=== PATIENT | female | born 1955 | race Caucasian/White ===

== ENCOUNTER 2019-10-13 11:30 | Emergency (ER) | payer OTHER ==
--- OUTSIDE RECORDS SUMMARY | 2019-10-13 11:32 | XMS REPORT | Summary of Care ---
:1955 Author Organization [facility] Address [address] [place] [id number] Care Team Providers Name Role Phone Pcp, Patient Does Not Have A Primary Care Provider Reason for Referral (CARMELA) Status Reason Specialty Diagnoses / Referred By Referred To Procedures Contact Contact Authorized Vascular Surgery Diagnoses Leg swelling Darron, Procedures BILATERAL VENOUS DUPLEX LOWER EXTREMITY BY VASCULAR LAB MD Francine [address] [place] [phone] Reason for Visit Reason Comments Follow-up BLE swelling (Routine) Status Reason Specialty Diagnoses / Referred By Referred To Procedures Contact Contact Closed LAW-VASCULAR Procedures Francine Rob, Francine Rob, SURGERY / CONSULT/REFERRAL MD MERCER Vascular Surgery VASCULAR SURGERY [address] [place] [address] NEW VISIT (FIRST [facility] TIME) [place] [phone] Phone: Encounter Details Date Type Department Care Team Description 03/11/2019 Office Visit [facility] Vascular Francine Rob, Leg swelling (Primary Surgery- Zia MERCER Dx) [address] [place] [address] [address] [address] [place], [place] [phone] [address] [phone] Allergies No Known Allergiesdocumented as of this encounter (statuses as of 03/11/2019) Medications Medication Sig Dispensed Refills Start Date End Date Status VALSARTAN ORAL Take by mouth. 0 Active cetirizine HCl (ZYRTEC Take by mouth. 0 Active ORAL) tamsulosin HCl (FLOMAX Take by mouth. 0 Active ORAL) furosemide (LASIX ORAL) Take by mouth. 0 Active rosuvastatin calcium Take by mouth. 0 Active (CRESTOR ORAL) documented as of this encounter (statuses as of 03/11/2019) Active Problems No known active problemsdocumented as of this encounter (statuses as of 2018) Social History Tobacco Use Types Packs/Day Years Used Date Never Assessed Sex Assigned at Date Recorded Not on file Job Start Date Occupation Industry Not on file Not on file Not on file Travel History Travel Start Travel End No recent travel history available. documented as of this encounter Last Filed Vital Signs Vital Sign Reading Time Taken Comments Blood Pressure 154/87 03/11/2019 8:52 AM CDT Pulse 80 03/11/2019 8:52 AM CDT Temperature 36.8 C (98.3 F) 03/11/2019 8:52 AM CDT Respiratory Rate 18 03/11/2019 8:52 AM CDT Oxygen Saturation - - Inhaled Oxygen Concentration - - Weight 108 kg (238 lb) 03/11/2019 8:52 AM CDT Height 167.6 cm (5' 6") 03/11/2019 8:52 AM CDT Body Mass Index 38.41 03/11/2019 8:52 AM CDT documented in this encounter Progress Notes Francine Rob MD - 03/11/2019 8:45 AM CDT Vascular Surgery Clinic Note Date of Service: 03/11/2019 HISTORY OF PRESENT ILLNESS: This 64 year old year old female patient presents for bilateral leg swelling that started about a week or two ago in BLE. She states that it is improved with lasix and elevation. She does have a familyhistory of "vein problems". She does not have any history of DVTs/PEs. She states that her PCP ordered some labs to check on her renal function however she has not had then drawn yet. She continues to make good urine. 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 She was told her also had a torn meniscus in the left knee. She has never tried compression stockings. PAST MEDICAL HISTORY: History reviewed. No pertinent past medical history. non-contributory for this patient presenting symptoms History reviewed. No pertinent surgical history. Medications: Current Outpatient Medications on File Prior to Visit Medication Sig Dispense Refill cetirizine HCl (ZYRTEC ORAL) Take by mouth. furosemide (LASIX ORAL) Take by mouth. rosuvastatin calcium (CRESTOR ORAL) Take by mouth. tamsulosin HCl (FLOMAX ORAL) Take by mouth. VALSARTAN ORAL Take by mouth. No current facility-administered medications on file prior to visit. I have reviewed the social history, it is non-contributory. I have reviewed the family history, it is non-contributory. Allergies: No Known Allergies Make sure patient is not allergic to Contrast (Iodine): No Review of Systems: (-)=Negative,(+)=Positive Constitutional: (-) fever, (-) chills Eyes: (-) Amarosis fugax Mouth/Throat: (-) facial droop Cardiovascular: (-) chest pain Respiratory: (-) cough Endocrine: (-) diabetes Musculoskeletal: (+) muscle pain, (+) joint pain, (-) claudication Integumentary: (+) dryness and (+) swelling Hematologic: (-) DVT Infectious Disease: (-) Neuro: (-) TIAs/ Stroke, (-) numbness Physical Exam: BP (!) 154/87 (BP Location: Right arm, Patient Position: Sitting, BP CUFF SIZE: Adult Large) | Pulse 80 | Temp 36.8 C (98.3 F) (Oral) | Resp 18 | Ht 1.676 m (5' 6") | Wt 108 kg (238 lb) | BMI38.41 kg/m Constitutional: alert, healthy and no acute distress Facial Droop: No Eyes: extra ocular movements intact Head: normal Respiratory: breathing comfortably on room air Cardio: regular rate Extremities: bilateral + edema, ability to check for pitting limited by patient' s pain, bilateral small areas of blanching erythema on distal shins, palpable DP pulses, no varicose veins seen but some reticular veins noted on left Neurologic: alert and oriented x 3 Psychiatric: alert, with appropriate affect Hematologic: (-) bruises and (-) hematoma Labs: No new labs. Imaging: No new Radiology. Vascular Labs: No new Vascular lab studies. Diagnosis: Solange Raymundo is a 64 year old female with new BLE swelling that improves with elevation and Lasix. Unclear whether this is venous versus renal (which is being worked up by her PCP). Does not appear concerning for acute DVTs at this point as is bilateral. Has not tried compression therapy. - Duplex reflux study - Compression stockings 20-30 mmHg during the day - Elevate legs when possible - RTC in 4 weeks (after workup of other possibilities of leg swelling) Francine Rob MD, [facility] Vascular Surgery Wendy Currie RN - 03/11/2019 8:45 AM CDTLechance Raymundo is a 64 year old female comes to clinic independent in ambulation for BLE swelling. Pt comes accompanied by . Pt in NAD w/ pain reported 0/10. Pt preferred language is Mohawk. Pt. denies fall in last 12 months. Allergies and medications reviewed and updated. documented in this encounter Plan of Treatment Date Type Specialty Care Team Description 04/08/2019 Office Visit Vascular Surgery Francine Rob MD [address] [place] [phone] Health Maintenance Due Date Last Done Comments HEPATITIS C (HCV) SCREEN 1955 DTaP,Tdap,and Td Vaccines (1 - 01/24/1976 Tdap) PAP SMEAR 1978 MAMMOGRAM 1997 COLONOSCOPY 2007 Zoster Recombinant Vaccine 2007 (SHINGRIX) (1 of 2) INFLUENZA VACCINE 03/30/2019 PNEUMOCOCCAL 0-64 YEARS COMBINED Aged Out No longer eligible based on SERIES patient's age to complete this topic documented as of this encounter Results Not on filedocumented in this encounter Visit Diagnoses Diagnosis Leg swelling - Primary Swelling of limb documented in this encounter documented as of this encounter
--- OUTSIDE RECORDS SUMMARY | 2019-10-13 11:32 | XMS REPORT | Summary of Care ---
:1955 Author Organization [facility] Address [address] [place] [address] Care Team Providers Name Role Phone Pcp, Patient Does Not Have A Primary Care Provider Reason for Referral (CARMELA) Status Reason Specialty Diagnoses / Referred By Referred To Procedures Contact Contact Authorized Vascular Surgery Diagnoses Leg swelling Darron, Procedures BILATERAL VENOUS DUPLEX LOWER EXTREMITY BY VASCULAR LAB MD Francine [address] [place] [phone] Reason for Visit Reason Comments Follow-up BLE swelling (Routine) Status Reason Specialty Diagnoses / Referred By Referred To Procedures Contact Contact Closed LAW-VASCULAR Procedures Francine Rbo, Francine Rob, SURGERY / CONSULT/REFERRAL MD MERCER Vascular Surgery VASCULAR SURGERY [address] [place] [address] NEW VISIT (FIRST [facility] TIME) [place] [phone] Phone: Encounter Details Date Type Department Care Team Description 03/11/[address] [facility] Vascular Francine Rob, Leg swelling (Primary Surgery- Zia MERCER Dx) [address] [place] [address] [address] [address] [place] [phone] [address] [phone] Allergies No Known Allergiesdocumented as of this [...] possibilities of leg swelling) Francine Rob MD, [facility] Vascular Surgery Wendy Currie RN - 03/11/2019 8:45 AM CDTLechance Raymundo is a 64 year old female comes to clinic independent in ambulation for BLE swelling. Pt comes accompanied by . Pt in NAD w/ pain reported 0/10. Pt preferred language is Italian. Pt. denies fall in last 12 months. Allergies and medications reviewed and updated. documented in this encounter Plan of Treatment Date Type Specialty Care Team Description 04/08/2019 Office Visit Vascular Surgery Francine Rob MD [address] [place] [phone] Health Maintenance Due Date Last Done [...]
--- OUTSIDE RECORDS SUMMARY | 2019-10-13 11:33 | XMS REPORT ---
:1955 Author Organization [employer] Care Team Providers Name Role Phone Cortes, Na Provider Role Unavailable Allergies, Adverse Reactions, Alerts Substance Reaction Event Type N.K.D.A. Info Not Available Non Drug Allergy Problems Problem Type Condition Code Onset Dates Condition Status Assessment BMI 38.0-38.9,adult Z68.38 Active Assessment Other specified bacterial agents as B96.89 Active the cause of diseases classified elsewhere Assessment Bilateral edema of lower extremity R60.0 Active Assessment Seasonal allergic rhinitis, J30.2 Active unspecified trigger Assessment Otalgia of right ear H92.01 Active Problem Seasonal allergic rhinitis due to J30.1 Active pollen Assessment Renal insufficiency N28.9 Active Problem Pre-operative exam Z01.818 Active Assessment Hyperlipidemia E78.5 Active Problem Primary osteoarthritis involving M15.0 Active multiple joints Problem Spondylolisthesis of lumbar region M43.16 Active Problem Spasm of back muscles M62.830 Active Problem Renal insufficiency N28.9 Active Problem BMI 38.0-38.9,adult Z68.38 Active Assessment Acute non-recurrent sinusitis, J01.90 Active unspecified location Problem Vitamin D deficiency E55.9 Active Assessment Hypertension I10 Active Problem Chronic back pain M54.9 Active Problem Chronic kidney disease (CKD) stage N18.3 Active G3a/A1, moderately decreased glomerular filtration rate (GFR) between 45-59 mL/min/1.73 square meter and albuminuria creatinine ratio less than 30 mg/g Problem Metabolic syndrome X E88.81 Active Problem Depression with anxiety F41.8 Active Problem Allergic rhinitis J30.9 Active Problem Hyperlipidemia E78.5 Active Problem Obesity E66.9 Active Problem Hypertension I10 Active Problem GERD (gastroesophageal reflux K21.9 Active disease) Problem Hyperglycemia R73.9 Active Problem Back pain M54.9 Active Problem Insomnia G47.00 Active Medications Medication Code Code Instructions Start End Status Dosage System Date Date Astelin NDC 0 Active not defined Lasix NDC 51410958478 20 MG Orally Active 1 tablet Once a day prn edema Lasix ND 05206400294 20 MG Orally Active 1 tablet Once a day prn edema Valsartan [facility] 48275704475 320 MG Orally Active 1 tablet Once a day Cyclobenzaprine HCl ND 89345167290 10 MG Orally Active 1 tablet as Three times a needed day Hydrochlorothiazide ND 82574603067 12.5 MG Serge Active 1 tablet in Orally Once a 09, the morning day 2019 Amlodipine Besylate ND 01451439108 5 MG Orally Active 1 tablet Once a day Esomeprazole ND 56248277139 40 MG Active TAKE ONE Magnesium CAPSULE BY MOUTH EVERY DAY Zyrtec Allergy ND 88932310007 10 MG Orally Active 1 tablet Once a day Aspir-81 [facility] 78946032249 81 MG Orally Active 1 tablet Once a day [place] [facility] [address]-73 325-10 MG Active 1 tablet as Orally every needed 6 hrs Meclizine HCl ND 58506604242 25 MG Orally Active 1 tablet as twice a day needed Valsartan [facility] 72332236331 320 MG Orally Active 1 tablet Once a day Ventolin HFA [facility] 69834207873 108 (90 Base) Active 2 puffs as MCG/ACT needed Inhalation every 6 hrs Medrol ND 22419498635 4 MG Orally Jul Active as directed daily , with food 2018 Crestor [facility] 01634369949 10 MG daily Active TAKE 1 TABLET AT BEDTIME Amlodipine Besylate ND 02925985589 5 MG Orally Active 1 tablet Once a day Augmentin [facility] 39879801386 875-125 MG Active 1 tablet Orally every 12 hrs Nexium ND 17104440129 20 MG Orally Active 1 capsule Once a day Crestor [facility] 70610929011 10 MG Orally Active TAKE 1 Once a day TABLET AT BEDTIME Ventolin HFA [facility] 54780431297 108 (90 Base) September Active 2 puffs as MCG/ACT , needed Inhalation 2017 every 6 hrs Zithromax ND 82919591975 500 MG Orally Active not defined Montelukast Sodium ND 72977643536 10 MG Orally Serge Active 1 tablet in Once a day , the evening 2018 Flonase ND 26051244548 50 MCG/ACT Active 2 spray in Nasally Once each nostril a day Augmentin [facility] 01594622589 875-125 MG Jul Active 1 tablet Orally every 09, 16, 12 hrs 2019 2019 Erythromycin [facility] 80175162236 5 MG/GM Active 1 Ophthalmic application Four times a day Acidophilus [facility] 37735081306 - Orally Active not defined Ambien [facility] 52529971592 5 MG Orally Active 1 tablet at Once a day bedtime Murali Finley [facility] 66795605008 100 MG Orally Active 1 capsule as Three times a needed day Results No Known Results Summary Purpose eClinicalWorks Submission
--- OUTSIDE RECORDS SUMMARY | 2019-10-13 11:33 | XMS REPORT | Summary of Care ---
:1955 Author Organization [facility] Address [address] [place] [address] Care Team Providers Name Role Phone Pcp, Patient Does Not Have A Primary Care Provider Reason for Visit Reason Comments Follow-up Auth/Cert Status Reason Specialty Diagnoses / Referred By Referred To Procedures Contact Contact Vascular Surgery [facility] Vascular Surgery [address] [facility] [address] [place] [address] Encounter Details Date Type Department Care Team Description 04/08/2019 Office Visit [facility] Vascular DarronSamanthaFrancine, Leg swelling (Primary Surgery- Zia MERCER Dx) [address] [address] [place], [place] [phone] [address] [phone] Allergies No Known Allergiesdocumented as of this encounter (statuses as of 04/08/2019) Medications Medication Sig Dispensed Refills Start Date End Date Status VALSARTAN ORAL Take by mouth. 0 Active cetirizine HCl (ZYRTEC Take by mouth. 0 Active ORAL) tamsulosin HCl (FLOMAX Take by mouth. 0 Active ORAL) furosemide (LASIX ORAL) Take by mouth. 0 Active rosuvastatin calcium Take by mouth. 0 Active (CRESTOR ORAL) documented as of this encounter (statuses as of 04/08/2019) Active Problems No known active problemsdocumented as [...] Sign Reading Time Taken Comments Blood Pressure 157/90 04/08/2019 11:01 AM CDT Pulse 80 04/08/2019 11:01 AM CDT Temperature 36.8 C (98.3 F) 04/08/2019 11:01 AM CDT Respiratory Rate 18 04/08/2019 11:01 AM CDT Oxygen Saturation - - Inhaled Oxygen Concentration - - Weight 106.4 kg (234 lb 9.6 oz) 04/08/2019 11:01 AM CDT Height 167.6 cm (5' 6") 04/08/2019 11:01 AM CDT Body Mass Index 37.87 04/08/2019 11:01 AM CDT documented in this encounter Progress Notes Francine Rob MD - 04/08/2019 11:00 AM CDT Vascular Surgery Clinic Note Date of Service: 04/08/2019 HISTORY OF PRESENT ILLNESS: This 64 year [...] knee. She has never tried compression stockings. Interval update (04/08/2019): Patient's leg swelling has nearly resolved with starting diuretic therapy. Was unable to wear the compression stockings secondary to hyperesthesia pain, but did notice improvement with elevation. PAST MEDICAL HISTORY: History reviewed. No pertinent [...] (-) TIAs/ Stroke, (-) numbness Physical Exam: BP: (157)/(90) Temp: [36.8 C (98.3 F)] Temp source: Oral (04/08 1101) Pulse: [80] Resp: [18] SpO2: -- Height: [167.6 cm (5' 6")] Weight: [106.4 kg (234 lb 9.6 oz)] BMI (calculated): [37.87] Constitutional: alert, healthy and no acute distress Facial Droop: No Eyes: extra ocular movements intact Head: normal Respiratory: breathing comfortably on room air Cardio: regular rate Extremities: no edema appreciated today on exam, no cyanosis or clubbing Neurologic: alert and oriented x 3 Psychiatric: alert, with appropriate affect Hematologic: (-) bruises and (-) hematoma Labs: No new labs. Imaging: No new Radiology. Vascular Labs: Right GSV BK reflux only, deep competent Left deep and superficial competent Diagnosis: Solange Raymundo is a 64 year old female with leg swelling that has resolved with diuretics. No significant venous insufficiency on duplex, just right below knee reflux. - recommend continuing elevation as tolerated - she will talk to her PCP about potentially seeing a knee specialist about her left knee pain - also would consider gabapentin for the hyperesthesia - RTC prn with vascular Francine Rob MD, [facility] Vascular Surgery Wendy Currie RN - 04/08/2019 11:00 AM Juansheila Raymundo is a 64 year old female comes to clinic independent in ambulation for leg swelling . Pt comes alone . Pt in NAD w/ pain reported 0/10. Pt preferred language is Tam[place]. Pt. denies fall in last 12 months. Allergies and medications reviewed and updated. documented in this encounter Plan of Treatment Health Maintenance Due Date Last Done Comments HEPATITIS C (HCV) SCREEN 1955 DTaP,Tdap,and Td Vaccines (1 - 01/24/1976 Tdap) PAP SMEAR 1978 MAMMOGRAM 1997 COLONOSCOPY 2007 Zoster Recombinant Vaccine 2007 (SHINGRIX) (1 of 2) INFLUENZA VACCINE (#1) 2019 PNEUMOCOCCAL 0-64 YEARS COMBINED Aged Out No longer eligible based on SERIES patient's age to complete this topic documented as of this encounter Results Not on filedocumented in this encounter Visit Diagnoses Diagnosis Leg swelling - Primary Swelling of limb documented in this encounter documented as of this encounter
--- OUTSIDE RECORDS SUMMARY | 2019-10-13 11:33 | XMS REPORT ---
:1955 Author Organization [employer] Care Team Providers Name Role Phone Cortes, Na Provider Role Unavailable Allergies No Known Allergies Problems Problem Type Condition Code Onset Dates Condition Status Problem Hyperlipidemia E78.5 Active Problem Insomnia G47.00 Active Problem Back pain M54.9 Active Problem Vitamin D deficiency E55.9 Active Problem Seasonal allergic rhinitis due to J30.1 Active pollen Problem BMI 38.0-38.9,adult Z68.38 Active Problem Obesity, morbid, BMI 40.0-49.9 E66.01 Active Problem Hyperglycemia R73.9 Active Problem GERD (gastroesophageal reflux K21.9 Active disease) Problem Renal insufficiency N28.9 Active Problem Metabolic syndrome X E88.81 Active Problem Spasm of back muscles M62.830 Active Problem Spondylolisthesis of lumbar region M43.16 Active Problem Pre-operative exam Z01.818 Active Problem Primary osteoarthritis involving M15.0 Active multiple joints Problem Depression with anxiety F41.8 Active Problem Obesity E66.9 Active Problem Chronic kidney disease (CKD) stage N18.3 Active G3a/A1, moderately decreased glomerular filtration rate (GFR) between 45-59 mL/min/1.73 square meter and albuminuria creatinine ratio less than 30 mg/g Problem Hypertension I10 Active Problem Chronic back pain M54.9 Active Problem Allergic rhinitis J30.9 Active Medications No Known Medications Results No Known Results Summary Purpose eClinicalWorks Submission
--- OUTSIDE RECORDS SUMMARY | 2019-10-13 11:33 | XMS REPORT ---
:1955 Author Organization eClinicalWorks Care Team Providers Name Role Phone Cortes, Na Provider Role Unavailable Allergies, Adverse Reactions, Alerts Substance Reaction Event Type N.K.D.A. Info Not Available Non Drug Allergy Problems Problem Type Condition Code Onset Dates Condition Status Assessment Other specified bacterial agents as B96.89 Active the cause of diseases classified elsewhere Assessment BMI 38.0-38.9,adult Z68.38 Active Assessment Symptomatic spider varicose vein I83.899 Active Assessment Primary osteoarthritis involving M15.0 Active multiple joints Assessment Renal insufficiency N28.9 Active Assessment Bilateral edema of lower extremity R60.0 Active Problem Seasonal allergic rhinitis due to J30.1 Active pollen Assessment Seasonal allergic rhinitis, J30.2 Active unspecified trigger Problem Pre-operative exam Z01.818 Active Assessment Acute sinusitis, unspecified J01.90 Active Problem Primary osteoarthritis involving M15.0 Active multiple joints Problem Spondylolisthesis of lumbar region M43.16 Active Problem Spasm of back muscles M62.830 Active Problem Renal insufficiency N28.9 Active Problem BMI 38.0-38.9,adult Z68.38 Active Assessment Hypertension I10 Active Problem Vitamin D deficiency E55.9 Active Assessment Hyperlipidemia E78.5 Active Problem Chronic back pain M54.9 Active [...] Start End Status Dosage System Date Date Esomeprazole [facility] 30925764243 40 MG Active TAKE ONE Magnesium CAPSULE BY MOUTH EVERY DAY Augmentin [facility] 62723653349 875-125 MG Mar 21Feb Active 1 tablet Orally every 2018 30, 12 hrs [address] [facility] 97455163293 10 MG Orally Active TAKE 1 TABLET Once a day AT BEDTIME Ventolin HFA [facility] 28453581294 108 (90 Base) September Active 2 puffs as MCG/ACT 27, needed Inhalation 2018 every 6 hrs Cyclobenzaprine ND 74618019926 10 MG Orally Active 1 tablet as HCl Three times a needed day Ventolin HFA ND 73836771311 108 (90 Base) Active 2 puffs as MCG/ACT needed Inhalation every [address] [facility] 62608774044 875-125 MG Active 1 tablet Orally every [address] [facility] 39519692763 4 MG Orally Aug 19, Active as directed daily 2018 with food Valsartan [facility] 74299831602 320 MG Orally Active 1 tablet Once a day Crestor [facility] 58404376591 10 MG daily Active TAKE 1 TABLET AT BEDTIME Meclizine HCl ND 67042387652 25 MG Orally Active 1 tablet as twice a day needed Kodiak [facility] [address]-55 325-10 MG Active 1 tablet as Orally every 6 needed hrs Tessalon Perles [facility] 37583314009 100 MG Orally Active 1 capsule as Three times a needed day Erythromycin ND 59469510835 5 MG/GM Active 1 application Ophthalmic Four times a day Lasix [facility] 47749090418 20 MG Orally Active 1 tablet Once a day prn edema Zyrtec Allergy [facility] 44830315110 10 MG Orally Active 1 tablet Once a day Amlodipine [facility] 30714727796 5 MG Orally Active 1 tablet Besylate Once a day Amlodipine [facility] 79737668189 5 MG Orally Active 1 tablet Besylate Once a day Nexium ND 41086375144 20 MG Orally Active 1 capsule Once a day Montelukast ND 28303424099 10 MG Orally Aug 19, Active 1 tablet in Sodium Once a day 2018 the evening Flonase ND 41864336353 50 MCG/ACT Active 2 spray in Nasally Once a each nostril day Ambien [facility] 87820176754 5 MG Orally Active 1 tablet at Once a day bedtime Valsartan [facility] 19210326165 320 MG Orally Active 1 tablet Once a day [facility] 21536580623 81 MG Orally Active 1 tablet Once a day Astelin [facility] 0 Active not defined Zithromax [facility] 73140224587 500 MG Orally Active not defined Acidophilus [facility] 37495820828 - Orally Active not defined Results No Known Results Summary Purpose eClinicalWorks Submission
--- OUTSIDE RECORDS SUMMARY | 2019-10-13 11:33 | XMS REPORT | Summary of Care ---
:1955 Author Organization [facility] Address [address] [place] [address] Care Team Providers Name Role Phone Pcp, Patient Does Not Have A Primary Care Provider Reason for Visit Reason Comments Follow-up Auth/Cert Status Reason Specialty Diagnoses / Referred By Referred To Procedures Contact Contact Vascular Surgery Adc Vascular Surgery [address] [facility] [address] [place] [address] Encounter Details Date Type Department Care Team Description 04/08/2019 Office Visit [facility] Vascular DarronSamanthaFrancine, Leg swelling (Primary Surgery- Zia MERCER Dx) [address] [id number] [place], [place] [phone] [address] [phone] Allergies No Known Allergiesdocumented as of this [...] RTC prn with vascular Francine Rob MD, [facility] Vascular Surgery Wendy Currie RN - 04/08/2019 11:00 AM Juansheila Raymundo is a 64 year old female comes to clinic independent in ambulation for leg swelling . Pt comes alone . Pt in NAD w/ pain reported 0/10. Pt preferred language is Latvian. Pt. denies fall in last 12 months. [...]
--- OUTSIDE RECORDS SUMMARY | 2019-10-13 11:33 | XMS REPORT | Summary of Care ---
:1955 Author Organization [facility] Address [address] [place] [address] Care Team Providers Name Role Phone Pcp, Patient Does Not Have A Primary Care Provider Reason for Referral (CARMELA) Status Reason Specialty Diagnoses / Referred By Referred To Procedures Contact Contact Closed Vascular Sonography Diagnoses Leg swelling Francine Rob, Procedures BILATERAL VENOUS DUPLEX LOWER EXTREMITY BY VASCULAR LAB [address] [place] [phone] (CARMELA) Status Reason Specialty Diagnoses / Referred By Referred To Procedures Contact Contact Closed Vascular Sonography Diagnoses Leg swelling Francine Rob, Procedures BILATERAL VENOUS DUPLEX LOWER EXTREMITY BY VASCULAR LAB [address] [place] [phone] Reason for Visit Reason Comments Leg Pain (Routine) Status Reason Specialty Diagnoses / Referred By Referred To Procedures Contact Contact Closed IM-CARDIOVASCULAR Procedures Francine Rob Tech, Adc Cardio DISEASE / Vascular CA DUPLEX EXTREM Vascular Sonography VENOUS,BILAT [address] [place] [address] [place] [address] Encounter Details Date Type Department Care Team Description 03/11/2019 Hospital Encounter [facility] Francine Rob MD [address] [place] [phone] Leg swelling [facility] Tech, Adc Cardio Vascular [address] [facility] [place] [phone] Allergies No Known Allergiesdocumented as of this encounter (statuses as of 03/12/2019) Medications Medication Sig Dispensed Refills Start Date End Date Status VALSARTAN ORAL Take by mouth. 0 Active cetirizine HCl (ZYRTEC Take by mouth. 0 Active ORAL) tamsulosin HCl (FLOMAX Take by mouth. 0 Active ORAL) furosemide (LASIX ORAL) Take by mouth. 0 Active rosuvastatin calcium Take by mouth. 0 Active (CRESTOR ORAL) documented as of this encounter (statuses as of 03/12/2019) Active Problems No known active problemsdocumented as [...] of this encounter Last Filed Vital Signs Not on filedocumented in this encounter Plan of Treatment Date Type Specialty Care Team Description 04/08/2019 Office Visit Vascular Surgery Francine Rob MD [address] [place] [phone] Health Maintenance Due Date Last Done Comments HEPATITIS C (HCV) SCREEN 1955 DTaP,Tdap,and Td Vaccines (1 - 01/24/1976 Tdap) PAP SMEAR 1978 MAMMOGRAM 1997 COLONOSCOPY 2007 Zoster Recombinant Vaccine 2007 (SHINGRIX) (1 of 2) INFLUENZA VACCINE 03/30/2019 PNEUMOCOCCAL 0-64 YEARS COMBINED Aged Out No longer eligible based on SERIES patient's age to complete this topic documented as of this encounter Procedures Procedure Name Priority Date/Time Associated Diagnosis Comments BILATERAL VENOUS DUPLEX CARMELA 03/11/2019 8:16 AM CDT Leg swelling LOWER EXTREMITY BY VASCULAR LAB documented in this encounter Results Not on filedocumented in this encounter Visit Diagnoses Diagnosis Leg swelling Swelling of limb documented in this encounter documented as of this encounter
--- OUTSIDE RECORDS SUMMARY | 2019-10-13 11:34 | XMS REPORT ---
:1955 Author Organization [facility] Address [address] [place] [address] [address] [place] [address] Care Team Providers Name Role Phone Unavailable Unavailable Unavailable Payers Payer Name Policy Type Policy Number Effective Date Expiration Date Problems This patient has no known problems. Allergies, Adverse Reactions, Alerts Allergy Allergy Status Severity Reaction(s) Onset Inactive Treating Comments Name Type Date Date Clinician No Known DA Active U 2018-04 Allergies - 00:00:0 0 No Known DA Active U 2018-04 Allergies - 00:00:0 0 No Known DA Active U 2018-03 Allergies - 00:00:0 0 No Known DA Active U 2018-01 Allergies - 00:00:0 0 Medications This patient has no known medications.
--- OUTSIDE RECORDS SUMMARY | 2019-10-13 11:34 | XMS REPORT ---
[...] Active pollen Problem BMI 38.0-38.9,adult Z68.38 Active Assessment Hypertension I10 Active Problem Obesity, morbid, BMI 40.0-49.9 E66.01 [...] Active Problem Allergic rhinitis J30.9 Active Medications Medication Code System Code Instructions Start Date End Date Status Dosage Valsartan [facility] [id number] 320 MG Orally Active 1 tablet Once a day Results No Known Results Summary Purpose eClinicalWorks Submission
[2019-10-13] MEDS ORDERED: LIDOCAINE VISCOUS 2% SOLN 15 ML UDC ONE (13:07)
[2019-10-13] MEDS ORDERED: MORPHINE 4 MG/ML SYR ONE (13:07)
[2019-10-13] MEDS ORDERED: ONDANSETRON 4 MG/2 ML VIAL ONE (13:07)
[2019-10-13] MEDS ORDERED: MAGNE/ALUM HYDROXD 30 ML UCUP ONE (13:07)
[2019-10-13] MEDS ORDERED: NA CHLORIDE 0.9% 1,000 ML ONE (13:08)
[2019-10-13 13:10] LABS: Absolute Lymphocytes (CBC) 2.6 K/uL (0.7-4.9); Basophils % 0.7 % (0-1.3); Hematocrit 46.5 % (36.0-45.0); Lymphocytes % 27.1 % (15.3-44.8); MPV 10.6 fL (7.6-11.3); RBC Red Blood Cell Count 5.04 M/uL (3.86-4.86)
--- NOTE | 2019-10-13 13:25 | RAD REPORT ---
EXAM DESCRIPTION: US - Abdomen Exam Limited - 10/13/2019 1:06 pm CLINICAL HISTORY: RUQ abd pain COMPARISON: ESOPHAGRAM ONLY dated 03/21/2013 FINDINGS: No gallstones, sludge or other abnormalities within the gallbladder lumen. There is no wal l thickening or pericholecystic fluid. No common duct stone or biliary tree dilatation identified. IMPRESSION: Normal gallbladder and biliary tree ultrasound. The patient did have pain with transducer pressure over the right upper quadrant. This positive Benito y's sign in the absence of gallbladder imaging abnormality is nonspecific.
[2019-10-13 13:48] LABS: Albumin 3.5 g/dL (3.4-5.0); Bilirubin Direct 0.2 mg/dL (0-0.2); Bilirubin Total 0.6 mg/dL (0.2-1.0); Potassium 3.8 mmol/L (3.5-5.1); Protein, Total 8.1 g/dL (6.4-8.2)
--- NOTE | 2019-10-13 14:15 | ER ---
Nurse's Notes [facility] Name: Solange Raymundo Age: 64 yrs Sex: Female : 1955 Arrival Date: 10/13/2019 Time: 11:32 Bed 7 Private MD: Claudette Cortes Diagnosis: Upper abdominal pain, unspecified Presentation: 10/12 12:09 Chief complaint: Patient states: fever, chills, stomach pain radiating to back since iw Sunday, had a little gas , felt a little better today but back started hurting again. Coronavirus screen: The patient has NOT traveled to a country currently being monitored by the [facility] within the last 14 days. Proceed with normal triage procedures. The patient has NOT had contact with any known and/or suspected case of coronavirus. Proceed with normal triage procedures. Ebola Screen: Patient negative for fever greater than or equal to 101.5 degrees Fahrenheit, and additional compatible Ebola Virus Disease symptoms Patient denies exposure to infectious person. Patient denies travel to an Ebola-affected area in the 21 days before illness onset. No symptoms or risks identified at this time. Initial Sepsis Screen: Does the patient meet any 2 criteria? No. Patient's initial sepsis screen is negative. Does the patient have a suspected source of infection? No. Patient's initial sepsis screen is negative. Risk Assessment: Do you want to hurt yourself or someone else? Patient reports no desire to harm self or others. 12:09 Method Of Arrival: Ambulatory iw 12:09 Acuity: DORIS 3 iw Triage Assessment: 12:10 General: Appears in no apparent distress. comfortable, Behavior is cooperative, bp appropriate for age, anxious. Pain: Complains of pain in back and abdomen. EENT: No deficits noted. Neuro: No deficits noted. Cardiovascular: No deficits noted. Respiratory: No deficits noted. GI: Abdomen is non-distended. : No signs and/or symptoms were reported regarding the genitourinary system. Derm: No deficits noted. Musculoskeletal: No deficits noted. Historical: - Allergies: 12:13 No Known Allergies; iw - Home Meds: 12:13 valsartan-hydrochlorothiazide 320-25 mg oral tab 1 tab once daily [Active]; Nexium 20 iw mg Oral cpDR 1 cap once daily [Active]; Zyrtec 10 mg Oral chew 1 tab once daily [Active]; Crestor 10 mg oral tab 1 tab once daily [Active]; Acidophilus Oral cap daily [Active]; fiber oral powd [Active]; Vitamin C Oral daily [Active]; - PMHx: 12:13 Hypertension; Hyperlipidemia; iw - PSHx: 12:13 back; iw - Immunization history:: Adult Immunizations up to date. - Social history:: Smoking status: Patient denies any tobacco usage or history of. Patient/guardian denies using alcohol, street drugs, The patient lives with family. - Family history:: not pertinent. Screenin:24 Abuse screen: Denies threats or abuse. Denies injuries from another. Nutritional bp screening: No deficits noted. Tuberculosis screening: No symptoms or risk factors identified. Fall Risk None identified. Assessment: 12:15 General: SEE TRIAGE NOTE. bp 12:58 Reassessment: PT TO U/S. bp 13:25 Reassessment: Patient appears in no apparent distress at this time. Patient and/or hb family updated on plan of care and expected duration. Pain level reassessed. Patient is alert, oriented x 3, equal unlabored respirations, skin warm/dry/pink. 14:30 Reassessment: Patient appears in no apparent distress at this time. Patient and/or hb family updated on plan of care and expected duration. Pain level reassessed. Patient is alert, oriented x 3, equal unlabored respirations, skin warm/dry/pink. Vital Signs: 12:09 BP 152 / 100; Pulse 91; Resp 16; Temp 97.1; Pulse Ox 100% on R/A; Weight 104.33 kg; iw Height 5 ft. 4 in. (162.56 cm); Pain 8/10; 13:23 BP 148 / 82; Pulse 77; Resp 17; Pulse Ox 99% ; Pain 8/10; hb 14:30 BP 127 / 73; Pulse 74; Resp 15; Pulse Ox 99% ; Pain 2/10; hb 12:09 Body Mass Index 39.48 (104.33 kg, 162.56 cm) iw ED Course: 11:32 Patient arrived in ED. ag5 11:33 Claudette Cortes MD is Private Physician. ag5 12:12 Triage completed. iw 12:14 Joe Recinos MD is Attending Physician. ma2 12:19 Carlitos, Gonzalez, RN is Primary Nurse. bp 12:23 Arm band placed on right wrist. bp 12:24 Patient has correct armband on for positive identification. Bed in low position. Call bp light in reach. Side rails up X2. Adult w/ patient. 12:48 Inserted saline lock: 22 gauge in left forearm, using aseptic technique. ,using aseptic hb technique. by VALERIE Blood collected. 13:08 US Abdomen Limited In Process Unspecified. EDMS 14:14 Tim Euceda MD is Referral Physician. ma2 14:43 No provider procedures requiring assistance completed. IV discontinued, intact, hb bleeding controlled, No redness/swelling at site. Pressure dressing applied. Administered Medications: 13:24 Drug: NS 0.9% 1000 ml Route: IV; Rate: 1 bolus; Site: left forearm; hb 14:30 Follow up: Response: No adverse reaction; IV Status: Completed infusion; IV Intake: hb 1000ml 13:24 Drug: Zofran (Ondansetron) 4 mg Route: IVP; Site: left forearm; hb 14:15 Follow up: Response: No adverse reaction hb 13:24 Drug: morphine 4 mg Route: IVP; Site: left forearm; hb 14:00 Follow up: Response: No adverse reaction hb 13:25 Drug: Pepcid 20 mg Route: IVP; Site: left forearm; hb 14:00 Follow up: Response: No adverse reaction hb 13:25 Drug: GI Cocktail without - (Maalox Suspension 30 ml, Lidocaine Liquid 2 % 15 hb ml) Route: PO; 14:00 Follow up: Response: No adverse reaction hb Intake: 14:30 IV: 1000ml; Total: 1000ml. hb Outcome: 14:14 Discharge ordered by . ma2 14:43 Discharged to home ambulatory, with significant other. hb 14:43 Condition: stable 14:43 Discharge instructions given to patient, significant other, Instructed on discharge instructions, follow up and referral plans. medication usage, Demonstrated understanding of instructions, follow-up care, medications, Prescriptions given X 2. 14:45 Patient left the ED. hb Signatures: Dispatcher [employer] EDMS Yulisa Henderson RN RN Francy Solo RN RN hb Gonzalez Urbina RN RN bp Joe Recinos MD MD ma2 Zana Fabian ag5 Corrections: (The following items were deleted from the chart) 13:25 13:13 Inserted saline lock: 22 gauge in left forearm, using aseptic technique. ,using hb aseptic technique. by VALERIE Blood collected. hb
--- NOTE | 2019-10-13 14:16 | EDPHYS ---
Physician Documentation [facility] Name: Solange Raymundo Age: 64 yrs Sex: Female : 1955 Arrival Date: 10/13/2019 Time: 11:32 Bed 7 Private MD: Claudette Cortes ED Physician Joe Recinos HPI: 10/12 14:10 This 64 yrs old Female presents to ER via Ambulatory with complaints of ma2 Abdominal Pain, Back Pain. 14:10 Onset: The symptoms/episode began/occurred gradually, 1 day(s) ago. Associated signs ma2 and symptoms: Pertinent positives: abdominal pain, Pertinent negatives: constipation, fever, hematuria, incontinence. Severity of symptoms: At their worst the symptoms were moderate, in the emergency department the symptoms are unchanged. The patient has not experienced similar symptoms in the past. Historical: - Allergies: 12:13 No Known Allergies; iw - Home Meds: 12:13 valsartan-hydrochlorothiazide 320-25 mg oral tab 1 tab once daily [Active]; Nexium 20 iw mg Oral cpDR 1 cap once daily [Active]; Zyrtec 10 mg Oral chew 1 tab once daily [Active]; Crestor 10 mg oral tab 1 tab once daily [Active]; Acidophilus Oral cap daily [Active]; fiber oral powd [Active]; Vitamin C Oral daily [Active]; - PMHx: 12:13 Hypertension; Hyperlipidemia; iw - PSHx: 12:13 back; iw - Immunization history:: Adult Immunizations up to date. - Social history:: Smoking status: Patient denies any tobacco usage or history of. Patient/guardian denies using alcohol, street drugs, The patient lives with family. - Family history:: not pertinent. ROS: 14:10 Constitutional: Negative for fever, chills, and weight loss. ma2 14:10 All other systems are negative. Exam: 14:10 Constitutional: This is a well developed, well nourished patient who is awake, alert, ma2 and in no acute distress. Head/Face: Normocephalic, atraumatic. Chest/axilla: Normal chest wall appearance and motion. Nontender with no deformity. No lesions are appreciated. Cardiovascular: Regular rate and rhythm with a normal S1 and S2. No gallops, murmurs, or rubs. Normal PMI, no JVD. No pulse deficits. Respiratory: Lungs have equal breath sounds bilaterally, clear to auscultation and percussion. No rales, rhonchi or wheezes noted. No increased work of breathing, no retractions or nasal flaring. Abdomen/GI: Soft, non-tender, with normal bowel sounds. No distension or tympany. No guarding or rebound. No evidence of tenderness throughout. Vital Signs: 12:09 BP 152 / 100; Pulse 91; Resp 16; Temp 97.1; Pulse Ox 100% on R/A; Weight 104.33 kg; iw Height 5 ft. 4 in. (162.56 cm); Pain 8/10; 13:23 BP 148 / 82; Pulse 77; Resp 17; Pulse Ox 99% ; Pain 8/10; hb 14:30 BP 127 / 73; Pulse 74; Resp 15; Pulse Ox 99% ; Pain 2/10; hb 12:09 Body Mass Index 39.48 (104.33 kg, 162.56 cm) iw MDM: 12:14 Patient medically screened. ma2 14:12 Differential diagnosis: Ligament Injury Obesity sprain. Data reviewed: vital signs, ri2 nurses notes. Counseling: I had a detailed discussion with the patient and/or guardian regarding: the historical points, exam findings, and any diagnostic results supporting the discharge/admit diagnosis, the presence of at least one elevated blood pressure reading (>120/80) during this emergency department visit, the need for outpatient follow up. Response to treatment: the patient's symptoms have resolved after treatment. ED course: no drug seeking via animal laboratory technician aware. 10/12 12:38 Order name: Basic Metabolic Panel; Complete Time: 13:57 [facility] 10/12 12:38 Order name: CBC with Diff [facility] 10/12 12:38 Order name: Creatinine for Radiology; Complete Time: 13:27 [facility] 10/12 12:38 Order name: Hepatic Function; Complete Time: 13:57 [facility] 10/12 12:38 Order name: Lipase; Complete Time: 13:57 [facility] 10/12 14:12 Order name: Urine Dipstick--Ancillary (enter results) 10/12 12:38 Order name: IV Saline Lock; Complete Time: 13:25 [facility] 10/12 12:38 Order name: US Abdomen Limited; Complete Time: 13:57 ma2 10/12 14:18 Order name: Urine Dipstick-Ancillary [facility] 10/12 12:38 Order name: Labs collected and sent; Complete Time: 13:25 ma2 Administered Medications: 13:24 Drug: NS 0.9% 1000 ml Route: IV; Rate: 1 bolus; Site: left forearm; hb 14:30 Follow up: Response: No adverse reaction; IV Status: Completed infusion; IV Intake: hb 1000ml 13:24 Drug: Zofran (Ondansetron) 4 mg Route: IVP; Site: left forearm; hb 14:15 Follow up: Response: No adverse reaction hb 13:24 Drug: morphine 4 mg Route: IVP; Site: left forearm; hb 14:00 Follow up: Response: No adverse reaction hb 13:25 Drug: Pepcid 20 mg Route: IVP; Site: left forearm; hb 14:00 Follow up: Response: No adverse reaction hb 13:25 Drug: GI Cocktail without - (Maalox Suspension 30 ml, Lidocaine Liquid 2 % 15 hb ml) Route: PO; 14:00 Follow up: Response: No adverse reaction hb Disposition: 10/13/19 14:14 Discharged to Home. Impression: Upper abdominal pain, unspecified. - Condition is Stable. - Discharge Instructions: Abdominal Pain, Adult. - Prescriptions for Zofran 4 mg Oral Tablet - take 1 tablet by ORAL route every 12 hours As needed; 20 tablet. Pepcid 20 mg Oral Tablet - take 1 tablet by ORAL route once daily; 20 tablet. - Medication Reconciliation Form, Thank You Letter, Antibiotic Education, Prescription Opioid Use form. - Follow up: Tim Euceda MD; When: Tomorrow; Reason: Continuance of care. Signatures: Dispatcher [employer] EDDC Yulisa Henderson RN RN Francy Solo RN RN Joe Recinos MD MD ma2 Corrections: (The following items were deleted from the chart) 14:45 14:14 10/13/2019 14:14 Discharged to Home. Impression: Upper abdominal pain, hb unspecified. Condition is Stable. Forms are Medication Reconciliation Form, Thank You Letter, Antibiotic Education, Prescription Opioid Use. Follow up: Tim Euceda; When: Tomorrow; Reason: Continuance of care. ma2
[2019-10-13 14:18] LABS: Urine Blood NEGATIVE (NEG); Urine Glucose NEGATIVE (NEG); Urine Protein NEGATIVE (NEG); Urine pH 5.5 (5.0-7.0)
[2019-10-13 14:59] VITALS: O2SAT 99
[2019-10-13 15:00] VITALS: BP 127/73
[2019-10-13 15:02] LABS: Anisocytosis 1+; Blood Morphology Comment NOTED (NOT SEEN); Platelet Estimate ADEQ; Poikilocytosis 1+; White Blood Cell Scan OK
[2019-10-13 15:09] VITALS: TEMP 97.4
== END 2019-10-13 14:45 | disposition home or self-care (01) ==
LOC: ER 11:30
DX: R10.10 Upper abdominal pain, unspecified (principal); I10 Essential (primary) hypertension; E78.5 Hyperlipidemia, unspecified
CPT/HCPCS: 96361; 85025; 80048; 36415; 80076; 81003; 83690; 76705; 96375; 96374; 99284; J7030; J2405

== ENCOUNTER 2022-04-24 10:59 | Observation (INO) | payer OTHER ==
--- OUTSIDE RECORDS SUMMARY | 2022-04-24 11:03 | XMS REPORT | Continuity of Care Document ---
:1955 Author Organization [facility] t Address [address] [place] [address] Care Team Providers Name Role Phone Asked, No Pcp Primary Care Physician Unavailable Claudette Cortes Attending Clinician Unavailable Francine Rob MD Attending Clinician [facility] Cardio Vascular Attending Clinician Unavailable Payers Payer Name Policy Type Policy Number Effective Date Expiration Date S ource Problems Condition Condition Condition Status Onset Resolution Last Treating Co mments Source Name Details Category Date Date Treatment Clinician Date Sacroiliit Sacroiliit Disease Active M ethodi is is [facility]-28 [facility]: Hospita 00 l No known No known Disease Unive rs active active ity of problems problems [facility] Allergies, Adverse Reactions, Alerts Allergy Allergy Status Severity Reaction(s) Onset Inactive Treating Comm ents Source Name Type Date Date Clinician No Known DA Active U 2017-07 [facility] [place] [facility] No Known DA Active U 2017-07 [facility] [place] [facility] No Known DA Active U [facility] [place] [facility] No Known DA Active U [facility] [place] 00:[facility] l Social History Social Habit Start Date Stop Date Quantity Comments Source Tobacco use and 2018-01-18 2018-01-18 Smokeless tobacco Me [facility]od[facility] exposure 00:00:00 00:00:00 non-user Hospital Alcohol intake 2018-01-18 2018-01-18 Current Nondenominational 00:00:00 00:00:00 non-drinker of Hospital alcohol (finding) Sex Ass[birth year] At [birth year] [facility] 00:00:00 00:00:00 Hospital Smoking Status Start Date Stop Date Source Unknown if ever smoked [facility] Never smoked tobacco [facility] Medications Ordered Filled Start Stop Current Ordering Indication Dosage Frequency Signature Comments Components Source Medication Medication Date Date Medication? Clinician (SIG) Name Name Albuterol Albuterol 0 Yes Na Cortes 2 puffs Common Sulfate HFA Sulfate HFA 8-07 S pirit 00:00: - [facility] 00 [facility] PredniSONE PredniSONE 2019-0 2020- No Na Cortes 2 tablets Common 8-07 08-17 dailyx 5 Spirit 00:00: 00:00 days then - [facility] 00 :[address] x 5 [facility] Metoprolol Metoprolol 0 Yes Na Cortes as Common Succinate Succinate 2-10 directed S pirit 00:00: - [facility] 00 [facility] furosemide Yes Take by Univ ers (LASIX 8-13 mouth. ity of ORAL) 13:55: [address] rosuvastati Yes Take by Uni vers n calcium 8-13 mouth. ity of (CRESTOR 13:55: [place] ORAL) [address] [place] [address] VALSARTAN Yes Take by Unive rs ORAL 8-13 mouth. ity of 13:55: [address] cetirizine Yes Take by Univ ers HCl (ZYRTEC 8-13 mouth. ity of ORAL) 13:55: [address] tamsulosin Yes Take by Univ ers HCl (FLOMAX 8-13 mouth. ity of ORAL) 13:55: [address] furosemide 2019-0 Yes Take by Univ ers (LASIX 8-13 mouth. ity of ORAL) 13:55: [address] rosuvastati Yes Take by Uni vers n calcium 8-13 mouth. ity of (CRESTOR 13:55: [place] ORAL) [address] [place] [address] VALSARTAN Yes Take by Unive rs ORAL 8-13 mouth. ity of 13:55: [address] cetirizine Yes Take by Univ ers HCl (ZYRTEC 8-13 mouth. ity of ORAL) 13:55: [address] tamsulosin Yes Take by Univ ers HCl (FLOMAX 8-13 mouth. ity of ORAL) 13:55: [address] furosemide Yes Take by Univ ers (LASIX 8-13 mouth. ity of ORAL) 13:55: [address] rosuvastati Yes Take by Uni vers n calcium 8-13 mouth. ity of (CRESTOR 13:55: [place] ORAL) [address] [place] [address] VALSARTAN Yes Take by Unive rs ORAL 8-13 mouth. ity of 13:55: [address] cetirizine Yes Take by Univ ers HCl (ZYRTEC 8-13 mouth. ity of ORAL) 13:55: [address] tamsulosin Yes Take by Univ ers HCl (FLOMAX 8-13 mouth. ity of ORAL) 13:55: [address] furosemide Yes Take by Univ ers (LASIX 8-13 mouth. ity of ORAL) 13:55: [address] rosuvastati Yes Take by Uni vers n calcium 8-13 mouth. ity of (CRESTOR 13:55: [place] ORAL) [address] [place] [address] VALSARTAN Yes Take by Unive rs ORAL 8-13 mouth. ity of 13:55: [address] cetirizine Yes Take by Univ ers HCl (ZYRTEC 8-13 mouth. ity of ORAL) 13:55: [address] tamsulosin Yes Take by Univ ers HCl (FLOMAX 8-13 mouth. ity of ORAL) 13:55: [address] furosemide Yes Take by Univ ers (LASIX 8-13 mouth. ity of ORAL) 13:55: [address] rosuvastati Yes Take by Uni vers n calcium 8-13 mouth. ity of (CRESTOR 13:55: [address] VALSARTAN Yes Take by Unive rs ORAL 8-13 mouth. ity of 13:55: [address] cetirizine Yes Take by Univ ers HCl (ZYRTEC 8-13 mouth. ity of ORAL) 13:55: [address] tamsulosin Yes Take by Univ ers HCl (FLOMAX 8-13 mouth. ity of ORAL) 13:55: [address] Montelukast Montelukast Yes Na Cortes 1 tablet Common Sodium Sodium 1-21 in the Spirit 00:00: evening - [facility] 00 [facility] Medrol Medrol Yes Na Cortes as Common 1-21 directed Spirit 00:00: with food - [facility] rosuvastati Yes 10mg QD Take 10 mg Methodi n (CRESTOR) 6-[address] 10 MG 16:07: daily. Hospita tablet 45 l acetaminoph Yes Take by Met hodi en (TYLENOL 6-[address] EXTRA 16:07: Hospita STRENGTH 45 l ORAL) cetirizine Yes 10mg QD Take 10 mg M ethodi (ZyrTEC) 10 6-[address] MG tablet 16:07: daily. Hospit a 45 l valsartan Yes 320mg QD Take 320 Met hodi (DIOVAN) 6-[address] 320 MG 16:07: mouth Hospita tablet 45 daily. l esomeprazol Yes 40mg QD Take 40 mg Methodi e (NexIUM) 6-[address] 40 MG 16:07: daily Hospita capsule 45 before l breakfast. Ventolin Ventolin Yes Na Cortes 2 puffs as Common HFA HFA 3-27 needed Spirit 00:00: - [facility] 00 [facility] Flonase Flonase Yes Na Cortes 2 spray in Common each Spirit nostril - [facility] Astelin Astelin Yes Na Cortes not Common defined Spirit - [facility] Lasix Lasix Yes Na Cortes 1 tablet Common [facility] Zyrtec Zyrtec Yes Na Cortes 1 tablet Comm on Allergy Allergy [facility] Esomeprazol Esomeprazol Yes Na Cortes TAKE ONE Common e Magnesium e Magnesium CAPSULE BY [facility] EVERY DAY [facility] Lasix Lasix Yes Na Cortes 1 tablet Common [facility] Acidophilus Acidophilus Yes Na Cortes not Common defined [facility] Erythromyci Erythromyci Yes Na Cortes 1 Common n n applicatio [facility] n [facility] Tessalon Tessalon Yes Na Cortes 1 capsule Common Perles Perles as needed [facility] Zithromax Zithromax Yes Na Cortes not Co mmon defined [facility] Ambien Ambien Yes Na Cortes 1 tablet Comm on at bedtime [facility] Valsartan Valsartan Yes Na Cortes 1 tablet Common [facility] Nexium Nexium Yes Na Cortes 1 capsule Com mon [facility] Meclizine Meclizine Yes Na Cortes 1 tablet Common HCl HCl as needed [facility] Amlodipine Amlodipine Yes Na Cortes 1 tablet Common Besylate Besylate [facility] Aspir-81 Aspir-81 Yes Na Cortes 1 tablet Common [facility] Augmentin Augmentin Yes Na Cortes 1 tablet Common [facility] [place] Yes Na Cortes 1 tablet Common as needed [facility] Cyclobenzap Cyclobenzap Yes Na Cortes 1 tablet Common rine HCl rine HCl as needed Sp maylin [facility] Amlodipine Amlodipine Yes Na Cortes 1 tablet Common Besylate Besylate [facility] Hydrochloro Hydrochloro Yes Na Cortes 1 tablet Common thiazide thiazide in the Spiri t morning [facility] Crestor Crestor Yes Na Cortes TAKE 1 Comm on TABLET AT [facility] BEDTIME [facility] Vital Signs Vital Name Observation Time Observation Value Comments Source Systolic blood 2019-04-08 16:01:00 157 mm[Hg] Univer sity of pressure [facility] Diastolic blood 2019-04-08 16:01:00 90 mm[Hg] Unive rsity of pressure [facility] Heart rate 2019-04-08 16:01:00 80 /min [facility] [place] [facility] Body temperature 2019-04-08 16:01:00 36.83 Jena [facility] Respiratory rate 2019-04-08 16:01:00 18 /min [facility] Body height 2019-04-08 16:01:00 167.6 cm [facility] Body weight 2019-04-08 16:01:00 106.414 kg [facility] BMI 2019-04-08 16:01:00 37.87 kg/m2 [facility] Systolic blood 2019-03-11 13:52:00 154 mm[Hg] Univer sity of pressure [facility] Diastolic blood 2019-03-11 13:52:00 87 mm[Hg] Unive rsity of pressure [facility] Heart rate 2019-03-11 13:52:00 80 /min [facility] [place] [facility] Body temperature 2019-03-11 13:52:00 36.83 Jena [facility] Respiratory rate 2019-03-11 13:52:00 18 /min [facility] [place] [facility] Body height 2019-03-11 13:52:00 167.6 cm [facility] [place] [facility] Body weight 2019-03-11 13:52:00 107.956 kg [facility] [place] [facility] BMI 2019-03-11 13:52:00 38.41 kg/m2 [facility] [place] [facility] Procedures Procedure Date / Time Performed Performing Clinician Sourc e BILATERAL VENOUS 2019-03-11 13:16:58 Francine Rob [facility] DUPLEX LOWER [facility] EXTREMITY BY VASCULAR LAB Plan of Care Planned Activity Planned Date Details Comments Source Future Scheduled 2022-04-24 HEPATITIS B VACCINES [facility] Test 10:23:39 (1 of 3 - 3-dose series) [code = HEPATITIS B VACCINES (1 of 3 - 3-dose series)] Future Scheduled 2022-04-24 COVID-19 VACCINE (#1) [facility] Test 10:23:39 [code = COVID-19 VACCINE (#1)] Future Scheduled 2022-04-24 Hepatitis C screening [facility] Test 10:23:39 (procedure) [code = 206851439] Future Scheduled 2022-04-24 Screening for [facility] Test 10:23:39 malignant neoplasm of cervix (procedure) [code = 103703301] Future Scheduled 2022-04-24 BREAST CANCER [facility] Test 10:23:39 SCREENING [code = BREAST CANCER SCREENING] Future Scheduled 2022-04-24 COLONOSCOPY SCREENING [facility] Test 10:23:39 [code = COLONOSCOPY SCREENING] Future Scheduled 2022-04-24 SHINGLES VACCINES (1 Met [facility] Test 10:23:39 of 2) [code = SHINGLES VACCINES (1 of 2)] Future Scheduled 2022-04-24 65+ [facility] Test 10:23:39 VACCINE (1 - PCV) [code = 65+ PNEUMOCOCCAL VACCINE (1 - PCV)] Future Scheduled 2022-04-24 INFLUENZA VACCINE [facility] Test 10:23:39 [code = INFLUENZA VACCINE] Encounters Start End Encounter Admission Attending Care Care Encounter Source Date/Time Date/Time Type Type Clinicians Facility Department ID 2022-04-17 Outpatient Cortes, Na STLMLC STLMLC [id number] Common 10:39:00 [facility] 2022-03-28 Outpatient Cortes, Na STLMLC STLMLC [id number] Common 09:22:00 [id number] [facility] 2022-02-09 Outpatient Cortes, Na STLMLC STLMLC [id number] Common 16:03:00 [id number] [facility] 2021-08-24 Outpatient Cortes, Na STLMLC STLMLC [id number] Common 14:21:01 [id number] [facility] 2021-08-24 Outpatient Cortes, Na STLMLC STLMLC [id number] Common 13:48:14 [id number] [facility] 2021-08-24 Outpatient Cortes, Na STLMLC STLMLC [id number] Common 11:39:12 [id number] [facility] 2021-08-24 Outpatient Cortes, Na STLMLC STLMLC [id number] Common 11:35:54 [id number] [facility] 2021-08-24 Outpatient Cortes, Na STLMLC STLMLC [id number] Common 11:35:34 [id number] [facility] 2021-08-24 Outpatient Cortes, Na STLMLC STLMLC [id number] Common 11:06:09 [id number] [facility] 2021-08-24 Outpatient Cortes, Na STLMLC STLMLC [id number] Common 10:59:13 [id number] [facility] 2022-04-24 2022-04-24 Travel [id number] Methodi 00:00:00 00:00:[id number] [id number] Ho spita [id number] 084.8 l .8 2022-02-10 2022-02-10 ambulatory STLMLC STLMLC [id number] Common 00:00:00 00:00:00 [facility] 2022-02-09 2022-02-09 ambulatory STLMLC STLMLC [id number] Common 00:00:00 00:00:00 [facility] 2021-08-19 2021-08-19 ambulatory STLMLC STLMLC [id number] Common 00:00:00 00:00:00 [facility] 2021-08-19 2021-08-19 ambulatory STLMLC STLMLC [id number] Common 00:00:00 00:00:00 [facility] 2021-07-06 2021-07-06 ambulatory STLMLC STLMLC [id number] Common 00:00:00 00:00:00 [facility] 2021-07-06 2021-07-06 ambulatory STLMLC STLMLC [id number] Common 00:00:00 00:00:00 [facility] 2021-06-07 2021-06-07 ambulatory STLMLC STLMLC [id number] Common 00:00:00 00:00:00 [facility] 2021-05-25 2021-05-25 Outpatient STLMLC STLMLC [id number] Common 00:00:00 00:00:00 [facility] 2021-04-18 2021-04-18 Outpatient STLMLC STLMLC [id number] Common 00:00:00 00:00:00 [facility] 2021-04-08 2021-04-08 Outpatient STLMLC STLMLC [id number] Common 00:00:00 00:00:00 [facility] 2021-03-25 2021-03-25 Outpatient STLMLC STLMLC [id number] Common 00:00:00 00:00:00 [facility] 2021-03-22 2021-03-22 Outpatient STLMLC STLMLC [id number] Common 00:00:00 00:00:00 [facility] 2021-02-09 2021-02-09 Outpatient STLMLC STLMLC [id number] Common 00:00:00 00:00:00 [facility] 2020-05-12 2020-05-12 Outpatient STLMLC STLMLC [id number] Common 00:00:00 00:00:00 [facility] 2020-03-10 2020-03-10 [id number] Common 08:04:00 08:04:[address] [facility] 2020-03-05 2020-03-05 [facility] [id number] Common 11:54:00 11:54:[address] [facility] 2020-03-05 2020-03-05 [facility] [id number] Common 10:00:00 10:00:[address] [facility] 2020-03-04 2020-03-04 [facility] [id number] Common 10:52:00 10:52:[address] [facility] 2020-02-10 2020-02-10 [facility] [id number] Common 09:17:00 09:17:[address] [facility] 2019-10-16 2019-10-16 [facility] [id number] Common 10:20:00 10:20:[address] [facility] [address] [facility] 2019-09-29 2019-09-29 [facility] [id number] Common 09:17:00 09:17:[address] [facility] 2019-09-10 2019-09-10 [facility] [id number] Common 11:08:00 11:08:[address] [facility] 2019-09-08 2019-09-08 [facility] [id number] Common 15:00:00 15:00:[address] [facility] 2019-08-07 2019-08-07 [facility] [id number] Common 08:40:00 08:40:[address] [facility] 2019-04-08 2019-04-08 Office [facility] [id number] Univers 10:52:18 11:09:02 Visit Francine Lizarraga [id number] [facility] [id number] [facility] [id number] [address] 2019-03-21 2019-03-21 [facility] [id number] Common 13:20:00 13:20:[address] [facility] 2019-03-11 2019-03-11 [facility] [id number] [facility] 09:52:26 23:59:00 Encounter Donovan, Kevin Cardio Vascular Zia 3 [id number] ity [facility] [id number] [facility] [id number] [facility] [address] 2019-03-11 2019-03-11 Office [facility] [id number] [facility] 08:38:53 09:13:26 Visit Francine Lizarraga [id number] linh huynh Bryan [id number] [facility] [id number] Ct dical nal [address] [facility] 2019-03-07 2019-03-07 [facility] [id number] Common 14:40:00 14:40:[address] [facility] 2018-10-04 2018-10-04 [facility] [id number] Common 15:48:00 15:48:[address] [facility] 2018-08-21 2018-08-21 [facility] [id number] Common 11:41:00 11:41:[address] [facility] 2018-08-19 2018-08-19 [facility] [id number] Common 08:30:00 08:30:[address] [facility] 2018-08-09 2018-08-09 [facility] [id number] Common 09:43:00 09:43:[address] [facility] 2018-07-25 2018-07-25 [facility] [id number] Common 15:45:00 15:45:[address] [facility] 2018-07-25 2018-07-25 [facility] [id number] Common 08:09:00 08:09:[address] [facility] 2018-01-24 2018-01-24 [facility] [id number] Common 15:00:00 15:00:[address] [facility] 2017-11-09 2017-11-09 [facility] [id number] Common 08:33:00 08:33:[address] [employer] [address] [facility] 2017-11-07 2017-11-07 Outpatient Mónica Salest [id number] Common 14:15:00 14:15:[email or web address] [facility] 2017-10-23 2017-10-23 Outpatient Mónica Goodman [id number] Common 10:45:00 10:45:[email or web address] [facility] Results This patient has no known results.
[2022-04-24 12:02] LABS: Absolute Lymphocytes (CBC) 2.8 K/uL (0.7-4.9); Hematocrit 46.4 % (36.0-45.0); Lymphocytes % 36.7 % (15.3-44.8); MCV 93.4 fL (80-100); MPV 10.2 fL (7.6-11.3); RBC Red Blood Cell Count 4.96 M/uL (3.86-4.86)
[2022-04-24 12:13] LABS: SARS-CoV-2 Antigen Rapid Res Negative (Negative)
--- NOTE | 2022-04-24 12:14 | RAD REPORT ---
EXAM DESCRIPTION: Beau Single View04/24/2022 12:00 pm CLINICAL HISTORY: Chest pain COMPARISON: 2014 FINDINGS: The lungs appear clear of acute infiltrate. The heart is normal size. Area scarring withi n the right lung Chronic elevation of right hemidiaphragm IMPRESSION: No acute abnormalities displayed
[2022-04-24 12:24] LABS: Albumin 3.8 g/dL (3.4-5.0); Bilirubin Direct 0.2 mg/dL (0-0.2); Bilirubin Total 0.5 mg/dL (0.2-1.0); Potassium 4.1 mmol/L (3.5-5.1); Protein, Total 7.7 g/dL (6.4-8.2); Troponin High Sensitivity 5.7 pg/mL (<58.9)
--- NOTE | 2022-04-24 15:21 | EDPHYS ---
Physician Documentation [facility] Name: Solange Raymundo Age: 67 yrs Sex: Female : 1955 Arrival Date: 04/24/2022 Time: 11:09 Bed 14 Private MD: Claudette Cortes ED Physician Shaun Jones HPI: 04/24 14:05 This 67 yrs old Female presents to ER via Ambulatory with complaints of Chest Pain, snw Chest Tightness. 14:05 The patient or guardian reports chest pain that is located primarily in the anterior snw chest wall, left. Onset: suddenly, this morning, and became persistent. The pain does not radiate. Associated signs and symptoms: The patient has no apparent associated signs or symptoms. The chest pain is described as a heaviness. Duration: The patient or guardian reports multiple episodes, Pt has noted some periods of chest heaviness over the past week, awoke this am to void and noted increased pressure to anterior chest. Pt has a hx of HTN and takes a sartan and a statin. Positive family hx . Severity of pain: At its worst the pain was moderate. as noted. Historical: - Allergies: 11:16 No Known Allergies; jl7 - Home Meds: 11:16 valsartan-hydrochlorothiazide 320-25 mg Oral tab 1 tab once daily [Active]; Crestor 10 jl7 mg Oral tab 1 tab once daily [Active]; - PMHx: 11:16 Hyperlipidemia; Hypertension; jl7 - Immunization history:: Client reports receiving the 2nd dose of the Covid vaccine. - Social history:: Smoking status: Patient denies any tobacco usage or history of. ROS: 14:09 Constitutional: Negative for fever, chills, and weight loss, Eyes: Negative for injury, snw pain, redness, and discharge, ENT: Negative for injury, pain, and discharge, Neck: Negative for injury, pain, and swelling. 14:09 Respiratory: Negative for shortness of breath, cough, wheezing, and pleuritic chest pain, Abdomen/GI: Negative for abdominal pain, nausea, vomiting, diarrhea, and constipation, Back: Negative for injury and pain, : Negative for injury, bleeding, discharge, and swelling, MS/Extremity: Negative for injury and deformity, Skin: Negative for injury, rash, and discoloration, Neuro: Negative for headache, weakness, numbness, tingling, and seizure, Psych: Negative for depression, anxiety, suicide ideation, homicidal ideation, and hallucinations. 14:09 Cardiovascular: Positive for chest pain, palpitations. Exam: 14:09 Constitutional: This is a well developed, well nourished patient who is awake, alert, snw and in no acute distress. Head/Face: Normocephalic, atraumatic. Eyes: Pupils equal round and reactive to light, extra-ocular motions intact. Lids and lashes normal. Conjunctiva and sclera are non-icteric and not injected. Cornea within normal limits. Periorbital areas with no swelling, redness, or edema. ENT: Nares patent. No nasal discharge, no septal abnormalities noted. Tympanic membranes are normal and external auditory canals are clear. Oropharynx with no redness, swelling, or masses, exudates, or evidence of obstruction, uvula midline. Mucous membranes moist. Neck: Trachea midline, no thyromegaly or masses palpated, and no cervical lymphadenopathy. Supple, full range of motion without nuchal rigidity, or vertebral point tenderness. No Meningismus. Chest/axilla: Normal chest wall appearance and motion. Nontender with no deformity. No lesions are appreciated. Cardiovascular: Regular rate and rhythm with a normal S1 and S2. No gallops, murmurs, or rubs. Normal PMI, no JVD. No pulse deficits. Respiratory: Lungs have equal breath sounds bilaterally, clear to auscultation and percussion. No rales, rhonchi or wheezes noted. No increased work of breathing, no retractions or nasal flaring. Abdomen/GI: Soft, non-tender, with normal bowel sounds. No distension or tympany. No guarding or rebound. No evidence of tenderness throughout. Back: No spinal tenderness. No costovertebral tenderness. Full range of motion. Skin: Warm, dry with normal turgor. Normal color with no rashes, no lesions, and no evidence of cellulitis. MS/ Extremity: Pulses equal, no cyanosis. Neurovascular intact. Full, normal range of motion. Neuro: Awake and alert, GCS 15, oriented to person, place, time, and situation. Cranial nerves II-XII grossly intact. Motor strength 5/5 in all extremities. Sensory grossly intact. Cerebellar exam normal. Normal gait. Psych: Awake, alert, with orientation to person, place and time. Behavior, mood, and affect are within normal limits. Vital Signs: 11:14 BP 178 / 93; Pulse 86; Resp 17; Temp 97.9; Pulse Ox 100% ; Weight 104.33 kg; Height 5 jl7 ft. 4 in. (162.56 cm); Pain 8/10; 12:52 BP 136 / 74; Pulse 80; Resp 20; Pulse Ox 100% ; db 14:45 BP 158 / 99; Pulse 98; Resp 18; Pulse Ox 98% ; db 16:08 BP 147 / 89; Pulse 83; Resp 18; Temp 97.4; Pulse Ox 99% on R/A; ph 11:14 Body Mass Index 39.48 (104.33 kg, 162.56 cm) jl7 MDM: 11:20 Patient medically screened. snw 11:24 Data reviewed: vital signs, nurses notes. Counseling: I had a detailed discussion with snw the patient and/or guardian regarding:. ED course: Sees Dr. Cortes. Fm hx heart disease. Pt with hx HTN, takes a sartan and statin. Pt took 650mg ASA prior to arrival. 14:47 HEART Score: History: Moderately Suspicious (1), ECG: Non specific repolarization snw disturbance / LBTB / PM (1), Age: > or = 65 years (2), Risk Factors: 1 or 2 risk factors (1), [Hypercholesterolemia] [Hypertension] Troponin: < or = 1 x Normal Limit (0), Total Score = 4. The patient was not given aspirin in the Emergency Department. Patient reports taking aspirin within the past 24 hours. Physician consultation: Adrian Boyce MD was called at 14:49. 14:54 Physician consultation: was contacted at 14:49, regarding admission, to the telemetry snw unit. 04/24 11:21 Order name: Basic Metabolic Panel; Complete Time: 12:24 snw 04/24 11:21 Order name: CBC with Diff; Complete Time: 12:19 snw 04/24 11:21 Order name: LFT's; Complete Time: 12:24 snw 04/24 11:21 Order name: Magnesium; Complete Time: 12:24 snw 04/24 11:21 Order name: NT PRO-BNP; Complete Time: 12:24 snw 04/24 11:21 Order name: Troponin HS; Complete Time: 12:24 snw 04/24 11:21 Order name: XRAY Chest (1 view); Complete Time: 12:19 w 04/24 11:21 Order name: EKG; Complete Time: 11:21 snw 04/24 11:21 Order name: Cardiac monitoring; Complete Time: 11:56 snw 04/24 11:21 Order name: EKG - Nurse/Tech; Complete Time: 12:10 w 04/24 11:21 Order name: IV Saline Lock; Complete Time: 11:56 w 04/24 11:21 Order name: Labs collected and sent; Complete Time: 11:56 snw 04/24 11:21 Order name: SARS RAPID; Complete Time: 12:19 w 04/24 14:59 Order name: Troponin High Sensitivity: q6h x 2; Complete Time: 15:38 snw 04/24 11:21 Order name: O2 Per Protocol; Complete Time: 11:56 w 04/24 11:21 Order name: O2 Sat Monitoring; Complete Time: 11:56 snw EC: Rate is 79 beats/min. Rhythm is irregular. QRS [place] is Normal. MO interval is normal. snw QRS interval is normal. QT interval is normal. No Q waves. Clinical impression: NSR w/ Non-specific ST/T Changes. Administered Medications: No medications were administered Disposition: 04/25 08:39 Co-signature as Attending Physician, Shaun Jones DO I agree with the assessment and ms3 plan of care. Disposition Summary: 04/24/22 15:20 Hospitalization Ordered Hospitalization Status: Observation snw Provider: Adrian Boyce snw Location: Telemetry/MedSurg (observation) snw Condition: Stable snw Problem: new snw Symptoms: are unchanged snw Bed/Room Type: Standard snw Room Assignment: 202(04/24/22 15:21) bd Diagnosis - Chest pain, unspecified snw Forms: - Medication Reconciliation Form snw - SBAR form snw Signatures: Dispatcher [employer] EDMS Payton Zarate Shelly, MOBILE HOME SET UP PERSON-C MOBILE HOME SET UP PERSON-Csnw Abby Brown RN RN Shaun Perez DO DO ms3 Corrections: (The following items were deleted from the chart) 04/24 15:21 15:20 snw bd
--- NOTE | 2022-04-24 15:21 | ER ---
Nurse's Notes [facility] Name: Solange Raymundo Age: 67 yrs Sex: Female : 1955 Arrival Date: 04/24/2022 Time: 11:09 Bed 14 Private MD: Claudette Cortes Diagnosis: Chest pain, unspecified Presentation: 04/24 11:14 Chief complaint: Patient states: Left sided CP since 0545, constant, non-radiating, jl7 reports dyspnea and palpitations, took 324 mg Aspirin x 2 this morning. Coronavirus screen: At this time, the client does not indicate any symptoms associated with coronavirus-19. Ebola Screen: No symptoms or risks identified at this time. Initial Sepsis Screen: Does the patient meet any 2 criteria? No. Patient's initial sepsis screen is negative. Does the patient have a suspected source of infection? No. Patient's initial sepsis screen is negative. Risk Assessment: Do you want to hurt yourself or someone else? Patient reports no desire to harm self or others. Onset of symptoms was April 24, 2022 at 05:45. 11:14 Method Of Arrival: Ambulatory [facility] 11:14 Acuity: DORIS 2 jl7 Triage Assessment: 11:16 General: Appears in no apparent distress. uncomfortable, Behavior is calm, cooperative, jl7 appropriate for age. Pain: Complains of pain in anterior aspect of left upper chest Pain does not radiate. Pain currently is 8 out of 10 on a pain scale. Quality of pain is described as pressure. Cardiovascular: Patient's skin is warm and dry. Rhythm is regular. Respiratory: Airway is patent Respiratory effort is even, unlabored, Respiratory pattern is regular, symmetrical. Historical: - Allergies: 11:16 No Known Allergies; jl7 - Home Meds: 11:16 valsartan-hydrochlorothiazide 320-25 mg Oral tab 1 tab once daily [Active]; Crestor 10 jl7 mg Oral tab 1 tab once daily [Active]; - PMHx: 11:16 Hyperlipidemia; Hypertension; jl7 - Immunization history:: Client reports receiving the 2nd dose of the Covid vaccine. - Social history:: Smoking status: Patient denies any tobacco usage or history of. Screenin:52 Abuse screen: Denies threats or abuse. Denies injuries from another. Nutritional db screening: No deficits noted. Tuberculosis screening: No symptoms or risk factors identified. Fall Risk None identified. Assessment: 12:47 Also complains of no other symptoms. Reassessment: Patient appears in no apparent db distress at this time. Patient and/or family updated on plan of care and expected duration. Pain level reassessed. Patient is alert, oriented x 3, equal unlabored respirations, skin warm/dry/pink. General: Appears in no apparent distress. comfortable, Behavior is calm, cooperative, quiet. Pain: Pain began suddenly. Neuro: No deficits noted. Cardiovascular: Reports chest pain, since started today Rhythm is regular Chest pain is described as Pain is 8 out of 10 on a pain scale. quality is heaviness. Respiratory: No deficits noted. GI: No deficits noted. : No deficits noted. EENT: No deficits noted. Derm: No deficits noted. Musculoskeletal: Reports pain in left knee. 13:42 Reassessment: No changes from previously documented assessment. Patient and/or family db updated on plan of care and expected duration. Pain level reassessed. Patient is alert, oriented x 3, equal unlabored respirations, skin warm/dry/pink. ambulatory to restroom. 16:20 Reassessment: Patient appears in no apparent distress at this time. Patient and/or ph family updated on plan of care and expected duration. Pain level reassessed. Patient is alert, oriented x 3, equal unlabored respirations, skin warm/dry/pink. Report called to Lloyd FERRARI. Vital Signs: 11:14 BP 178 / 93; Pulse 86; Resp 17; Temp 97.9; Pulse Ox 100% ; Weight 104.33 kg; Height 5 jl7 ft. 4 in. (162.56 cm); Pain 8/10; 12:52 BP 136 / 74; Pulse 80; Resp 20; Pulse Ox 100% ; db 14:45 BP 158 / 99; Pulse 98; Resp 18; Pulse Ox 98% ; db 16:08 BP 147 / 89; Pulse 83; Resp 18; Temp 97.4; Pulse Ox 99% on R/A; ph 11:14 Body Mass Index 39.48 (104.33 kg, 162.56 cm) jl7 Vitals: 12:52 Cardiac Rhythm Assessment Regular Sinus rhythm. db ED Course: 11:09 Patient arrived in ED. am2 11:10 Claudette Cortes MD is Private Physician. am2 11:16 Savannah Thurman [facility]NP-C [facility]. snw 11:16 Shaun Jones DO is Attending Physician. snw 11:16 Triage completed. jl7 11:16 Arm band placed on right wrist. jl7 11:50 Inserted saline lock: 20 gauge in right antecubital area, using aseptic technique. db Blood collected. Patient maintains SpO2 saturation greater than 95% on room air. 11:56 Nohemi Chambers, RN is Primary Nurse. db 12:01 XRAY Chest (1 view) In Process Unspecified. EDMS 12:52 Patient has correct armband on for positive identification. Bed in low position. Side db rails up X 1. media monitor on. Pulse ox on. 15:19 Adrian Boyce MD is Hospitalizing Provider. snw Administered Medications: No medications were administered Medication: 12:52 VIS not applicable for this client. db Outcome: 15:20 Decision to Hospitalize by Provider. snw 16:51 Patient left the ED. db Signatures: Dispatcher [employer] EDMS Savannah Thurman FNP-C COMPUTER OPERATIONS MANAGER-Csnw Aleida Santos, RN RN Abby Brown RN RN jl7 Zabrina Erazo am2 Nohemi Chambers, RN RN db
[2022-04-24] MEDS ORDERED: ACETAMINOPHEN 500 MG TAB PO PRN (15:25)
--- NOTE | 2022-04-24 15:35 | P.HP ---
Certification for Inpatient Patient admitted to: Observation With expected LOS: <2 Midnights Patient will require the following post-hospital care: None Practitioner: I am a practitioner with admitting privileges, knowledge of patient current condition, hospital course, and medical plan of care. Services: Services provided to patient in accordance with Admission requirements found in Title 42 Section 412.3 of the Code of Federal Regulations Patient History Date of Service: 04/24/22 Primary Care Provider: Dr. Cortes Reason for admission: Chest Pain History of Present Illness: Ms. Solange Raymundo is a pleasant 67 year old female who has a past medical history of hypertension and dyslipidemia who presents to the [facility] Emergency Department for chest pain. She reports that, around 05:45 AM this morning, she awoke from sleep with mid- sternal chest pain. She describes the pain as tightness and non-radiating. She grades the pain an 8/10 in severity. She states that it has been associated with palpitations and shortness of breath. She stated that this pain lasted for several hours. She denies any obvious inciting or alleviating factors. She tried taking 650 mg of aspirin prior to arrival, without alleviation of her symptoms. On review of systems, she denies any fevers, chills, headaches, dizziness, syncope, weakness, wheezing, cough, abdominal pain, nausea/vomiting, diarrhea, constipation, hematochezia, melena, dysuria, hematuria, myalgia, or any other symptoms. She presented to the Emergency Department for further evaluation. Upon presentation, her vital signs were stable. Her laboratory studies were fairly unremarkable. EKG revealed normal sinus rhythm, without STEMI criteria. Chest x-ray revealed, "no acute abnormalities displayed." She was admitted to the General Internal Medicine service for further evaluation. Allergies No Known Allergies Allergy (Unverified 04/24/22 15:35) Home medications list reviewed: Yes Home Medications: Rosuvastatin [Crestor] 10 mg PO BEDTIME 04/24/22 Valsartan 320 mg PO DAILY 04/24/22 - Past Medical/Surgical History -: Hypertension -: Dyslipidemia -: Spinal Fusion -: Knee Surgery Psychosocial/ Personal History: Family History: Multiple Family Members with Coronary Artery Disease - Family History Mother -: Heart disease Notes: Alzheimer's Dementia - Social History Smoking Status: Never smoker Alcohol use: No CD- Drugs: No Review of Systems 10-point ROS is otherwise unremarkable General: Unremarkable Eyes: Unremarkable ENT: Unremarkable Respiratory: Shortness of Breath Cardiovascular: Chest Pain, Palpitations Gastrointestinal: Unremarkable Genitourinary: Unremarkable Musculoskeletal: Unremarkable Integumentary: Unremarkable Neurological: Unremarkable Lymphatics: Unremarkable Physical Examination - Vital Signs Temperature: 97.9 F Blood Pressure: 158/99 Pulse: 86 Respirations: 17 Pulse Ox (%): 100 (room air) - Physical Exam General: Alert, In no apparent distress, Oriented x3 HEENT: Atraumatic, PERRLA, Mucous membr. moist/pink, EOMI, Sclerae nonicteric Neck: Supple, JVD not distended Respiratory: Clear to auscultation bilaterally, Normal air movement Cardiovascular: No edema, Regular rate/rhythm, Normal S1 S2, No gallops, No rubs, No murmurs Capillary refill: <2 Seconds Gastrointestinal: Normal bowel sounds, Soft and benign, Non-distended, No tenderness, No rebound, No guarding Musculoskeletal: No clubbing Integumentary: No rashes Neurological: Normal speech, Cranial nerves 3-12 intact, Normal affect - Studies Laboratory Data (last 24 hrs) 04/24/22 11:50: WBC 7.60, Hgb 15.1 H, Hct 46.4 H, Plt Count 201 04/24/22 11:50: Sodium 138, Potassium 4.1, BUN 17, Creatinine 0.97, Glucose 118 H, Magnesium 2.0, Total Bilirubin 0.5, AST 22, ALT 31, Alkaline Phosphatase 99 Assessment and Plan - Plan # Chest Pain with Strong Family History of Coronary Artery Disease # Obesity - BMI 39.5 kg/m2 # Hypertensive Urgency # Dyslipidemia Her HEART score is 5 (moderately suspicious history = 1, age>=65 = 2,>3= risk factors = 2) - Evaluation thus far: - EKG: without STEMI criteria, trend - Serial troponin: 5.7 -> 5.8 - Ordered transthoracic echocardiogram - Chest x-ray = "No acute abnormalities displayed" - Ordered d-dimer - Management plan: - Consult Cardiology - recommendations appreciated - S/P aspirin 650 mg PO x 1 at home - Start daily baby aspirin - Continue home valsartan, rosuvastatin - If cardiac ischemia confirmed, plan to start beta-justin as tolerated # Left Knee Osteoarthritis - Continue home PRN acetaminophen Adrian Boyce M.D. Discharge Plan: Home Plan to discharge in: 24 Hours - Advance Directives Does patient have a Living Will: No Does patient have a Durable POA for Healthcare: No - Code Status/Comfort Care Code Status Assessed: Yes Code Status: Full Code
[2022-04-24 17:20] VITALS: BMI 39.4
[2022-04-24] MEDS: ENOXAPARIN 40 MG/0.4 ML SQ SCH (17:47)
[2022-04-24] MEDS ORDERED: PNEUMOCOCCAL VACCINE 0.5 ML IMVAC ONE (18:00)
--- NOTE | 2022-04-24 18:27 | RAD REPORT ---
EXAM DESCRIPTION: CT - Chest For Pe Angio - 04/24/2022 6:09 pm CLINICAL HISTORY: rule out PE COMPARISON: Chest Single View dated 04/24/2022 TECHNIQUE: Dynamically enhanced 3 mm thick images of the chest were obtained during administration o f approximately 150mL Isovue 370 IV contrast. Coronal and oblique MIP reconstruction images were gene rated and reviewed. Exam utilizes a protocol to evaluate the pulmonary arterial tree. All CT scans are performed using dose optimization technique as appropriate and may include automated exposure control or mA/KV adjustment according to patient size. FINDINGS: No pulmonary emboli are identified. The aorta as imaged shows no acute or suspicious finding. No pericardial thickening or effusion. No infiltrate or mass in the lung parenchyma. No pleural effusion or pleural thickening. No mediastinal or hilar suspicious masses. No chest wall masses or abnormal axillary lymphadenopathy. Bilateral retropectoral breast implants are in place. Fibrous capsule calcifications are present. Rob th implants but probably ruptured. Any rupture is contained by the outer fibrous capsule. IMPRESSION: No pulmonary emboli identified. No other significant or suspicious findings.
[2022-04-24] MEDS ORDERED: ROSUVASTATIN 10 MG TAB PO SCH (21:00)
[2022-04-24] MEDS ORDERED: ALPRAZOLAM 0.25 MG TABLET PO ONE (23:07)
[2022-04-25 04:48] VITALS: O2SAT 97
[2022-04-25 06:16] LABS: Hematocrit 40.4 % (36.0-45.0); Lymphocytes % 24.2 % (15.3-44.8); MCV 92.7 fL (80-100); MPV 10.4 fL (7.6-11.3); RBC Red Blood Cell Count 4.35 M/uL (3.86-4.86)
[2022-04-25 06:35] LABS: Magnesium 1.9 mg/dL (1.8-2.4); Phosphorus 3.5 mg/dL (2.5-4.9); Potassium 4.1 mmol/L (3.5-5.1)
[2022-04-25 07:55] VITALS: BP 150/96; TEMP 97.1
--- NOTE | 2022-04-25 08:42 | P.DS ---
Admission Date: 04/24/22 Discharge Date: 04/25/22 Primary Care Provider: Dr. Cortes Disposition: ROUTINE DISCHARGE Discharge Condition: GOOD Reason for Admission: Chest Pain Consultations: 1. Cardiology Hospital Course: DIAGNOSES: # Chest Pain with Strong Family History of Coronary Artery Disease # Obesity - BMI 39.5 kg/m2 # Hypertensive Urgency # Dyslipidemia # Left Knee Osteoarthritis HOSPITAL COURSE: Ms. Solange Raymundo is a pleasant 67 year old female who has a past medical history of hypertension and dyslipidemia who was admitted to the [facility] on 04/24/2022 for chest pain. She was admitted to the Medicine service. EKG revealed normal sinus rhythm, without STEMI criteria. Her troponin trend was 5.7 -> 5.8 -> 8.0. Her d-dimer was slightly elevated to 526. Chest x-ray revealed, "no acute abnormalities displayed." CT chest angiogram revealed, "No pulmonary emboli identified. No other significant or suspicious findings." Cardiology was consulted and she was evaluated by Dr. Santos. A transthoracic echocardiogram was obtained, and although the formal read is currently pending, Dr. Santos reviewed the images and stated that her echocardiogram was within normal limits. He has cleared her for discharge with outpatient follow-up. He recommended lowering her valsartan dose to 160 mg and starting her on metoprolol succinate 25 mg. On 04/25/2022, she was seen on morning rounds and deemed medically stable for discharge. She was discharged with instructions to schedule follow-up appointments with her PCP (Dr. Cortes) in 3-5 days and with her Threat Analyst (Dr. Santos) in 5-7 days. She was provided prescriptions for valsartan and metoprolol. She and her family members were given the opportunity to ask questions and reported no further questions. Furthermore, all questions were answered to the best of my ability. A copy of this discharge summary will be sent to the above providers to facilitate continuity of care. Today, I personally spent 20 minutes on her case, of which greater than 50% of the time was spent in patient education, counseling, and coordination of care as described above. - Physical Exam General: Alert, In no apparent distress, Oriented x3 HEENT: Atraumatic, PERRLA, Mucous membr. moist/pink, EOMI, Sclerae nonicteric Neck: Supple, JVD not distended Respiratory: Clear to auscultation bilaterally, Normal air movement Cardiovascular: No edema, Regular rate/rhythm, Normal S1 S2, No gallops, No rubs, No murmurs Capillary refill: <2 Seconds Gastrointestinal: Normal bowel sounds, Soft and benign, Non-distended, No tenderness, No rebound, No guarding Musculoskeletal: No clubbing Integumentary: No rashes Neurological: Normal speech, Cranial nerves 3-12 intact, Normal affect Vital Signs/Physical Exam: Temp Pulse Resp BP Pulse Ox 97.1 F 92 H 18 150/96 H 96 04/25/22 07:52 04/25/22 07:52 04/25/22 07:52 04/25/22 07:52 04/25/22 07:52 Laboratory Data at Discharge: WBC 8.40 K/uL (4.3-10.9) 04/25/22 05:43 Hgb 13.5 g/dL (12.0-15.0) D 04/25/22 05:43 Hct 40.4 % (36.0-45.0) 04/25/22 05:43 Plt Count 166 K/uL (152-406) 04/25/22 05:43 Sodium 138 mmol/L (136-145) 04/25/22 05:43 Potassium 4.1 mmol/L (3.5-5.1) 04/25/22 05:43 BUN 16 mg/dL (7-18) 04/25/22 05:43 Creatinine 0.83 mg/dL (0.55-1.3) 04/25/22 05:43 Glucose 101 mg/dL (74-106) 04/25/22 05:43 Phosphorus 3.5 mg/dL (2.5-4.9) 04/25/22 05:43 Magnesium 1.9 mg/dL (1.8-2.4) 04/25/22 05:43 Total Bilirubin 0.5 mg/dL (0.2-1.0) 04/24/22 11:50 AST 22 U/L (15-37) 04/24/22 11:50 ALT 31 U/L (12-78) 04/24/22 11:50 Alkaline Phosphatase 99 U/L (45-117) 04/24/22 11:50 Home Medications: Rosuvastatin [Crestor*] 10 mg PO BEDTIME 04/24/22 Aspirin [Adult Low Dose Aspirin EC] 81 mg PO DAILY #30 04/25/22 Metoprolol Succinate 25 mg PO DAILY #30 tab 04/25/22 Valsartan [Diovan*] 160 mg PO DAILY #30 tab 04/25/22 New Medications: Aspirin [Adult Low Dose Aspirin EC] 81 mg PO DAILY #30 Valsartan [Diovan*] 160 mg PO DAILY #30 tab Metoprolol Succinate 25 mg PO DAILY #30 tab Physician Discharge Instructions: 1. Please schedule a follow-up appointment with your PCP (Dr. Cortes) in 3-5 days 2. Please schedule a follow-up appointment with Cardiology (Dr. Santos) in 5-7 days Diet: Regular Activity: Ad beatriz Followup: Claudette Cortes DO [Primary Care Provider] - Lucian Santos MD [ACTIVE - CAN ADMIT] - Time spent managing pt's care (in minutes): 20
[2022-04-25] MEDS: ENOXAPARIN 40 MG/0.4 ML SQ SCH (08:48)
--- NOTE | 2022-04-25 08:57 | CON ---
Date of Consultation: 04/25/2022 Reason For Consultation: Chest pain and palpitation. History Of Present Illness: Ms. Raymundo is 67. Has a history of hypertension, dyslipidemia, very stron g family history of heart disease in most of her family on her father's side. Has had for ID i n the 50s. She does not smoke. Does not have diabetes. She has gained a lot of weight recently aft er a spinal fusion surgery and taking care of her mom who recently. Came in with episode of palpitations and chest pressure that lasted almost all day without any nausea, vomiting, diaphore sis, PND, orthopnea, pedal edema, syncope. Denies any nausea, vomiting, diaphoresis. Denied any fev er or chills. Past Medical History: As stated above. Allergies: NONE. Review of Systems: Negative. Social History: Negative. Family History: Positive for heart disease. Medications: At home include valsartan HCT and Crestor usually prescribed by Dr. Beyer. Physical Examination: General: Very pleasant. Vital Signs: Stable, afebrile, in sinus rhythm when I saw her. HEENT: Negative. Neck: Supple with no bruit. Chest: Clear. Cardiac: Revealed a regular rhythm and rate. No murmurs, gallops, or rubs. Abdomen: Benign. Extremities: Revealed no clubbing, cyanosis, or edema. Skin: Dry and intact. Neurologic: She was nonfocal. Diagnostic Data: All normal except for D-dimer of [address] angiogram for pulmonary emb olus. Her chest x-ray was normal. Her laboratory evaluation was normal. Troponin was negative. BN P is negative. EKG is negative. Impression And Plan: Chest pressure, probably secondary to palpation, maybe sinus tachycardia or sup raventricular tachycardia. Echocardiogram is pending. I think she needs to have an outpatient stres s test and MPI because of her strong family history and multiple risk factors including hypertension, dyslipidemia, and obesity. Can do that as an outpatient. If her echocardiogram is normal, we may s end her home. I will suggest a low-dose metoprolol and may be cut down her valsartan HCT by half. I will discuss the case further with Dr. Boyce. ESME/CANDIS Voice ID: [id number] Report ID: [id number]
[2022-04-25] MEDS ORDERED: ASPIRIN 81 MG CHEWABLE TABLET PO SCH (09:00)
[2022-04-25] MEDS ORDERED: HOME MED 1 EA UNK (Valsartan [Valsartan] 320 MG Tablet) PO SCH (09:00)
[2022-04-25] MEDS ORDERED: VALSARTAN 160 MG TAB PO SCH (09:00)
--- NOTE | 2022-04-25 14:38 | ECHO ---
HEIGHT: 5 ft 4 in WEIGHT: 230 lb 0.132 oz DATE OF STUDY: 04/25/[address]: Adrian Boyce MD 2-DIMENSIONAL: YES M.MODE: YES DOPPLER: YES COLOR FLOW: YES TDS: PORTABLE: YES DEFINITY: BUBBLE STUDY: DIAGNOSIS: CHEST PAIN CARDIAC HISTORY: CATHERIZATION: NO SURGERY: NO PROSTHETIC VALVE: NO PACEMAKER: NO MEASUREMENTS (cm) DIASTOLIC (NORMALS) SYSTOLIC (NORMALS) IVSd 1.0 (0.6-1.2) LA Diam 2.8 (1.9-4.0) LVEF 58% LVIDd 3.8 (3.5-5.7) LVIDs 2.7 (2.0-3.5) %FS 30% LVPWd 1.2 (0.6-1.2) Ao Diam 2.2 (2.0-3.7) 2 DIMENSIONAL ASSESSMENT: RIGHT ATRIUM: NORMAL LEFT ATRIUM: NORMAL RIGHT VENTRICLE: NORMAL LEFT VENTRICLE: NORMAL TRICUSPID VALVE: MILD TRICUSPID REGURGITATION MITRAL VALVE: NORMAL PULMONIC VALVE: NORMAL AORTIC VALVE: NORMAL PERICARDIAL EFFUSION: NONE AORTIC ROOT: NORMAL LEFT VENTRICULAR WALL MOTION: NORMAL DOPPLER/COLOR FLOW: MILD TRICUSPID REGURGITATION COMMENTS: NORMAL LEFT VENTRICULAR EJECTION FRACTION 55-60%. POOR WINDOWS. MILD TRICUSPID REGURGITATION. PULMONARY HYPERTENSION IS PRESENT. TECHNOLOGIST: NORMA HENNING
--- NOTE | 2022-04-25 17:27 | EKG ---
Test Date: 2022-04-24 Test Time: 22:44:28 Community Midwife: RT MEASUREMENT RESULTS: Intervals: Rate: 83 WI: 162 QRSD: 80 QT: 370 QTc: 434 [place]: P: 55 WI: 162 QRS: 17 T: 40 INTERPRETIVE STATEMENTS: Normal sinus rhythm Normal ECG Compared to ECG 05/19/2011 05:11:03 No significant changes Electronically Signed On 04-25-22 17:26:21 CDT by Clinton Munoz
--- NOTE | 2022-04-25 17:28 | EKG ---
Test Date: 2022-04-24 Test Time: 11:19:49 Cad Technician: MAHAMED MEASUREMENT RESULTS: Intervals: Rate: 79 NM: 166 QRSD: 74 QT: 362 QTc: 415 [place]: P: 59 NM: 166 QRS: 45 T: 40 INTERPRETIVE STATEMENTS: Sinus rhythm with occasional premature ventricular complexes Otherwise normal ECG Compared to ECG 05/19/2011 05:11:03 Ventricular premature complex(es) now present Electronically Signed On 04-25-22 17:26:51 CDT by Clinton Munoz
== END 2022-04-25 10:21 | disposition home or self-care (01) ==
LOC: ER 10:59 → ERHOLD 14:51 → 2ND 16:33
PROVIDERS: ADMIT Internal Medicine; ATTEND Internal Medicine
DX: R07.9 Chest pain, unspecified (principal); E66.9 Obesity, unspecified; Z68.39 Body mass index [BMI] 39.0-39.9, adult; I16.0 Hypertensive urgency; E78.5 Hyperlipidemia, unspecified; M17.12 Unilateral primary osteoarthritis, left knee; Z82.49 Family history of ischemic heart disease and other diseases of the circulatory system; Z20.822 Contact with and (suspected) exposure to COVID-19
CPT/HCPCS: 93005 ×2; 93306; 85025 ×2; 80048 ×2; 36415; 83735 ×2; 84100; 82947; 85379; 80076; 84484 ×3; 83880; 71275; 71045; 90471; 90732; 99285; 87811; Q9967; J1650 ×2; G0378 ×3

== ENCOUNTER 2022-11-25 23:52 | Emergency (ER) | payer OTHER ==
--- OUTSIDE RECORDS SUMMARY | 2022-11-26 00:02 | XMS REPORT | Continuity of Care Document ---
:1955 Author Organization [facility] t Address [address] [place] [address] [address] [place] [address] Care Team Providers Name Role Phone Asked, No Pcp Primary Care Physician Unavailable Kathryn Morrow Attending Clinician Unavailable Claudette Cortes Attending Clinician Unavailable CONCHA JACKSON Attending Clinician Unavailable CONCHA JACKSON Attending Clinician Unavailable TOMMY JESUS Attending Clinician Unavailable MAI DODGE Attending Clinician Unavailable Lesley Johnson MD Attending Clinician Doctor Unassigned, Sundance Attending Clinician Unavailable LESLEY JOHNSON Attending Clinician Unavailable , [facility] Attending Clinician Unavailable Tommy Jesus MD Attending Clinician Trae Sweeney MD Attending Clinician Mai Dodge PA-C Attending Clinician Francine Rob MD Attending Clinician [facility] Cardio Vascular Attending Clinician Unavailable LESLEY JOHNSON Admitting Clinician Unavailable Lesley Johnson MD Admitting Clinician MAI DODGE Admitting Clinician Unavailable Payers Payer Name Policy Type Policy Number Effective Date Expiration Date Marni ARRINGTON MANAGED [id number] 2022 MEDICARE 00:00:00 PPO-JUSTYN MEDICARE PART A [id number] 2021 \T\ B 00:00:00 AETNA 53 [id number] [facility] AETNA 53 [id number] 2017 [facility] Problems Condition Condition Condition Status Onset Resolution Last Treating Co mments Source Name Details Category Date Date Treatment Clinician Date Post-menop Post-menop Disease Active Overview : Univers ausal ausal 08-07 Formattin ity of bleeding bleeding 00:00: g of this Renato as 00 note Medical might be Branch different from the original. 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 00:00: [place] [facility] Spasm of Spasm of Disease Active 2021-07 Unive rs back back 2-30 ity of muscles muscles 00:00: [place] [facility] Encounter Encounter Disease Active 2021-07 Uni vers for other for other 2-30 ity of preprocedu prepro[place] Medical examinatio examinatio Br anch n n Gastroesop Gastroesop Disease Active 2021-07 U nivers hageal hageal 2-30 ity of reflux reflux 00:00: [place] disease disease 00 Medical Branch History of History of Disease Active 2021-07 U nivers breast breast 2-30 ity of implant implant 00:00: [place] [facility] History of History of Disease Active 2021-07 U nivers colonic colonic 2-30 ity of polyps polyps 00:00: [place] [facility] Hyperglyce Hyperglyce Disease Active 2021-07 U nivers denia denia 2-30 ity of 00:00: [place] [facility] Hyperlipid Hyperlipid Disease Active 2021-07 U nivers emia emia 2-30 ity of 00:00: [place] [facility] Hypertensi Hypertensi Disease Active 2021-07 U nivers on on 2-30 ity of 00:00: [place] [facility] Insomnia Insomnia Disease Active 2021-07 Unive rs 2-30 ity of 00:00: [place] [facility] Renal Renal Disease Active 2021-07 Univers insufficie insufficie 2-30 it y of ncy ncy 00:00: [place] syndrome syndrome 00 Medica l Branch 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 2-30 ity of and and 00:00: [place] depressive depressive 00 Me dical disorder disorder Branch 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 Chronic Chronic Problem Common back pain back pain Spir it - [facility] Obesity Obesity Problem Common [facility] Allergic Allergic Problem Commo n rhinitis rhinitis, Spiri t [facility] y, Medical unspecifie Center d trigger Back pain Back pain Problem Com mon [facility] Pre-proced Pre-operat Problem C ommon ure celestine exam Spirit evaluation - [facility] check [facility] Allergic Seasonal Problem Commo n rhinitis allergic Spirit caused by rhinitis - [facility] pollen due to [facility] Primary Problem Commo n osteoarthr Spirit itis - [facility] involving [facility] Vitamin D Vitamin D Problem Com mon deficiency deficiency Sp [facility] Morbid Obesity, Problem Common obesity morbid, Spirit BMI - [facility] 40.0-49.9 [facility] No known No known Disease Unive rs active active ity of problems problems [facility] [place] Seasonal Seasonal Problem Commo n allergic allergic Spirit rhinitis rhinitis, - [facility] unspecifie [facility] History of History of Problem C ommon breast breast Spirit implant implant - [facility] Allergies, Adverse Reactions, Alerts Allergy Allergy Status Severity Reaction(s) Onset Inactive Treating Comm ents Source Name Type Date Date Clinician No Known DA Active U 2017-07 [facility] All[facility]ie 0-24 [place] [facility] 00:[facility]: [facility] dic [facility] No Known DA Active U 2017-07 [facility] Allergie 0-23 [place] 00:[facility] 00 dic [facility]ospita l No Known DA Active U [facility] Allergie 9- [place] [facility] 00:00[facility] 00 dic [facility]ospita l No Known DA Active U [facility] Allergie 02-20 [facility] 00:00: Orthope 00 dic Hospita l NO KNOWN Drug Active Univers ALLERGIE Class ity of S [facility] [place] Social History Social Habit Start Date Stop Date Quantity Comments Source History of tobacco Passive smoker Un iversity of use [facility] [place] Gender identity [facility] Sexual orientation Method ist Hospital Exposure to 2022-11-07 2022-11-17 Not sure [facility]-CoV-2 (event) 00:00:00 14:47:00 [facility] [place] History of Social 2022-07-17 2022-07-[address] function 00:00:00 00:00:00 Hospital Alcohol intake 2022-07-17 2022-07-17 Current non-drinker M ethodist 00:00:00 00:00:00 of alcohol Hospital (finding) Tobacco use and 2022-06-06 2022-06-06 Smokeless tobacco Un iversity of exposure 00:00:00 00:00:00 non-user [facility] [place] Alcohol Comment 2022-06-06 2022-06-06 occasionally Univers ity of 00:00:00 00:00:00 [facility] [place] Sex Ass[birth year] At [birth year] [facility] 00:00:00 00:00:00 Hospital Smoking Status Start Date Stop Date Source Never smoked tobacco [facility] Tobacco [facility] Medications Ordered Filled Start Stop Current Ordering Indication Dosage Frequency Signature Comments Components Source Medication Medication Date Date Medication? Clinician (SIG) Name Name vibegron Yes [id number] 75mg Take 75 mg Univers (GEMTESA) 4-21 by mouth ity of 75 mg Tab 00:00: in the [place] 00 morning. Medical Branch estradioL 2022-0 Yes [id number] Apply 1g Univers (ESTRACE) 4-21 vaginally ity o f 0.01 % (0.1 00:00: at bedtime [place] mg/gram) 00 every Medical vaginal night for Branch cream 2 weeks and then apply 1g vaginally at bedtime 2 times per week vibegron 0 Yes [id number] 75mg Take 75 mg Univers (GEMTESA) 4-21 by mouth ity of 75 mg Tab 00:00: in the [place] 00 morning. Medical Branch estradioL 0 Yes [id number] Apply 1g Univers (ESTRACE) 4-21 vaginally ity o f 0.01 % (0.1 00:00: at bedtime [place] mg/gram) 00 every Medical vaginal night for Branch cream 2 weeks and then apply 1g vaginally at bedtime 2 times per week vibegron 0 Yes [id number] 75mg Take 75 mg Univers (GEMTESA) 2-24 by mouth ity of 75 mg Tab 00:00: in the [place] 00 morning. Medical Branch vibegron 0 Yes [id number] 75mg Take 75 mg Univers (GEMTESA) 2-24 by mouth ity of 75 mg Tab 00:00: in the [place] 00 morning. Medical Branch vibegron 0 Yes [id number] 75mg Take 75 mg Univers (GEMTESA) 2-24 by mouth ity of 75 mg Tab 00:00: in the [place] 00 morning. Medical Branch vibegron 0 Yes [id number] 75mg Take 75 mg Univers (GEMTESA) 2-24 by mouth ity of 75 mg Tab 00:00: in the [place] 00 morning. Medical Branch vibegron 0 Yes [id number] 75mg Take 75 mg Univers (GEMTESA) 2-24 by mouth ity of 75 mg Tab 00:00: in the [place] 00 morning. Medical Branch vibegron 0 Yes [id number] 75mg Take 75 mg Univers (GEMTESA) 2-24 by mouth ity of 75 mg Tab 00:00: in the [place] 00 morning. Medical Branch cetirizine Yes Take by Univ ers HCl (ZYRTEC 2-10 mouth ity of ORAL) 13:37: daily. [place] [facility] rosuvastati Yes 10mg Take 10 mg Univers n calcium 2-10 by mouth ity of (CRESTOR 13:37: at [place] ORAL) 04 bedtime. Medical Branch metoprolol Yes 50mg Take 50 mg U nivers succinate 2-10 by mouth ity of XL 50 mg 24 13:37: [place] tablet 04 morning. Medica l Branch hydroCHLORO Yes 1{tbl} Take 1 Un becca thiazide 2-10 tablet by ity of 12.5 mg 13:37: mouth [place] tablet 04 every Medical morning. Branch fluticasone Yes as needed. Univers propionate 2-10 ity of 50 13:37: [place] [facility] Medical on nasal Branch spray cetirizine Yes 10mg Take 10 mg U nivers 10 mg 2-10 by mouth ity of tablet 13:37: in the [place] 04 morning. Medical Branch cetirizine Yes Take by [facility] [place] [facility] ers HCl (ZYRTEC 2-10 mouth ity of ORAL) 13:37: daily. [place] [facility] rosuvastati Yes 10mg Take 10 mg Univers n calcium 2-10 by mouth ity of (CRESTOR 13:37: at [place] ORAL) 04 bedtime. Medical Branch metoprolol Yes 50mg Take 50 mg U nivers succinate 2-10 by mouth ity of XL 50 mg 24 13:37: [place] hr tablet morning. Medica l Branch hydroCHLORO Yes 1{tbl} Take 1 Un becca thiazide 2-10 tablet by ity of 12.5 mg 13:37: mouth [place] tablet 04 every Medical morning. Branch fluticasone 0 Yes as needed. Univers propionate 2-10 ity of 50 13:37: [place] mcg/actuati Medical on nasal Branch spray cetirizine Yes 10mg Take 10 mg U nivers 10 mg 2-10 by mouth ity of tablet 13:37: in the [place] 04 morning. Medical Branch cetirizine Yes Take by Univ ers HCl (ZYRTEC 2-10 mouth ity of ORAL) 13:37: daily. [place] [facility] rosuvastati Yes 10mg Take 10 mg Univers n calcium 2-10 by mouth ity of (CRESTOR 13:37: at [place] ORAL) 04 bedtime. Medical Branch metoprolol Yes 50mg Take 50 mg U nivers succinate 2-10 by mouth ity of XL 50 mg 24 13:37: [place] tablet 04 morning. Medica l Branch hydroCHLORO Yes 1{tbl} Take 1 Un becca thiazide 2-10 tablet by ity of 12.5 mg 13:37: mouth [place] tablet 04 every Medical morning. Branch fluticasone Yes as needed. Univers propionate 2-10 ity of 50 13:37: [place] mcg/actuati Medical on nasal Branch spray cetirizine Yes 10mg Take 10 mg U nivers 10 mg 2-10 by mouth ity of tablet 13:37: in the [place] 04 morning. Medical Branch cetirizine Yes Take by Univ ers HCl (ZYRTEC 2-10 mouth ity of ORAL) 13:37: daily. Medical Branch rosuvastati Yes 10mg Take 10 mg Univers n calcium 2-10 by mouth ity of (CRESTOR 13:37: at [place] ORAL) 04 bedtime. Medical Branch metoprolol Yes 50mg Take 50 mg U nivers succinate 2-10 by mouth ity of XL 50 mg 24 13:37: [place] tablet morning. Medica l Branch hydroCHLORO Yes 1{tbl} Take 1 Un becca thiazide 2-10 tablet by ity of 12.5 mg 13:37: mouth [place] tablet 04 every Medical morning. Branch fluticasone 0 Yes as needed. Univers propionate 2-10 ity of 50 13:37: [place] mcg/actuati Medical on nasal Branch spray cetirizine Yes 10mg Take 10 mg U nivers 10 mg 2-10 by mouth ity of tablet 13:37: in the [place] 04 morning. Medical Branch cetirizine Yes Take by Univ ers HCl (ZYRTEC 2-10 mouth ity of ORAL) 13:37: daily. [place] [facility] rosuvastati Yes 10mg Take 10 mg Univers n calcium 2-10 by mouth ity of (CRESTOR 13:37: at [place] ORAL) 04 bedtime. Medical Branch metoprolol Yes 50mg Take 50 mg U nivers succinate 2-10 by mouth ity of XL 50 mg 24 13:37: [place] tablet 04 morning. Medica l Branch hydroCHLORO Yes 1{tbl} Take 1 Un becca thiazide 2-10 tablet by ity of 12.5 mg 13:37: mouth [place] tablet 04 every Medical morning. Branch fluticasone Yes as needed. Univers propionate 2-10 ity of 50 13:37: [place] mcg/actuati Medical on nasal Branch spray cetirizine Yes 10mg Take 10 mg U nivers 10 mg 2-10 by mouth ity of tablet 13:37: in the [place] 04 morning. Medical Branch cetirizine Yes Take by Univ ers HCl (ZYRTEC 2-10 mouth ity of ORAL) 13:37: daily. Medical Branch rosuvastati Yes 10mg Take 10 mg Univers n calcium 2-10 by mouth ity of (CRESTOR 13:37: at [place] ORAL) 04 bedtime. Medical Branch metoprolol Yes 50mg Take 50 mg U nivers succinate 2-10 by mouth ity of XL 50 mg 24 13:37: [place] hr tablet morning. Medica l Branch hydroCHLORO Yes 1{tbl} Take 1 Un becca thiazide 2-10 tablet by ity of 12.5 mg 13:37: mouth [place] tablet 04 every Medical morning. Branch fluticasone Yes as needed. Univers propionate 2-10 ity of 50 13:37: [place] mcg/actuati 04 Medical on nasal Branch spray cetirizine Yes 10mg Take 10 mg U nivers 10 mg 2-10 by mouth ity of tablet 13:37: in the [place] 04 morning. Medical Branch cetirizine Yes Take by Univ ers HCl (ZYRTEC 2-10 mouth ity of ORAL) 13:37: daily. Medical Branch rosuvastati Yes 10mg Take 10 mg Univers n calcium 2-10 by mouth ity of (CRESTOR 13:37: at [place] ORAL) 04 bedtime. Medical Branch metoprolol Yes 50mg Take 50 mg U nivers succinate 2-10 by mouth ity of XL 50 mg 24 13:37: [place] tablet 04 morning. Medica l Branch hydroCHLORO Yes 1{tbl} Take 1 Un becca thiazide 2-10 tablet by ity of 12.5 mg 13:37: mouth [place] tablet 04 every Medical morning. Branch fluticasone Yes as needed. Univers propionate 2-10 ity of 50 13:37: [place] mcg/actuati Medical on nasal Branch spray cetirizine Yes 10mg Take 10 mg U nivers 10 mg 2-10 by mouth ity of tablet 13:37: in the [place] 04 morning. Medical Branch cetirizine Yes Take by Univ ers HCl (ZYRTEC 2-10 mouth ity of ORAL) 13:37: daily. Medical Branch rosuvastati Yes 10mg Take 10 mg Univers n calcium 2-10 by mouth ity of (CRESTOR 13:37: at [place] ORAL) 04 bedtime. Medical Branch metoprolol Yes 50mg Take 50 mg U nivers succinate 2-10 by mouth ity of XL 50 mg 24 13:37: [place] tablet morning. Medica l Branch hydroCHLORO Yes 1{tbl} Take 1 Un becca thiazide 2-10 tablet by ity of 12.5 mg 13:37: mouth [place] tablet 04 every Medical morning. Branch fluticasone 0 Yes as needed. Univers propionate 2-10 ity of 50 13:37: [place] mcg/actuati Medical on nasal Branch spray cetirizine Yes 10mg Take 10 mg U nivers 10 mg 2-10 by mouth ity of tablet 13:37: in the [place] 04 morning. Medical Branch cetirizine Yes Take by Univ ers HCl (ZYRTEC 2-10 mouth ity of ORAL) 13:37: daily. [place] 04 Medical Branch rosuvastati Yes 10mg Take 10 mg Univers n calcium 2-10 by mouth ity of (CRESTOR 13:37: at [place] ORAL) 04 bedtime. Medical Branch metoprolol Yes 50mg Take 50 mg U nivers succinate 2-10 by mouth ity of XL 50 mg 24 13:37: [place] tablet 04 morning. Medica l Branch hydroCHLORO Yes 1{tbl} Take 1 Un becca thiazide 2-10 tablet by ity of 12.5 mg 13:37: mouth [place] tablet 04 every Medical morning. Branch fluticasone Yes as needed. Univers propionate 2-10 ity of 50 13:37: [place] mcg/actuati 04 Medical on nasal Branch spray cetirizine Yes 10mg Take 10 mg U nivers 10 mg 2-10 by mouth ity of tablet 13:37: in the [place] 04 morning. Medical Branch ondansetron 2022- No 4mg 4 mg, Slow Univers (ZOFRAN 08-24 IV Push, ity of (PF)) 20:45: 19:35 ONCE, On [place] injection 4 00 :00 [facility] Medical mg 08/24/22 at Branch 1445, For 1 dose
Do ses of ondansetro n 16 mg and above need to be administer ed via IV piggyback. For Dose >=24mg ECG monitoring is advisable.
ondansetron No 4mg 4 mg, Slow Univers (ZOFRAN 08-24 IV Push, ity of (PF)) 20:45: 19:35 ONCE, On [place] injection 4 00 :00 [facility] mg 08/24/22 at Branch 1445, For 1 dose
Do ses of ondansetro n 16 mg and above need to be administer ed via IV piggyback. For Dose >=24mg ECG monitoring is advisable.
HYDROcodone 2022- No 1{tbl} 1 tablet, Univers -acetaminop 08-24 Oral, ity of hen (NORCO 19:00: 19:19 ONCE, 1 Renato as 5) 5-325 mg 00 :00 dose, On Medi atul tablet u Branch tablet 08/24/22 at 1300, Routine, PACU HYDROcodone 2022-0 2022- No 1{tbl} 1 tablet, Univers -acetaminop 08-24 Oral, ity of hen (NORCO 19:00: 19:19 ONCE, 1 [place] as 5) 5-325 mg 00 :00 dose, On Medi atul tablet Sun Branch tablet 08/24/22 at 1300, Routine, PACU morpHINE (4 0 Yes 2mg 2 mg, Slow Univers mg/mL) 08-24 IV Push, ity of injection 2 18:58: Q5MIN PRN, [place] mg 56 5 doses, Medical Starting Branch on Debra 08/24/22 at 1258, Until Discontinu ed, Routine, Pain (scale 4-6), PACU morpHINE (4 2022-0 2022- No 2mg 2 mg, Slow Univers mg/mL) 08-24 IV Push, ity of injection 2 18:58: 23:27 Q5MIN PRN, [place] mg 56 :28 5 doses, Medical Starting Branch on Debra 08/24/22 at 1258, Until Debra 08/24/22 at 1727, Routine, Pain (scale 4-6), PACU ferric 0 Yes PRN, Univers subsulfate 08-24 Starting ity o f (MONSEL'S) 17:50: on Debra [place] solution 08/24/22 at Medic al 1150, Branch Until Discontinu ed, Routine, Intra-op silver 2022-0 Yes PRN, Univers nitrate 08-24 Starting ity of applicator 17:50: on Debra [place] 08/24/22 at Medical 1150, Branch Until Discontinu ed, Routine, Intra-op ferric 2022-0 2022- No PRN, Univers subsulfate 08-24 Starting ity of (MONSEL'S) 17:50: 23:[address] [facility] [place] solution 00 :28 08/24/22 at Medic al 1150, Branch Until Debra 08/24/22 at 1727, Routine, Intra-op silver 2022-0 2022- No PRN, Univers nitrate 08-24 Starting ity of applicator 17:50: 23:27 on [place] 00 :28 08/24/22 at Medical 1150, Branch Until Debra 08/24/22 at 1727, Routine, Intra-op SURGILUBE Yes PRN, Univers gel 08-24 Starting ity of 17:18: on Debra [place] 00 08/24/22 at Medical 1118, Branch Until Discontinu ed, Routine, Intra-op SURGILUBE 2022- No PRN, Univers gel 08-24 Starting ity of 17:18: 23:27 on Debra [place] 00 :28 08/24/22 at Medical 1118, Branch Until Debra 08/24/22 at 1727, Routine, Intra-op sodium 2022- No PRN, Univers chloride 08-24 Starting ity of 0.9 % 16:47: 18:27 on Debra [place] irrigation 00 :18 08/24/[address] [facility] ical solution 1047, Branch Until Debra 08/24/22 at 1227, Intra-op VALSARTAN Yes 180mg Take 180 Uni vers ORAL 08-24 mg by ity of 15:27: mouth [place] 28 daily. Medical Branch cetirizine Yes Take by [facility] [place] [facility] ers HCl (ZYRTEC 08-24 mouth ity of ORAL) 15:27: daily. [place] 28 Medical Branch rosuvastati Yes 10mg Take 10 mg Univers n calcium 08-24 by mouth ity of (CRESTOR 15:27: at [place] ORAL) 28 bedtime. Medical Branch metoprolol Yes 50mg Take 50 mg U nivers succinate 08-24 by mouth ity of XL 50 mg 24 15:27: in the [facility] s hr tablet 28 morning. Medica l Branch aspirin 81 Yes 81mg Take 81 mg U nivers mg EC 08-24 by mouth ity of tablet 15:27: every 3 [place] 28 (three) Medical days. Branch hydroCHLORO Yes 1{tbl} Take 1 Un becca thiazide 08-24 tablet by ity of 12.5 mg 15:27: mouth [place] tablet 28 every Medical morning. Branch fluticasone Yes as needed. Univers propionate 1-26 ity of (FLONASE 15:27: [place] ALLERGY 28 Medical RELIEF) 50 Branch mcg/actuati on nasal spray cetirizine Yes 10mg Take 10 mg U nivers 10 mg 1-26 by mouth ity of tablet 15:27: in the [place] 28 morning. Medical Branch VALSARTAN Yes 180mg Take 180 Uni vers ORAL 1-26 mg by ity of 15:27: mouth [place] 28 daily. Medical Branch cetirizine Yes Take by Univ ers HCl (ZYRTEC - mouth ity of ORAL) 15:27: daily. Medical Branch rosuvastati Yes 10mg Take 10 mg Univers n calcium - by mouth ity of (CRESTOR 15:27: at [place] ORAL) 28 bedtime. Medical Branch metoprolol Yes 50mg Take 50 mg U nivers succinate - by mouth ity of XL 50 mg 24 15:27: [place] hr tablet 28 morning. Medica l Branch aspirin 81 Yes 81mg Take 81 mg U nivers mg EC - by mouth ity of tablet 15:27: every 3 [place] 28 (three) Medical days. Branch hydroCHLORO Yes 1{tbl} Take 1 Un becca thiazide 1-26 tablet by ity of 12.5 mg 15:27: mouth [place] tablet 28 every Medical morning. Branch fluticasone Yes as needed. Univers propionate 1-26 ity of (FLONASE 15:27: [place] ALLERGY 28 Medical RELIEF) 50 Branch mcg/actuati on nasal spray cetirizine Yes 10mg Take 10 mg U nivers 10 mg -26 by mouth ity of tablet 15:27: in the [place] 28 morning. Medical Branch VALSARTAN Yes 180mg Take 180 Uni vers ORAL 1-26 mg by ity of 15:27: mouth [place] 28 daily. Medical Branch cetirizine Yes Take by Univ ers HCl (ZYRTEC 1-26 mouth ity of ORAL) 15:27: daily. Medical Branch rosuvastati Yes 10mg Take 10 mg Univers n calcium -26 by mouth ity of (CRESTOR 15:27: at [place] ORAL) 28 bedtime. Medical Branch metoprolol Yes 50mg Take 50 mg U nivers succinate 1-26 by mouth ity of XL 50 mg 24 15:27: [place] hr tablet 28 morning. Medica l Branch aspirin 81 0 Yes 81mg Take 81 mg U nivers mg EC 1-26 by mouth ity of tablet 15:27: every 3 [place] 28 (three) Medical days. Branch hydroCHLORO 0 Yes 1{tbl} Take 1 Un becca thiazide 1-26 tablet by ity of 12.5 mg 15:27: mouth [place] tablet 28 every Medical morning. Branch fluticasone 2022-0 Yes as needed. Univers propionate 1-26 ity of (FLONASE 15:27: [place] ALLERGY 28 Medical RELIEF) 50 Branch mcg/actuati on nasal spray cetirizine Yes 10mg Take 10 mg U nivers 10 mg - by mouth ity of tablet 15:27: in the [place] 28 morning. Medical Branch VALSARTAN Yes 180mg Take 180 Uni vers ORAL 1-26 mg by ity of 15:27: mouth [place] 28 daily. Medical Branch cetirizine Yes Take by [facility] [place] [facility] ers HCl (ZYRTEC 1- mouth ity of ORAL) 15:27: daily. [place] [address] Medical Branch rosuvastati 0 Yes 10mg Take 10 mg Univers n calcium -26 by mouth ity of (CRESTOR 15:27: at [place] ORAL) 28 bedtime. Medical Branch metoprolol Yes 50mg Take 50 mg U nivers succinate 1-26 by mouth ity of XL 50 mg 24 15:27: [place] tablet 28 morning. Medica l Branch aspirin 81 0 Yes 81mg Take 81 mg U nivers mg EC 1-26 by mouth ity of tablet 15:27: every 3 [place] 28 (three) Medical days. Branch hydroCHLORO 2022-0 Yes 1{tbl} Take 1 Un becca thiazide 1-26 tablet by ity of 12.5 mg 15:27: mouth [place] tablet 28 every Medical morning. Branch fluticasone 2022-0 Yes as needed. Univers propionate 1-26 ity of (FLONASE 15:27: [place] ALLERGY 28 Medical RELIEF) 50 Branch mcg/actuati on nasal spray cetirizine Yes 10mg Take 10 mg U nivers 10 mg 1-26 by mouth ity of tablet 15:27: in the [place] 28 morning. Medical Branch VALSARTAN 0 Yes 180mg Take 180 Uni vers ORAL 1-26 mg by ity of 15:27: mouth [place] 28 daily. Medical Branch aspirin 81 0 Yes 81mg Take 81 mg U nivers mg EC 1-26 by mouth ity of tablet 15:27: every 3 [place] 28 (three) Medical days. Branch VALSARTAN 0 Yes 180mg Take 180 Uni vers ORAL 1-26 mg by ity of 15:27: mouth [place] 28 daily. Medical Branch aspirin 81 0 Yes 81mg Take 81 mg U nivers mg EC 1-26 by mouth ity of tablet 15:27: every 3 [place] 28 (three) Medical days. Branch VALSARTAN 2022-0 Yes 180mg Take 180 Uni vers ORAL 1-26 mg by ity of 15:27: mouth [place] 28 daily. Medical Branch aspirin 81 0 Yes 81mg Take 81 mg U nivers mg EC 1-26 by mouth ity of tablet 15:27: every 3 [place] 28 (three) Medical days. Branch VALSARTAN 0 Yes 180mg Take 180 Uni vers ORAL 1-26 mg by ity of 15:27: mouth [place] 28 daily. Medical Branch aspirin 81 2022-0 Yes 81mg Take 81 mg U nivers mg EC 1-26 by mouth ity of tablet 15:27: every 3 [place] 28 (three) Medical days. Branch VALSARTAN 2022-0 Yes 180mg Take 180 Uni vers ORAL 1-26 mg by ity of 15:27: mouth [place] 28 daily. Medical Branch aspirin 81 2022-0 Yes 81mg Take 81 mg U nivers mg EC 1-26 by mouth ity of tablet 15:27: every 3 [place] 28 (three) Medical days. Branch VALSARTAN 2022-0 Yes 180mg Take 180 Uni vers ORAL 1-26 mg by ity of 15:27: mouth [place] 28 daily. Medical Branch aspirin 81 2022-0 Yes 81mg Take 81 mg [facility] nivers mg EC 1-26 by mouth ity of tablet 15:27: every 3 [place] 28 (three) Medical days. Branch VALSARTAN Yes 180mg Take 180 Uni vers ORAL 1-26 mg by ity of 15:27: mouth [place] 28 daily. Medical Branch aspirin 81 0 Yes 81mg Take 81 mg U nivers mg EC -26 by mouth ity of tablet 15:27: every 3 [place] 28 (three) Medical days. Branch VALSARTAN 0 Yes 180mg Take 180 Uni vers ORAL 1-26 mg by ity of 15:27: mouth [place] 28 daily. Medical Branch aspirin 81 0 Yes 81mg Take 81 mg U nivers mg EC 1-26 by mouth ity of tablet 15:27: every 3 [place] 28 (three) Medical days. Branch VALSARTAN Yes 180mg Take 180 Uni vers ORAL 1-26 mg by ity of 15:27: mouth [place] 28 daily. Medical Branch aspirin 81 Yes 81mg Take 81 mg U nivers mg EC - by mouth ity of tablet 15:27: every 3 [place] 28 (three) Medical days. Branch rosuvastati 2022- No 1{tbl} Take 1 U nivers n 10 mg 08-24 tablet by ity of tablet 15:27: 00:00 mouth at [place] 27 :00 bedtime. Medical Branch rosuvastati 2022- No 1{tbl} Take 1 U nivers n 10 mg 08-24 tablet by ity of tablet 15:27: 00:00 mouth at [place] 27 :00 bedtime. Medical Branch metoprolol 2022- No 1{tbl} Take 1 [facility] becca succinate 08-2412 tablet by ity of 50 mg CSpX 15:27: 00:00 mouth [place] 27 :00 daily. Medical Branch metoprolol 2022- No 1{tbl} Take 1 [facility] be[facility] succinate 08-24 tablet by ity of 50 mg CSpX 15:27: 00:00 mouth [place] 27 :00 daily. Medical Branch lactated 2022- No 1000mL at 42 Unive rs ringers IV 08-24- mL/hr, ity of infusion 14:00: 14:08 1,000 mL, Renato as 1,000 mL 00 :00 IV Medical Infusion, Branch ONCE, 1 dose, On Debra 08/24/22 at 0800, Routine, [facility] Pre-op lactated 2022-0 2022- No 1000mL at 42 Unive rs ringers IV 08-24 01-26 mL/hr, ity of infusion 14:00: 14:08 1,000 mL, Renato as 1,000 mL 00 :00 IV Medical Infusion, Branch ONCE, 1 dose, On Debra 08/24/22 at 0800, Routine, [facility] Pre-op tamsulosin 2022-0 2022- No Take by Uni vers HCl (FLOMAX 08-24 mouth. ity o f ORAL) 12:25: 00:00 [place] 12 :00 Medical Branch tamsulosin 2022-0 2022- No Take by Uni vers HCl (FLOMAX 08-24 mouth. ity o f ORAL) 12:25: 00:00 [place] 12 :00 Medical Branch acetaminoph 2022-0 Yes [id number] 1{tbl} Take 1 Un be[facility] en-codeine 1-26 tablet by ity of 300-30 mg 00:00: mouth [place] tablet 00 every 6 Medical (six) Branch hours as needed for Pain (scale 4-6) or Pain (scale 7-10). Indication s: acute pain acetaminoph 2022-0 Yes 4647 1{tbl} Take 1 [facility] be[facility] en-codeine 1-26 tablet by ity of 300-30 mg 00:00: mouth [place] tablet 00 every 6 Medical (six) Branch hours as needed for Pain (scale 4-6) or Pain (scale 7-10). Indication s: acute pain acetaminoph 3-0 Yes 4647 1{tbl} Take 1 [facility] en-codeine 1-26 tablet by ity of 300-30 mg 00:00: mouth [place] tablet 00 every 6 Medical (six) Branch hours as needed for Pain (scale 4-6) or Pain (scale 7-10). Indication s: acute pain acetaminoph 3-0 Yes 4647 1{tbl} Take 1 [facility] be[facility] en-codeine 1-26 tablet by ity of 300-30 mg 00:00: mouth [place] tablet 00 every 6 Medical (six) Branch hours as needed for Pain (scale 4-6) or Pain (scale 7-10). Indication s: acute pain acetaminoph 2023-0 Yes 4647 1{tbl} Take 1 [facility] en-codeine 1-26 tablet by ity of 300-30 mg 00:00: mouth [place] tablet 00 every 6 Medical (six) Branch hours as needed for Pain (scale 4-6) or Pain (scale 7-10). Indication s: acute pain acetaminoph 2023-0 Yes 4647 1{tbl} Take 1 [facility] en-codeine 1-26 tablet by ity of 300-30 mg 00:00: mouth [place] tablet 00 every 6 Medical (six) Branch hours as needed for Pain (scale 4-6) or Pain (scale 7-10). Indication s: acute pain acetaminoph 2023-0 Yes 4647 1{tbl} Take 1 [facility] en-codeine 1-26 tablet by ity of 300-30 mg 00:00: mouth [place] tablet 00 every 6 Medical (six) Branch hours as needed for Pain (scale 4-6) or Pain (scale 7-10). Indication s: acute pain acetaminoph 2023-0 Yes 4647 1{tbl} Take 1 [facility] en-codeine 1-26 tablet by ity of 300-30 mg 00:00: mouth [place] tablet 00 every 6 Medical (six) Branch hours as needed for Pain (scale 4-6) or Pain (scale 7-10). Indication s: acute pain acetaminoph 2023-0 Yes 4647 1{tbl} Take 1 [facility] en-codeine 1-26 tablet by ity of 300-30 mg 00:00: mouth [place] tablet 00 every 6 Medical (six) Branch hours as needed for Pain (scale 4-6) or Pain (scale 7-10). Indication s: acute pain acetaminoph 2023-0 Yes 4647 1{tbl} Take 1 [facility] en-codeine 1-26 tablet by ity of 300-30 mg 00:00: mouth [place] tablet 00 every 6 Medical (six) Branch hours as needed for Pain (scale 4-6) or Pain (scale 7-10). Indication s: acute pain acetaminoph 2023-0 Yes 4647 1{tbl} Take 1 [facility] be[facility] en-codeine 1-26 tablet by ity of 300-30 mg 00:00: mouth [place] tablet 00 every 6 Medical (six) Branch hours as needed for Pain (scale 4-6) or Pain (scale 7-10). Indication s: acute pain acetaminoph 2022-0 Yes 4647 1{tbl} Take 1 [facility] be[facility] en-codeine 1-26 tablet by ity of 300-30 mg 00:00: mouth [place] tablet 00 every 6 Medical (six) Branch hours as needed for Pain (scale 4-6) or Pain (scale 7-10). Indication s: acute pain acetaminoph 2022-0 Yes 4647 1{tbl} Take 1 [facility] be[facility] en-codeine 1-26 tablet by ity of 300-30 mg 00:00: mouth [place] tablet 00 every 6 Medical (six) Branch hours as needed for Pain (scale 4-6) or Pain (scale 7-10). Indication s: acute pain furosemide 2022- No Take by Uni vers (LASIX 08-1012 mouth. ity of ORAL) 15:45: 00:00 [place] 55 :00 Medical Branch furosemide 2022-0 2022- No Take by Uni vers (LASIX 08-1012 mouth. ity of ORAL) 15:45: 00:00 [place] 55 :00 Medical Branch fluticasone 0 Yes as needed. [facility] propionate 1-12 ity of (FLONASE 15:45: [place] ALLERGY Medical RELIEF) 50 Branch mcg/actuati on nasal spray cetirizine Yes 10mg Take 10 mg U nivers 10 mg 1-12 by mouth ity of tablet 15:45: in the [place] [address] morning. Medical Branch rosuvastati Yes 1{tbl} Take 1 [facility] becca n 10 mg 1-12 tablet by ity of tablet 15:45: mouth at [place] [address] bedtime. Medical Branch VALSARTAN Yes 180mg Take 180 Uni vers ORAL 1-12 mg by ity of 15:19: mouth [place] 48 daily. Medical Branch tamsulosin Yes Take by Univ ers HCl (FLOMAX 1-12 mouth. ity of ORAL) 15:19: [place] 48 Medical Branch rosuvastati Yes 10mg Take 10 mg [facility] n calcium 1-12 by mouth ity of (CRESTOR 15:19: at [place] ORAL) 48 bedtime. Medical Branch hydroCHLORO Yes 1{tbl} Take 1 [facility] thiazide 1-12 tablet by ity of 12.5 mg 15:19: mouth [place] tablet 48 every Medical morning. Branch cetirizine Yes Take by [facility] [place] [facility] ers HCl (ZYRTEC 1-12 mouth ity of ORAL) 15:12: daily. [place] [address] Medical Branch aspirin 81 0 Yes 81mg Take 81 mg U nivers mg EC 1-12 by mouth ity of tablet 15:12: every 3 [place] 45 (three) Medical days. Branch miSOPROStoL Yes [id number] Take one [facility] 200 mcg 1-06 tablet ity of tablet 00:00: night [place] 00 before Medical procedure, Branch then take one tablet morning of procedure miSOPROStoL 0 Yes [id number] Take one [facility] 200 mcg 1-06 tablet ity of tablet 00:00: night [place] 00 before Medical procedure, Branch then take one tablet morning of procedure miSOPROStoL 0 Yes [id number] Take one [facility] 200 mcg 1-06 tablet ity of tablet 00:00: night [place] 00 before Medical procedure, Branch then take one tablet morning of procedure miSOPROStoL 0 Yes [id number] Take one [facility] 200 mcg 1-06 tablet ity of tablet 00:00: night [place] 00 before Medical procedure, Branch then take one tablet morning of procedure miSOPROStoL 0 2022- No [id number] Take one [facility] 200 mcg 1-06 -26 tablet ity of tablet 00:00: 00:00 night [place] 00 :00 before Medical procedure, Branch then take one tablet morning of procedure miSOPROStoL 2022-0 2022- No [id number] Take one [facility] 200 mcg 1-06 -26 tablet ity of tablet 00:00: 00:00 night [place] 00 :00 before Medical procedure, Branch then take one tablet morning of procedure amoxicillin 2022-0 2022- No [id number] 1{tbl} Take 1 [facility] -clavulanat 1-03 -11 tablet by it y of e 00:00: 05:59 mouth in [place] (AUGMENTIN) 00 :00 the Medical 875-125 mg morning Branch per tablet and 1 tablet in the evening. Do all this for 7 days. amoxicillin 2022- No [id number] 1{tbl} Take 1 [facility] -clavulanat 08-01 tablet by it y of e 00:00: 05:59 mouth in [place] (AUGMENTIN) 00 :00 the Medical 875-125 mg morning Branch per tablet and 1 tablet in the evening. Do all this for 7 days. amoxicillin 2022- No [id number] 1{tbl} Take 1 [facility] -clavulanat 08-01 tablet by it y of e 00:00: 05:59 mouth in [place] (AUGMENTIN) 00 :00 the Medical 875-125 mg morning Branch per tablet and 1 tablet in the evening. Do all this for 7 days. amoxicillin 2022- No [id number] 1{tbl} Take 1 [facility] -clavulanat 08-01 tablet by it y of e 00:00: 05:59 mouth in [place] (AUGMENTIN) 00 :00 the Medical 875-125 mg morning Branch per tablet and 1 tablet in the evening. Do all this for 7 days. esomeprazol 2021-07 Yes 40mg QD Take 40 mg [facility] (NexIUM) 2-[address] 40 MG 16:22: daily [facility] capsule [facility] before l breakfast. rosuvastati 2021-07 Yes 10mg QD Take 1 Meth danyel n (CRESTOR) 2-19 tablet (10 st 10 MG 16:22: mg total) [facility] tablet 24 by mouth l daily. acetaminoph 2021-07 Yes Take by [facility] en (TYLENOL 2-[address] EXTRA 16:22: [facility] STRENGTH 24 l ORAL) cetirizine 2021-07 Yes 10mg QD Take 10 mg M ethodi (ZyrTEC) 10 2-[address] MG tablet 16:22: daily. [facility] 24 l metoprolol 2021-07 Yes 25mg Q.5D Take 1 Metho di tartrate 2-19 tablet (25 st (LOPRESSOR) 16:22: mg total) [facility] 25 mg 24 by mouth 2 l tablet (two) times a day. doxycycline 2021-07 Yes 100mg Q.5D Take 1 Met hodi (VIBRAMYCIN 2-[address] ) 100 MG 16:22: (100 mg Hospit a oral dosage 24 total) by l form mouth 2 (two) times a day. valACYclovi 2021-07 Yes [id number] 1g Take 1 Univers r (VALTREX) 2-19 tablet by ity of 1 gram 00:00: mouth in [place] tablet 00 the Medical morning. Branch acyclovir 2021-07 Yes [id number] Apply to [facility] % ointment 2-19 area(s) 5 ity of 00:00: (five) [place] 00 times Medical daily. Branch valACYclovi 2021-07 Yes [id number] 1g Take 1 Univers r (VALTREX) 2-19 tablet by ity of 1 gram 00:00: mouth in [place] tablet 00 the Medical morning. Branch acyclovir 2021-07 Yes [id number] Apply to Univers % ointment 2-19 area(s) 5 ity of 00:00: (five) [place] 00 times Medical daily. Branch valACYclovi 2021-07 Yes [id number] 1g Take 1 Univers r (VALTREX) 2-19 tablet by ity of 1 gram 00:00: mouth in [place] tablet 00 the Medical morning. Branch acyclovir 2021-07 Yes [id number] Apply to Univers % ointment 2-19 area(s) 5 ity of 00:00: (five) [place] 00 times Medical daily. Branch valACYclovi 2021-07 Yes [id number] 1g Take 1 Univers r (VALTREX) 2-19 tablet by ity of 1 gram 00:00: mouth in [place] tablet 00 the Medical morning. Branch acyclovir 2021-07 Yes [id number] Apply to Univers % ointment 2-19 area(s) 5 ity of 00:00: (five) [place] 00 times Medical daily. Branch valACYclovi 2021-07 Yes [id number] 1g Take 1 Univers r (VALTREX) 2-19 tablet by ity of 1 gram 00:00: mouth in [place] tablet 00 the Medical morning. Branch acyclovir 2021-07 Yes [id number] Apply to [facility] % ointment 2-19 area(s) 5 ity of 00:00: (five) [place] 00 times Medical daily. Branch valACYclovi 2021-07 Yes [id number] 1g Take 1 Univers r (VALTREX) 2-19 tablet by ity of 1 gram 00:00: mouth in [place] tablet 00 the Medical morning. Branch acyclovir 2021-07 Yes [id number] Apply to Univers % ointment 2-19 area(s) 5 ity of 00:00: (five) [place] 00 times Medical daily. Branch valACYclovi 2021-07 Yes [id number] 1g Take 1 Univers r (VALTREX) 2-19 tablet by ity of 1 gram 00:00: mouth in [place] tablet 00 the Medical morning. Branch acyclovir 2021-07 Yes [id number] Apply to Univers % ointment 2-19 area(s) 5 ity of 00:00: (five) [place] 00 times Medical daily. Branch valACYclovi 2021-07 Yes [id number] 1g Take 1 Univers r (VALTREX) 2-19 tablet by ity of 1 gram 00:00: mouth in [place] tablet 00 the Medical morning. Branch acyclovir 2021-07 Yes [id number] Apply to [facility] % ointment 2-19 area(s) 5 ity of 00:00: (five) [place] 00 times Medical daily. Branch valACYclovi 2021-07 Yes [id number] 1g Take 1 Univers r (VALTREX) 2-19 tablet by ity of 1 gram 00:00: mouth in [place] tablet 00 the Medical morning. Branch acyclovir 2021-07 Yes [id number] Apply to Univers % ointment 2-19 area(s) 5 ity of 00:00: (five) [place] 00 times Medical daily. Branch valACYclovi 2021-07 Yes [id number] 1g Take 1 Univers r (VALTREX) 2-19 tablet by ity of 1 gram 00:00: mouth in [place] tablet 00 the Medical morning. Branch acyclovir 2021-07 Yes [id number] Apply to Univers % ointment 2-19 area(s) 5 ity of 00:00: (five) [place] 00 times Medical daily. Branch valACYclovi 2021-07 Yes [id number] 1g Take 1 Univers r (VALTREX) 2-19 tablet by ity of 1 gram 00:00: mouth in [place] tablet 00 the Medical morning. Branch acyclovir 2021-07 Yes [id number] Apply to Univers % ointment 2-19 area(s) 5 ity of 00:00: (five) [place] 00 times Medical daily. Branch valACYclovi 2021-07 Yes [id number] 1g Take 1 Univers r (VALTREX) 2-19 tablet by ity of 1 gram 00:00: mouth in [place] tablet 00 the Medical morning. [place] acyclovir 5 2021-07 Yes [id number] Apply to Univers % ointment 2-19 area(s) 5 ity of 00:00: (five) [place] 00 times Medical daily. Branch valACYclovi 2021-07 Yes [id number] 1g Take 1 Univers r (VALTREX) 2-19 tablet by ity of 1 gram 00:00: mouth in [place] tablet 00 the Medical morning. Branch valACYclovi 2021-07 Yes [id number] 1g Take 1 Univers r (VALTREX) 2-19 tablet by ity of 1 gram 00:00: mouth in [place] tablet 00 the Medical morning. Branch valACYclovi 2021-07 Yes [id number] 1g Take 1 Univers r (VALTREX) 2-19 tablet by ity of 1 gram 00:00: mouth in [place] tablet 00 the Medical morning. Branch valACYclovi 2021-07 Yes [id number] 1g Take 1 Univers r (VALTREX) 2-19 tablet by ity of 1 gram 00:00: mouth in [place] tablet 00 the Medical morning. Branch valACYclovi 2021-07 Yes [id number] 1g Take 1 Univers r (VALTREX) 2-19 tablet by ity of 1 gram 00:00: mouth in [place] tablet 00 the Medical morning. Branch valACYclovi 2021-07 Yes [id number] 1g Take 1 Univers r (VALTREX) 2-19 tablet by ity of 1 gram 00:00: mouth in [place] tablet 00 the Medical morning. Branch valACYclovi 2021-07 Yes [id number] 1g Take 1 Univers r (VALTREX) 2-19 tablet by ity of 1 gram 00:00: mouth in [place] tablet 00 the Medical morning. Branch valACYclovi 2021-07 Yes [id number] 1g Take 1 Univers r (VALTREX) 2-19 tablet by ity of 1 gram 00:00: mouth in [place] tablet 00 the Medical morning. Branch valACYclovi 2021-07 Yes [id number] 1g Take 1 Univers r (VALTREX) 2-19 tablet by ity of 1 gram 00:00: mouth in [place] tablet 00 the Medical morning. Branch valACYclovi 2021-07 Yes [id number] 1g Take 1 Univers r (VALTREX) 2-19 tablet by ity of 1 gram 00:00: mouth in [place] tablet 00 the Medical morning. Branch stefanieACYclovi 2021-07 Yes [id number] 1g Take 1 Univers r (VALTREX) 2-19 tablet by ity of 1 gram 00:00: mouth in [place] tablet 00 the Medical morning. Branch valACYclovi 2021-07 Yes [id number] 1g Take 1 Univers r (VALTREX) 2-19 tablet by ity of 1 gram 00:00: mouth in [place] tablet 00 the Medical morning. Branch valACYclovi 2021-07 Yes [id number] 1g Take 1 Univers r (VALTREX) 2-19 tablet by ity of 1 gram 00:00: mouth in [place] tablet 00 the Medical morning. Branch stefanieACYcljean-pierre 2021-07 Yes [id number] 1g Take 1 Univers r (VALTREX) 2-19 tablet by ity of 1 gram 00:00: mouth in [place] tablet 00 the Medical morning. Branch acyclovir 5 2021-07- No [id number] Apply to Univers % ointment 2-19 -12 area(s) 5 ity of 00:00: 00:00 (five) [place] 00 :00 times Medical daily. Branch acyclovir 5 2021-07- No [id number] Apply to Univers % ointment 2-19 08-10 area(s) 5 ity of 00:00: 00:00 (five) [place] 00 :00 times Medical daily. Branch valACYclovi 2021-07- No [id number] 1g Take 1 Univers r (VALTREX) 2-19 12-19 tablet by it y of 1 gram 00:00: 00:00 mouth in [place] tablet 00 :00 the Medical morning. Branch acyclovir 5 2021-07- No [id number] Apply to Univers % ointment 2-19 12-19 area(s) 5 ity of 00:00: 00:00 (five) [place] 00 :00 times Medical daily. Branch valACYclovi 2021-07- No [id number] 1g Take 1 Univers r (VALTREX) 2-19 12-19 tablet by it y of 1 gram 00:00: 00:00 mouth in [place] tablet 00 :00 the Medical morning. Branch acyclovir 5 2021-07- No [id number] Apply to Univers % ointment 2-19 12-19 area(s) 5 ity of 00:00: 00:00 (five) [place] 00 :00 times Medical daily. Branch metoprolol 2021-07 Yes 50mg Take 50 mg U nivers succinate 2-15 by mouth ity of XL 50 mg 24 15:30: [place] tablet 19 morning. Medica l Branch metoprolol 2021-07 Yes 50mg Take 50 mg U nivers succinate 2-15 by mouth ity of XL 50 mg 24 15:30: [place] tablet 19 morning. Medica l Branch metoprolol 2021-07 Yes 50mg Take 50 mg U nivers succinate 2-15 by mouth ity of XL 50 mg 24 15:30: [place] tablet 19 morning. Medica l Branch metoprolol 2021-07 Yes 50mg Take 50 mg U nivers succinate 2-15 by mouth ity of XL 50 mg 24 15:30: [place] tablet 19 morning. Medica l Branch metoprolol 2021-07 Yes 50mg Take 50 mg U nivers succinate 2-15 by mouth ity of XL 50 mg 24 15:30: in [place] tablet 19 morning. Medica l Branch metoprolol 2021-07 Yes 50mg Take 50 mg U nivers succinate 2-15 by mouth ity of XL 50 mg 24 15:30: in [place] tablet 19 morning. Medica l Branch metoprolol 2021-07 Yes 50mg Take 50 mg U nivers succinate 2-15 by mouth ity of XL 50 mg 24 15:30: in [place] tablet 19 morning. Medica l Branch metoprolol 2021-07 Yes 50mg Take 50 mg U nivers succinate 2-15 by mouth ity of XL 50 mg 24 15:30: [place] tablet 19 morning. Medica l Branch metoprolol 2021-07 Yes 50mg Take 50 mg U nivers succinate 2-15 by mouth ity of XL 50 mg 24 15:30: [place] tablet 19 morning. Medica l Branch metoprolol 2021-07 Yes 50mg Take 50 mg U nivers succinate 2-15 by mouth ity of XL 50 mg 24 15:30: [place] tablet 19 morning. Medica l Branch metoprolol 2021-07 Yes 50mg Take 50 mg U nivers succinate 2-15 by mouth ity of XL 50 mg 24 15:30: [place] tablet 19 morning. Atilio Lizama metoprolol 2021-07 Yes 50mg Take 50 mg U nivers succinate 2-15 by mouth ity of XL 50 mg 24 15:30: [place] tablet 19 morning. Atilio Lizama metoprolol 2021-07 Yes 50mg Take 50 mg U nivers succinate 2-15 by mouth ity of XL 50 mg 24 15:30: [place] tablet 19 morning. Atilio Lizama metoprolol 2021-07 Yes 50mg Take 50 mg U nivers succinate 2-15 by mouth ity of XL 50 mg 24 15:30: [place] tablet 19 morning. Atilio Lizama metoprolol 2021-07 Yes 50mg Take 50 mg U nivers succinate 2-15 by mouth ity of XL 50 mg 24 15:30: [place] tablet 19 morning. Atilio Liz[place] metoprolol 2021-07 Yes 50mg Take 50 mg U nivers succinate 2-15 by mouth ity of XL 50 mg 24 15:30: [place] tablet 19 morning. Atilio Lizama miSOPROStoL 2021-07 Yes [id number] Take one [facility] 200 mcg 2-15 tablet ity of tablet 00:00: night [place] 00 before Medical procedure, Branch then take one tablet morning of procedure clotrimazol 2021-07 Yes [id number] Apply to [facility] e 1 % 2-15 area(s) 2 ity of topical 00:00: (two) [place] cream 00 times Medical daily. Branch miSOPROStoL 2021-07 Yes [id number] Take one [facility] 200 mcg 2-15 tablet ity of tablet 00:00: night [place] 00 before Medical procedure, Branch then take one tablet morning of procedure clotrimazol 2021-07 Yes [id number] Apply to Univers e 1 % 2-15 area(s) 2 ity of topical 00:00: (two) [place] cream 00 times Medical daily. Branch miSOPROStoL 2021-07 Yes [id number] Take one [facility] 200 mcg 2-15 tablet ity of tablet 00:00: night [place] 00 before Medical procedure, Branch then take one tablet morning of procedure clotrimazol 2021-07 Yes [id number] Apply to Univers e 1 % 2-15 area(s) 2 ity of topical 00:00: (two) [place] cream 00 times Medical daily. Branch miSOPROStoL 2021-07 Yes [id number] Take one [facility] 200 mcg 2-15 tablet ity of tablet 00:00: night [place] 00 before Medical procedure, Branch then take one tablet morning of procedure clotrimazol 2021-07 Yes [id number] Apply to Univers e 1 % 2-15 area(s) 2 ity of topical 00:00: (two) [place] cream 00 times Medical daily. Branch miSOPROStoL 2021-07 Yes [id number] Take one [facility] 200 mcg 2-15 tablet ity of tablet 00:00: night [place] 00 before Medical procedure, Branch then take one tablet morning of procedure clotrimazol 2021-07 Yes [id number] Apply to Univers e 1 % 2-15 area(s) 2 ity of topical 00:00: (two) [place] cream 00 times Medical daily. Branch miSOPROStoL 2021-07 Yes [id number] Take one [facility] 200 mcg 2-15 tablet ity of tablet 00:00: night [place] 00 before Medical procedure, Branch then take one tablet morning of procedure clotrimazol 2021-07 Yes [id number] Apply to Univers e 1 % 2-15 area(s) 2 ity of topical 00:00: (two) [place] cream 00 times Medical daily. Branch miSOPROStoL 2021-07 Yes [id number] Take one [facility] 200 mcg 2-15 tablet ity of tablet 00:00: night [place] 00 before Medical procedure, Branch then take one tablet morning of procedure clotrimazol 2021-07 Yes [id number] Apply to Univers e 1 % 2-15 area(s) 2 ity of topical 00:00: (two) [place] cream 00 times Medical daily. Branch miSOPROStoL 2021-07 Yes [id number] Take one [facility] 200 mcg 2-15 tablet ity of tablet 00:00: night [place] 00 before Medical procedure, Branch then take one tablet morning of procedure clotrimazol 2021-07 Yes [id number] Apply to Univers e 1 % 2-15 area(s) 2 ity of topical 00:00: (two) [place] cream 00 times Medical daily. Branch miSOPROStoL 2021-07 Yes [id number] Take one [facility] 200 mcg 2-15 tablet ity of tablet 00:00: night [place] 00 before Medical procedure, Branch then take one tablet morning of procedure clotrimazol 2021-07 Yes [id number] Apply to [facility] e 1 % 2-15 area(s) 2 ity of topical 00:00: (two) [place] cream 00 times Medical daily. Branch miSOPROStoL 2021-07 Yes [id number] Take one [facility] 200 mcg 2-15 tablet ity of tablet 00:00: night [place] 00 before Medical procedure, Branch then take one tablet morning of procedure clotrimazol 2021-07 Yes [id number] Apply to [facility] e 1 % 2-15 area(s) 2 ity of topical 00:00: (two) [place] cream 00 times Medical daily. Branch miSOPROStoL 2021-07 Yes [id number] Take one [facility] 200 mcg 2-15 tablet ity of tablet 00:00: night [place] 00 before Medical procedure, Branch then take one tablet morning of procedure clotrimazol 2021-07 Yes [id number] Apply to [facility] e 1 % 2-15 area(s) 2 ity of topical 00:00: (two) [place] cream 00 times Medical daily. Branch clotrimazol 2021-07 Yes [id number] Apply to Univers e 1 % 2-15 area(s) 2 ity of topical 00:00: (two) [place] cream 00 times Medical daily. Branch clotrimazol 2021-07 Yes [id number] Apply to Univers e 1 % 2-15 area(s) 2 ity of topical 00:00: (two) [place] cream 00 times Medical daily. Branch clotrimazol 2021-07 Yes [id number] Apply to Univers e 1 % 2-15 area(s) 2 ity of topical 00:00: (two) [place] cream 00 times Medical daily. Branch clotrimazol 2021-07 Yes [id number] Apply to [facility] e 1 % 2-15 area(s) 2 ity of topical 00:00: (two) [place] cream 00 times Medical daily. Branch clotrimazol 2021-07 Yes [id number] Apply to [facility] e 1 % 2-15 area(s) 2 ity of topical 00:00: (two) [place] cream 00 times Medical daily. Branch clotrimazol 2021-07 Yes [id number] Apply to Univers e 1 % 2-15 area(s) 2 ity of topical 00:00: (two) [place] cream 00 times Medical daily. Branch clotrimazol 2021-07 Yes [id number] Apply to [facility] e 1 % 2-15 area(s) 2 ity of topical 00:00: (two) [place] cream 00 times Medical daily. Branch clotrimazol 2021-07 Yes [id number] Apply to [facility] e 1 % 2-15 area(s) 2 ity of topical 00:00: (two) [place] cream 00 times Medical daily. Branch clotrimazol 2021-07 Yes [id number] Apply to [facility] e 1 % 2-15 area(s) 2 ity of topical 00:00: (two) [place] cream 00 times Medical daily. Branch clotrimazol 2021-07 Yes [id number] Apply to [facility] e 1 % 2-15 area(s) 2 ity of topical 00:00: (two) [place] cream 00 times Medical daily. Branch clotrimazol 2021-07 Yes [id number] Apply to [facility] e 1 % 2-15 area(s) 2 ity of topical 00:00: (two) [place] cream 00 times Medical daily. Branch clotrimazol 2021-07 Yes [id number] Apply to [facility] e 1 % 2-15 area(s) 2 ity of topical 00:00: (two) [place] cream 00 times Medical daily. Branch clotrimazol 2021- Yes [id number] Apply to Univers e 1 % 2-15 area(s) 2 ity of topical 00:00: (two) [place] cream 00 times Medical daily. Branch clotrimazol 2021- Yes [id number] Apply to [facility] 1 % 2-15 area(s) 2 ity of topical 00:00: (two) [place] cream 00 times Medical daily. Branch clotrimazol 2021- Yes [id number] Apply to [facility] e 1 % 2-15 area(s) 2 ity of topical 00:00: (two) [place] cream 00 times Medical daily. Branch clotrimazol 2021-07 Yes [id number] Apply to Univers e 1 % 2-15 area(s) 2 ity of topical 00:00: (two) [place] cream 00 times Medical daily. Branch clotrimazol 2021-07 Yes [id number] Apply to Univers e 1 % 2-15 area(s) 2 ity of topical 00:00: (two) [place] cream 00 times Medical daily. Branch clotrimazol 2021-07 Yes [id number] Apply to [facility] e 1 % 2-15 area(s) 2 ity of topical 00:00: (two) [place] cream 00 times Medical daily. Branch miSOPROStoL 2021-07- No [id number] Take one Univers 200 mcg 2-15 -06 tablet ity of tablet 00:00: 00:00 night [place] 00 :00 before Medical procedure, Branch then take one tablet morning of procedure miSOPROStoL 2021-07- No [id number] Take one Univers 200 mcg 2-15 -06 tablet ity of tablet 00:00: 00:00 night [place] 00 :00 before Medical procedure, Branch then take one tablet morning of procedure meloxicam 2021-07 Yes as needed. Un [facility] 15 mg 2-01 ity of tablet 00:00: [facility] meloxicam 2021-07 Yes as needed. Un [place] 15 mg 2-01 ity of tablet 00:00: [facility] meloxicam 2021-07 Yes as needed. Un [place] 15 mg 2-01 ity of tablet 00:00: [facility] meloxicam 2021-07 Yes as needed. Un [place] 15 mg 2-01 ity of tablet 00:00: Medical Branch meloxicam 2021-07 Yes as needed. Un [place] 15 mg 2-01 ity of tablet 00:00: [facility] Branch meloxicam 2021-07 Yes as needed. Un becca 15 mg 2-01 ity of tablet 00:00: [facility] meloxicam 2021-07 Yes as needed. Un [place] 15 mg 2-01 ity of tablet 00:00: Medical [place] meloxicam 2021-07 Yes as needed. Un becca 15 mg 2-01 ity of tablet 00:00: Medical Branch meloxicam 2021-07 Yes as needed. Un [place] 15 mg 2-01 ity of tablet 00:00: [facility] Branch meloxicam 2021-07 Yes as needed. Un [place] 15 mg 2-01 ity of tablet 00:00: [facility] Branch meloxicam 2021-07 Yes as needed. Un [place] 15 mg 2-01 ity of tablet 00:00: [facility] Branch meloxicam 2021-07 Yes as needed. Un [place] 15 mg 2-01 ity of tablet 00:00: [facility] Branch meloxicam 2021-07 Yes as needed. Un [place] 15 mg 2-01 ity of tablet 00:00: [facility] Branch meloxicam 2021-07 Yes as needed. Un [place] 15 mg 2-01 ity of tablet 00:00: [place] [facility] Branch VALSARTAN 2021-07 Yes 160mg Take 160 Uni vers ORAL 1-08 mg by ity of 14:45: mouth. [address] Branch cetirizine 2021-07 Yes Take by Univ ers HCl (ZYRTEC 1-08 mouth. ity of ORAL) 14:45: [address] Branch tamsulosin 2021-07 Yes Take by Univ ers HCl (FLOMAX 1-08 mouth. ity of ORAL) 14:45: [address] Branch furosemide 2021-07 Yes Take by Univ ers (LASIX 1-08 mouth. ity of ORAL) 14:45: [address] Branch metoprolol 2021-07 Yes 25mg Take 25 mg U nivers succinate 1-08 by mouth ity of XL 25 mg 24 14:45: in the [facility] s hr tablet 08 morning. Medica l Branch aspirin 2021-07 Yes 81mg Take 81 mg Univ ers (ADULT LOW 1-08 by mouth ity o f DOSE 14:45: in the [place] ASPIRIN) 81 08 morning. Medi atul mg EC Branch tablet VALSARTAN 2021-07 Yes 160mg Take 160 Uni vers ORAL 1-08 mg by ity of 14:45: mouth. [address] Branch cetirizine 2021-07 Yes Take by Univ ers HCl (ZYRTEC 1-08 mouth. ity of ORAL) 14:45: [address] Branch tamsulosin 2021-07 Yes Take by Univ ers HCl (FLOMAX 1-08 mouth. ity of ORAL) 14:45: [place] [address] Medical Branch furosemide 2021-07 Yes Take by Univ ers (LASIX 1-08 mouth. ity of ORAL) 14:45: [place] [address] Medical Branch metoprolol 2021-07 Yes 25mg Take 25 mg U nivers succinate 1-08 by mouth ity of XL 25 mg 24 14:45[place] 08 morning. [facility] Branch aspirin 2021-07 Yes 81mg Take 81 mg Univ ers (ADULT LOW 1-08 by mouth ity o f DOSE 14:45: in the [place] ASPIRIN) 81 08 morning. Medi atul mg EC Branch tablet VALSARTAN 2021-07 Yes 160mg Take 160 Uni vers ORAL 1-08 mg by ity of 14:45: mouth. [place] [address] Medical Branch cetirizine 2021-07 Yes Take by Univ ers HCl (ZYRTEC 1-08 mouth. ity of ORAL) 14:45: [place] [address] Medical Branch tamsulosin 2021-07 Yes Take by Univ ers HCl (FLOMAX 1-08 mouth. ity of ORAL) 14:45: [place] [address] Medical Branch furosemide 2021-07 Yes Take by Univ ers (LASIX 1-08 mouth. ity of ORAL) 14:45: [place] [address] Medical Branch metoprolol 2021-07 Yes 25mg Take 25 mg U nivers succinate 1-08 by mouth ity of XL 25 mg 24 14:45: [place] 08 morning. Med[place] Branch aspirin 2021-07 Yes 81mg Take 81 mg Univ ers (ADULT LOW 1-08 by mouth ity o f DOSE 14:45: in the [place] ASPIRIN) 81 08 morning. Medi atul mg EC Branch tablet VALSARTAN 2021-07 Yes 160mg Take 160 Uni vers ORAL 1-08 mg by ity of 14:45: mouth. [place] [address] Medical Branch cetirizine 2021-07 Yes Take by Univ ers HCl (ZYRTEC 1-08 mouth. ity of ORAL) 14:45: [place] [address] Medical Branch tamsulosin 2021-07 Yes Take by Univ ers HCl (FLOMAX 1-08 mouth. ity of ORAL) 14:45: [place] [address] Medical Branch furosemide 2021-07 Yes Take by Uni vers (LASIX 1-08 mouth. ity of ORAL) 14:45: [place] [address] Medical Branch metoprolol 2021-07 Yes 25mg Take 25 mg U nivers succinate 1-08 by mouth ity of XL 25 mg 24 14:45: [place] 08 morning. Med[place] Branch aspirin 2021-07 Yes 81mg Take 81 mg Univ ers (ADULT LOW 1-08 by mouth ity o f DOSE 14:45: in the [place] ASPIRIN) 81 08 morning. Medi atul mg EC Branch tablet VALSARTAN 2021-07 Yes 160mg Take 160 Uni vers ORAL 1-08 mg by ity of 14:45: mouth. Medical Branch cetirizine 2021-07 Yes Take by Univ ers HCl (ZYRTEC 1-08 mouth. ity of ORAL) 14:45: Medical Branch tamsulosin 2021-07 Yes Take by Univ ers HCl (FLOMAX 1-08 mouth. ity of ORAL) 14:45: Medical Branch furosemide 2021-07 Yes Take by Univ ers (LASIX 1-08 mouth. ity of ORAL) 14:45: Medical Branch metoprolol 2021-07 Yes 25mg Take 25 mg U nivers succinate 1-08 by mouth ity of XL 25 mg 24 14:45: [place] 08 morning. Med[place] Branch aspirin 2021-07 Yes 81mg Take 81 mg Univ ers (ADULT LOW 1-08 by mouth ity o f DOSE 14:45: in the [place] ASPIRIN) 81 08 morning. Medi atul mg EC Branch tablet VALSARTAN 2021-07 Yes 160mg Take 160 Uni vers ORAL 1-08 mg by ity of 14:45: mouth. Medical Branch cetirizine 2021-07 Yes Take by Univ ers HCl (ZYRTEC 1-08 mouth. ity of ORAL) 14:45: Medical Branch tamsulosin 2021-07 Yes Take by Univ ers HCl (FLOMAX 1-08 mouth. ity of ORAL) 14:45: Medical Branch furosemide 2021-07 Yes Take by Univ ers (LASIX 1-08 mouth. ity of ORAL) 14:45: Medical Branch metoprolol 2021-07 Yes 25mg Take 25 mg U nivers succinate 1-08 by mouth ity of XL 25 mg 24 14:45: [place] 08 morning. Med[place] Branch aspirin 2021-07 Yes 81mg Take 81 mg Univ ers (ADULT LOW 1-08 by mouth ity o f DOSE 14:45: in the [place] ASPIRIN) 81 08 morning. Medi atul mg EC Branch tablet VALSARTAN 2021-07 Yes 160mg Take 160 Uni vers ORAL 1-08 mg by ity of 14:45: mouth. [address] Branch cetirizine 2021-07 Yes Take by Univ ers HCl (ZYRTEC 1-08 mouth. ity of ORAL) 14:45: [address] Branch tamsulosin 2021-07 Yes Take by Univ ers HCl (FLOMAX 1-08 mouth. ity of ORAL) 14:45: [address] furosemide 2021-07 Yes Take by Univ ers (LASIX 1-08 mouth. ity of ORAL) 14:45: [address] aspirin 2021-07 Yes 81mg Take 81 mg Univ ers (ADULT LOW 1-08 by mouth ity o f DOSE 14:45: in the [place] ASPIRIN) 81 08 morning. Medi atul mg EC Branch tablet VALSARTAN 2021-07 Yes 160mg Take 160 Uni vers ORAL 1-08 mg by ity of 14:45: mouth. [address] Branch cetirizine 2021-07 Yes Take by Univ ers HCl (ZYRTEC 1-08 mouth. ity of ORAL) 14:45: [address] Branch tamsulosin 2021-07 Yes Take by Univ ers HCl (FLOMAX 1-08 mouth. ity of ORAL) 14:45: [address] furosemide 2021-07 Yes Take by Univ ers (LASIX 1-08 mouth. ity of ORAL) 14:45: [address] aspirin 2021-07 Yes 81mg Take 81 mg Univ ers (ADULT LOW 1-08 by mouth ity o f DOSE 14:45: in the [place] ASPIRIN) 81 08 morning. Medi atul mg EC Branch tablet VALSARTAN 2021-07 Yes 160mg Take 160 Uni vers ORAL 1-08 mg by ity of 14:45: mouth. [address] Branch cetirizine 2021-07 Yes Take by Univ ers HCl (ZYRTEC 1-08 mouth. ity of ORAL) 14:45: [address] Branch tamsulosin 2021-07 Yes Take by Univ ers HCl (FLOMAX 1-08 mouth. ity of ORAL) 14:45: [place] [address] Medical Branch furosemide 2021-07 Yes Take by Univ ers (LASIX 1-08 mouth. ity of ORAL) 14:45: [address] Branch aspirin 2021-07 Yes 81mg Take 81 mg Univ ers (ADULT LOW 1-08 by mouth ity o f DOSE 14:45: in the [place] ASPIRIN) 81 08 morning. Medi atul mg EC Branch tablet VALSARTAN 2021-07 Yes 160mg Take 160 Uni vers ORAL 1-08 mg by ity of 14:45: mouth. [place] [address] Medical Branch cetirizine 2021-07 Yes Take by Univ ers HCl (ZYRTEC 1-08 mouth. ity of ORAL) 14:45: [place] [address] Medical Branch tamsulosin 2021-07 Yes Take by Univ ers HCl (FLOMAX 1-08 mouth. ity of ORAL) 14:45: [address] Branch furosemide 2021-07 Yes Take by Univ ers (LASIX 1-08 mouth. ity of ORAL) 14:45: [address] aspirin 2021-07 Yes 81mg Take 81 mg Univ ers (ADULT LOW 1-08 by mouth ity o f DOSE 14:45: in the [place] ASPIRIN) 81 08 morning. Medi atul mg EC Branch tablet VALSARTAN 2021-07 Yes 160mg Take 160 Uni vers ORAL 1-08 mg by ity of 14:45: mouth. [address] Branch cetirizine 2021-07 Yes Take by Univ ers HCl (ZYRTEC 1-08 mouth. ity of ORAL) 14:45: [address] Branch tamsulosin 2021-07 Yes Take by Univ ers HCl (FLOMAX 1-08 mouth. ity of ORAL) 14:45: [place] [address] Medical Branch furosemide 2021-07 Yes Take by Univ ers (LASIX 1-08 mouth. ity of ORAL) 14:45: [address] Branch aspirin 2021-07 Yes 81mg Take 81 mg Univ ers (ADULT LOW 1-08 by mouth ity o f DOSE 14:45: in the [place] ASPIRIN) 81 08 morning. Medi atul mg EC Branch tablet VALSARTAN 2021-07 Yes 160mg Take 160 Uni vers ORAL 1-08 mg by ity of 14:45: mouth. [address] Branch cetirizine 2021-07 Yes Take by Univ ers HCl (ZYRTEC 1-08 mouth. ity of ORAL) 14:45: [address] Branch tamsulosin 2021-07 Yes Take by Univ ers HCl (FLOMAX 1-08 mouth. ity of ORAL) 14:45: [address] Branch furosemide 2021-07 Yes Take by Univ ers (LASIX 1-08 mouth. ity of ORAL) 14:45: [address] aspirin 2021-07 Yes 81mg Take 81 mg Univ ers (ADULT LOW 1-08 by mouth ity o f DOSE 14:45: in the [place] ASPIRIN) 81 08 morning. Medi atul mg EC Branch tablet VALSARTAN 2021-07 Yes 160mg Take 160 Uni vers ORAL 1-08 mg by ity of 14:45: mouth. [address] Branch cetirizine 2021-07 Yes Take by Univ ers HCl (ZYRTEC 1-08 mouth. ity of ORAL) 14:45: [address] Branch tamsulosin 2021-07 Yes Take by Univ ers HCl (FLOMAX 1-08 mouth. ity of ORAL) 14:45: [address] furosemide 2021-07 Yes Take by Univ ers (LASIX 1-08 mouth. ity of ORAL) 14:45: [address] aspirin 2021-07 Yes 81mg Take 81 mg Univ ers (ADULT LOW 1-08 by mouth ity o f DOSE 14:45: in the [place] ASPIRIN) 81 08 morning. Medi atul mg EC Branch tablet VALSARTAN 2021-07 Yes 160mg Take 160 Uni vers ORAL 1-08 mg by ity of 14:45: mouth. [address] Branch cetirizine 2021-07 Yes Take by Univ ers HCl (ZYRTEC 1-08 mouth. ity of ORAL) 14:45: [address] Branch tamsulosin 2021-07 Yes Take by Univ ers HCl (FLOMAX 1-08 mouth. ity of ORAL) 14:45: [address] furosemide 2021-07 Yes Take by Univ ers (LASIX 1-08 mouth. ity of ORAL) 14:45: [address] aspirin 2021-07 Yes 81mg Take 81 mg Univ ers (ADULT LOW 1-08 by mouth ity o f DOSE 14:45: in the [place] ASPIRIN) 81 08 morning. Medi atul mg EC Branch tablet VALSARTAN 2021-07 Yes 160mg Take 160 Uni vers ORAL 1-08 mg by ity of 14:45: mouth. [address] Branch cetirizine 2021-07 Yes Take by Univ ers HCl (ZYRTEC 1-08 mouth. ity of ORAL) 14:45: [address] Branch tamsulosin 2021-07 Yes Take by Univ ers HCl (FLOMAX 1-08 mouth. ity of ORAL) 14:45: [address] Branch furosemide 2021-07 Yes Take by Univ ers (LASIX 1-08 mouth. ity of ORAL) 14:45: [address] aspirin 2021-07 Yes 81mg Take 81 mg Univ ers (ADULT LOW 1-08 by mouth ity o f DOSE 14:45: in the [place] ASPIRIN) 81 08 morning. Medi atul mg EC Branch tablet VALSARTAN 2021-07 Yes 160mg Take 160 Uni vers ORAL 1-08 mg by ity of 14:45: mouth. [address] cetirizine 2021-07 Yes Take by Univ ers HCl (ZYRTEC 1-08 mouth. ity of ORAL) 14:45: [address] Branch tamsulosin 2021-07 Yes Take by Univ ers HCl (FLOMAX 1-08 mouth. ity of ORAL) 14:45: [address] furosemide 2021-07 Yes Take by Univ ers (LASIX 1-08 mouth. ity of ORAL) 14:45: [address] aspirin 2021-07 Yes 81mg Take 81 mg Univ ers (ADULT LOW 1-08 by mouth ity o f DOSE 14:45: in the [place] ASPIRIN) 81 08 morning. Medi atul mg EC Branch tablet VALSARTAN 2021-07 Yes 160mg Take 160 Uni vers ORAL 1-08 mg by ity of 14:45: mouth. [address] Branch cetirizine 2021-07 Yes Take by Univ ers HCl (ZYRTEC 1-08 mouth. ity of ORAL) 14:45: [address] Branch tamsulosin 2021-07 Yes Take by Univ ers HCl (FLOMAX 1-08 mouth. ity of ORAL) 14:45: [address] furosemide 2021-07 Yes Take by Univ ers (LASIX 1-08 mouth. ity of ORAL) 14:45: [address] aspirin 2021-07 Yes 81mg Take 81 mg Univ ers (ADULT LOW 1-08 by mouth ity o f DOSE 14:45: in the [place] ASPIRIN) 81 08 morning. Medi atul mg EC Branch tablet VALSARTAN 2021-07 Yes 160mg Take 160 Uni vers ORAL 1-08 mg by ity of 14:45: mouth. [address] cetirizine 2021-07 Yes Take by Univ ers HCl (ZYRTEC 1-08 mouth. ity of ORAL) 14:45: [address] Branch tamsulosin 2021-07 Yes Take by Univ ers HCl (FLOMAX 1-08 mouth. ity of ORAL) 14:45: [address] furosemide 2021-07 Yes Take by Univ ers (LASIX 1-08 mouth. ity of ORAL) 14:45: [address] aspirin 2021-07 Yes 81mg Take 81 mg Univ ers (ADULT LOW 1-08 by mouth ity o f DOSE 14:45: in the [place] ASPIRIN) 81 08 morning. Medi atul mg EC Branch tablet VALSARTAN 2021-07 Yes 160mg Take 160 Uni vers ORAL 1-08 mg by ity of 14:45: mouth. [address] Branch cetirizine 2021-07 Yes Take by Univ ers HCl (ZYRTEC 1-08 mouth. ity of ORAL) 14:45: [address] Branch tamsulosin 2021-07 Yes Take by Univ ers HCl (FLOMAX 1-08 mouth. ity of ORAL) 14:45: [address] furosemide 2021-07 Yes Take by Univ ers (LASIX 1-08 mouth. ity of ORAL) 14:45: [address] aspirin 2021-07 Yes 81mg Take 81 mg Univ ers (ADULT LOW 1-08 by mouth ity o f DOSE 14:45: in the [place] ASPIRIN) 81 08 morning. Medi atul mg EC Branch tablet VALSARTAN 2021-07 Yes 160mg Take 160 Uni vers ORAL 1-08 mg by ity of 14:45: mouth. [address] cetirizine 2021-07 Yes Take by Univ ers HCl (ZYRTEC 1-08 mouth. ity of ORAL) 14:45: [address] Branch tamsulosin 2021-07 Yes Take by Univ ers HCl (FLOMAX 1-08 mouth. ity of ORAL) 14:45: [place] 08 Medical Branch furosemide 2021-07 Yes Take by Univ ers (LASIX 1-08 mouth. ity of ORAL) 14:45: [place] [address] Medical [place] aspirin 2021-07 Yes 81mg Take 81 mg Univ ers (ADULT LOW 1-08 by mouth ity o f DOSE 14:45: in the [place] ASPIRIN) 81 08 morning. Medi atul mg EC Branch tablet VALSARTAN 2021-07 Yes 160mg Take 160 Uni vers ORAL 1-08 mg by ity of 14:45: mouth. [place] [address] Medical Branch cetirizine 2021-07 Yes Take by Univ ers HCl (ZYRTEC 1-08 mouth. ity of ORAL) 14:45: [place] [address] Medical Branch tamsulosin 2021-07 Yes Take by Univ ers HCl (FLOMAX 1-08 mouth. ity of ORAL) 14:45: [address] furosemide 2021-07 Yes Take by Univ ers (LASIX 1-08 mouth. ity of ORAL) 14:45: [address] aspirin 2021-07 Yes 81mg Take 81 mg Univ ers (ADULT LOW 1-08 by mouth ity o f DOSE 14:45: in the [place] ASPIRIN) 81 08 morning. Medi atul mg EC Branch tablet VALSARTAN 2021-07 Yes 160mg Take 160 Uni vers ORAL 1-08 mg by ity of 14:45: mouth. [address] Branch cetirizine 2021-07 Yes Take by Univ ers HCl (ZYRTEC 1-08 mouth. ity of ORAL) 14:45: [address] Branch tamsulosin 2021-07 Yes Take by Univ ers HCl (FLOMAX 1-08 mouth. ity of ORAL) 14:45: [address] furosemide 2021-07 Yes Take by Univ ers (LASIX 1-08 mouth. ity of ORAL) 14:45: [address] Branch metoprolol 2021-07 Yes 25mg Take 25 mg U nivers succinate 1-08 by mouth ity of XL 25 mg 24 14:45: in the [facility] s hr tablet 08 morning. Medica l Branch aspirin 2021-07 Yes 81mg Take 81 mg Univ ers (ADULT LOW 1-08 by mouth ity o f DOSE 14:45: in the [place] ASPIRIN) 81 08 morning. Medi atul mg EC Branch tablet valsartan 2021-07 Yes 160mg QD Take 160 Met hodi (DIOVAN) 0-[address] 320 MG 16:41: mouth [facility] tablet 18 daily. l meloxicam 2021-07- No 15mg QD Take 1 Metho di (Mobic) 15 0-04 10-05 tablet (15 st mg tablet 00:00: 04:59 mg total) [facility] 00 :00 by mouth l daily. methylPREDN methylPREDN 2021- No QD methylPRED ISolone 4 ISolone 4 02-10 NISolone 4 MG MG 00:00: 00:00 MG 00 :00 methylPREDN methylPREDN 2021- No QD methylPRED ISolone 4 ISolone 4 02-10 NISolone 4 MG MG 00:00: 00:00 MG 00 :00 Albuterol Albuterol No 2{puffs Albuterol Sulfate HFA Sulfate HFA 1-21 } Sulfate 108 (90 108 (90 00:00: HFA 108 Base) Base) 00 (90 Base) MCG/ACT MCG/ACT MCG/ACT Albuterol Albuterol No 2{puffs Albuterol Sulfate HFA Sulfate HFA 1-21 } Sulfate 108 (90 108 (90 00:00: HFA 108 Base) Base) 00 (90 Base) MCG/ACT MCG/ACT MCG/ACT Azithromyci Azithromyci 2021- No QD Azithromyc n 250 MG n 250 MG 08-19 in 250 MG 00:00: 00:00 00 :00 predniSONE predniSONE 2021- No QD predniSONE 10 MG 10 MG 08-19 10 MG 00:00: 00:00 00 :00 predniSONE predniSONE 2020-07- No QD predniSONE 10 MG 10 MG 09-0615 10 MG 00:00: 00:00 :00 predniSONE predniSONE 2020-07- No QD predniSONE 10 MG 10 MG 09-0615 10 MG 00:00: 00:00 00 :00 Albuterol Albuterol Yes [place] 2 puffs Common Sulfate HFA Sulfate HFA 8-07 S pirit 00:00: - [facility] Albuterol Albuterol No 2{puffs Albuterol Sulfate HFA Sulfate HFA 8-07 } Sulfate 108 (90 108 (90 00:00: HFA 108 Base) Base) 00 (90 Base) MCG/ACT MCG/ACT MCG/ACT Albuterol Albuterol 2020-0 No 2{puffs Albuterol Sulfate HFA Sulfate HFA 8-07 } Sulfate 108 (90 108 (90 00:00: HFA 108 Base) Base) 00 (90 Base) MCG/ACT MCG/ACT MCG/ACT Albuterol Albuterol 2020-0 No 2{puffs Albuterol Sulfate HFA Sulfate HFA 8-07 } Sulfate 108 (90 108 (90 00:00: HFA 108 Base) Base) 00 (90 Base) MCG/ACT MCG/ACT MCG/ACT Albuterol Albuterol 2020-0 No 2{puffs Albuterol Sulfate HFA Sulfate HFA 8-07 } Sulfate 108 (90 108 (90 00:00: HFA 108 Base) Base) 00 (90 Base) MCG/ACT MCG/ACT MCG/ACT Albuterol Albuterol 2020-0 No 2{puffs Albuterol Sulfate HFA Sulfate HFA 8-07 } Sulfate 108 (90 108 (90 00:00: HFA 108 Base) Base) 00 (90 Base) MCG/ACT MCG/ACT MCG/ACT Albuterol Albuterol 2020-0 No 2{puffs Albuterol Sulfate HFA Sulfate HFA 8-07 } Sulfate 108 (90 108 (90 00:00: HFA 108 Base) Base) 00 (90 Base) MCG/ACT MCG/ACT MCG/ACT Albuterol Albuterol 2020-0 No 2{puffs Albuterol Sulfate HFA Sulfate HFA 8-07 } Sulfate 108 (90 108 (90 00:00: HFA 108 Base) Base) 00 (90 Base) MCG/ACT MCG/ACT MCG/ACT Albuterol Albuterol 2020-0 No 2{puffs Albuterol Sulfate HFA Sulfate HFA 8-07 } Sulfate 108 (90 108 (90 00:00: HFA 108 Base) Base) 00 (90 Base) MCG/ACT MCG/ACT MCG/ACT Albuterol Albuterol 2020-0 No 2{puffs Albuterol Sulfate HFA Sulfate HFA 8-07 } Sulfate 108 (90 108 (90 00:00: HFA 108 Base) Base) 00 (90 Base) MCG/ACT MCG/ACT MCG/ACT Albuterol Albuterol 2020-0 No 2{puffs Albuterol Sulfate HFA Sulfate HFA 8-07 } Sulfate 108 (90 108 (90 00:00: HFA 108 Base) Base) 00 (90 Base) MCG/ACT MCG/ACT MCG/ACT Albuterol Albuterol 2020-0 No 2{puffs Albuterol Sulfate HFA Sulfate HFA 8-07 } Sulfate 108 (90 108 (90 00:00: HFA 108 Base) Base) 00 (90 Base) MCG/ACT MCG/ACT MCG/ACT PredniSONE PredniSONE 2020-0 2020- No [facility] [place] 2 tablets Common 03-05 08-17 dailyx 5 Spirit 00:00: 00:00 days then - [facility] daily x 5 [facility] Metoprolol Metoprolol 2020-0 Yes Na [place] as Common Succinate Succinate 2-10 directed S pirit 00:00: - [facility] Metoprolol Metoprolol 2020-0 No QD Metoprolol Succinate Succinate 2-10 Succinate 50 MG 50 MG 00:00: 50 MG 00 Metoprolol Metoprolol 2020-0 No QD Metoprolol Succinate Succinate 2-10 Succinate 50 MG 50 MG 00:00: 50 MG 00 Metoprolol Metoprolol 2020-0 No QD Metoprolol Succinate Succinate 2-10 Succinate 50 MG 50 MG 00:00: 50 MG 00 Kenalog Kenalog 2019-0 No 40mg Common (Triamcinol (Triamcinol 8-23 S pirit one) one) 00:00: - [facility] Kenalog Kenalog 2019-0 No 40mg Common (Triamcinol (Triamcinol 8-23 S pirit one) one) 00:00: - [facility] Kenalog Kenalog 2019-0 No 40mg Common (Triamcinol (Triamcinol 8-23 S pirit one) one) 00:00: - [facility] Kenalog Kenalog 2019-0 No 40mg Common (Triamcinol (Triamcinol 8-23 S pirit one) one) 00:00: - [facility] rosuvastati 2018-0 Yes Take by Uni vers n calcium 8-13 mouth. ity of (CRESTOR 13:55: [place] ORAL) [address] [place] [address] VALSARTAN 2019 Yes Take by Unive rs ORAL 8-13 mouth. ity of 13:55: [address] cetirizine Yes Take by Univ ers HCl (ZYRTEC 8-13 mouth. ity of ORAL) 13:55: [address] tamsulosin Yes Take by Univ ers HCl (FLOMAX 8-13 mouth. ity of ORAL) 13:55: [address] furosemide Yes Take by Univ ers (LASIX 8-13 mouth. ity of ORAL) 13:55: [address] rosuvastati Yes Take by Uni vers n calcium 8-13 mouth. ity of (CRESTOR 13:55: [place] ORAL) [address] [place] [address] VALSARTAN Yes Take by Unive rs ORAL 8-13 mouth. ity of 13:55: [address] cetirizine Yes Take by Univ ers HCl (ZYRTEC 8-13 mouth. ity of ORAL) 13:55: [address] tamsulosin Yes Take by Univ ers HCl (FLOMAX 8-13 mouth. ity of ORAL) 13:55: [address] furosemide Yes Take by Univ ers (LASIX 8-13 mouth. ity of ORAL) 13:55: [address] rosuvastati Yes Take by Uni vers n calcium 8-13 mouth. ity of (CRESTOR 13:55: [place] ORAL) [address] [place] [address] VALSARTAN Yes Take by Unive rs ORAL 8-13 mouth. ity of 13:55: [address] cetirizine Yes Take by Univ ers HCl (ZYRTEC 8-13 mouth. ity of ORAL) 13:55: [address] tamsulosin 2019 Yes Take by Univ ers HCl (FLOMAX 8-13 mouth. ity of ORAL) 13:55: [address] furosemide Yes Take by Univ ers (LASIX 8-13 mouth. ity of ORAL) 13:55: [address] rosuvastati Yes Take by Uni vers n calcium 8-13 mouth. ity of (CRESTOR 13:55: [place] ORAL) 11 [facility] Branch VALSARTAN Yes Take by Unive rs ORAL 8-13 mouth. ity of 13:55: [place] [address] Medical Branch cetirizine Yes Take by Univ ers HCl (ZYRTEC 8-13 mouth. ity of ORAL) 13:55: [place] [address] Medical Branch tamsulosin Yes Take by Univ ers HCl (FLOMAX 8-13 mouth. ity of ORAL) 13:55: [place] [address] Medical Branch furosemide Yes Take by Univ ers (LASIX 8-13 mouth. ity of ORAL) 13:55: [place] [address] Medical Branch rosuvastati Yes Take by Uni vers n calcium 8-13 mouth. ity of (CRESTOR 13:55: [place] ORAL) [address] [place] [address] Branch VALSARTAN Yes Take by Unive rs ORAL 8-13 mouth. ity of 13:55: [address] Branch cetirizine Yes Take by Univ ers HCl (ZYRTEC 8-13 mouth. ity of ORAL) 13:55: [address] Branch tamsulosin Yes Take by Univ ers HCl (FLOMAX 8-13 mouth. ity of ORAL) 13:55: [address] Branch furosemide Yes Take by Univ ers (LASIX 8-13 mouth. ity of ORAL) 13:55: [place] [address] [facility] Branch rosuvastati Yes Take by Uni vers n calcium 8-13 mouth. ity of (CRESTOR 08:55: [place] ORAL) 11 [facility] rosuvastati Yes Take by Uni vers n calcium 8-13 mouth. ity of (CRESTOR 08:55: [place] ORAL) 11 [facility] rosuvastati Yes Take by Uni vers n calcium 8-13 mouth. ity of (CRESTOR 08:55: [place] ORAL) 11 [facility] rosuvastati Yes Take by Uni vers n calcium 8-13 mouth. ity of (CRESTOR 08:55: [place] ORAL) 11 Medical Branch rosuvastati Yes Take by Uni vers n calcium 8-13 mouth. ity of (CRESTOR 08:55: [place] ORAL) 11 [facility] rosuvastati Yes Take by Uni vers n calcium 8-13 mouth. ity of (CRESTOR 08:55: [place] [facility]) 11 [facility] rosuvastati 2019-0 Yes Take by Uni vers n calcium 8-13 mouth. ity of (CRESTOR 08:55: [place] [facility]) 11 [facility] rosuvastati 2019-0 Yes Take by Uni vers n calcium 8-13 mouth. ity of (CRESTOR 08:55: [place] [facility]) 11 [facility] rosuvastati 2019-0 Yes Take by Uni vers n calcium 8-13 mouth. ity of (CRESTOR 08:55: [place] [facility]) 11 [facility] rosuvastati 2019-0 Yes Take by Uni vers n calcium 8-13 mouth. ity of (CRESTOR 08:55: [place] [facility]) 11 [facility] rosuvastati 2019-0 Yes Take by Uni vers n calcium 8-13 mouth. ity of (CRESTOR 08:55: [place] [facility]) 11 [facility] rosuvastati 2019-0 Yes Take by Uni vers n calcium 8-13 mouth. ity of (CRESTOR 08:55: [place] [facility]) 11 [facility] Branch rosuvastati 2018-0 Yes Take by Uni vers n calcium 8-13 mouth. ity of (CRESTOR 08:55: [place] [facility]) 11 [facility] rosuvastati 0 Yes Take by Uni vers n calcium 8-13 mouth. ity of (CRESTOR 08:55: [place] [facility]) 11 [facility] rosuvastati 2018-0 Yes Take by Uni vers n calcium 8-13 mouth. ity of (CRESTOR 08:55: [place] [facility]) 11 [facility] rosuvastati 2019-0 Yes Take by Uni vers n calcium 8-13 mouth. ity of (CRESTOR 08:55: [place] [facility]AL) 11 [facility] rosuvastati 2019-0 Yes Take by Uni vers n calcium 8-13 mouth. ity of (CRESTOR 08:55: [place] [facility]AL) 11 [facility] rosuvastati 2019-0 Yes Take by Uni vers n calcium 8-13 mouth. ity of (CRESTOR 08:55: [place] [facility]AL) 11 [facility] rosuvastati 2019-0 Yes Take by Uni vers n calcium 8-13 mouth. ity of (CRESTOR 08:55: [place] [facility]AL) 11 [facility] Branch rosuvastati 2019-0 Yes Take by Uni vers n calcium 8-13 mouth. ity of (CRESTOR 08:55: [place] [facility]AL) 11 [facility] rosuvastati Yes Take by Uni vers n calcium 8-13 mouth. ity of (CRESTOR 08:55: [place] ORAL) [address] [place] [address] Branch VALSARTAN Yes Take by Unive rs ORAL 8-13 mouth. ity of 08:55: [address] Branch cetirizine Yes Take by Univ ers HCl (ZYRTEC 8-13 mouth. ity of ORAL) 08:55: [address] Branch tamsulosin Yes Take by Univ ers HCl (FLOMAX 8-13 mouth. ity of ORAL) 08:55: [address] furosemide Yes Take by Univ ers (LASIX 8-13 mouth. ity of ORAL) 08:55: [address] Branch rosuvastati Yes Take by Uni vers n calcium 8-13 mouth. ity of (CRESTOR 08:55: [place] ORAL) [address] [place] [address] Branch rosuvastati Yes Take by Uni vers n calcium 8-13 mouth. ity of (CRESTOR 08:55: [place] ORAL) [address] [place] [address] Branch Montelukast Montelukast Yes Na Cortes 1 tablet Common Sodium Sodium 1-21 in the Spirit 00:00: evening - [facility] Medrol Medrol Yes Na Cortes as Common 1-21 directed Spirit 00:00: with food - [facility] Medrol 4 MG Medrol 4 MG No QD Medrol 4 1-21 MG 00:00: 00 Medrol 4 MG Medrol 4 MG No QD Medrol 4 1-21 MG 00:00: 00 Medrol 4 MG Medrol 4 MG No QD Medrol 4 1-21 MG 00:00: 00 Medrol 4 MG Medrol 4 MG No QD Medrol 4 1-21 MG 00:00: 00 Medrol 4 MG Medrol 4 MG No QD Medrol 4 1-21 MG 00:00: 00 Medrol 4 MG Medrol 4 MG No QD Medrol 4 1-21 MG 00:00: 00 Medrol 4 MG Medrol 4 MG No QD Medrol 4 1-21 MG 00:00: 00 Medrol 4 MG Medrol 4 MG 2019-0 No QD Medrol 4 1-21 MG 00:00: 00 Medrol 4 MG Medrol 4 MG 2019-0 No QD Medrol 4 1-21 MG 00:00: 00 Medrol 4 MG Medrol 4 MG 2019-0 No QD Medrol 4 1-21 MG 00:00: 00 Medrol 4 MG Medrol 4 MG 2019-0 No QD Medrol 4 1-21 MG 00:00: 00 Kenalog Kenalog 2019-0 No 40mg Common (Triamcinol (Triamcinol 1-21 S pirit one) one) 00:00: - [facility] Medrol 4 MG Medrol 4 MG 2019-0 No QD Medrol 4 1-21 MG 00:00: 00 Kenalog Kenalog 2019-0 No 40mg Common (Triamcinol (Triamcinol 1-21 S pirit one) one) 00:00: - [facility] Medrol 4 MG Medrol 4 MG 2018-0 No QD Medrol 4 1-21 MG 00:00: 00 Kenalog Kenalog 2019-0 No 40mg Common (Triamcinol (Triamcinol 1-21 S pirit one) one) 00:00: - [facility] Medrol 4 MG Medrol 4 MG 2019-0 No QD Medrol 4 1-21 MG 00:00: 00 Kenalog Kenalog 2018-0 No 40mg Common (Triamcinol (Triamcinol 1-21 S pirit one) one) 00:00: - [facility] Medrol 4 MG Medrol 4 MG 2018-0 No QD Medrol 4 1-21 MG 00:00: 00 Montelukast Montelukast 2018-0 No 1{table QD Montelukas Sodium 10 Sodium 10 - t_in_th t Sodium MG MG 00:00: e_eveni 10 MG 00 ng} acetaminoph Yes Take by Met chalino en (TYLENOL 01-[address] [facility] 16:07: [facility] STRENGTH 45 [...] daily [facility]ospita capsule 45 before l breakfast. rosuvastati Yes 10mg QD Take 10 mg [facility] (CRESTOR) 6-[address] 10 MG 16:07: daily. Hospita tablet 45 l Ventolin Ventolin Yes Na Cortes 2 puffs as Common HFA HFA 3-27 needed Spirit 00:00: - [facility] Ventolin Ventolin No 2{puffs QID Ventolin HFA 108 (90 HFA 108 (90 3-27 _as_nee HFA 108 Base) Base) 00:00: ded} (90 Base) MCG/ACT MCG/ACT 00 MCG/ACT Ventolin Ventolin No 2{puffs QID Ventolin HFA 108 (90 HFA 108 (90 3-27 _as_nee HFA 108 Base) Base) 00:00: ded} (90 Base) MCG/ACT MCG/ACT 00 MCG/ACT Ventolin Ventolin No 2{puffs QID Ventolin HFA 108 (90 HFA 108 (90 3-27 _as_nee HFA 108 Base) Base) 00:00: ded} (90 Base) MCG/ACT MCG/ACT 00 MCG/ACT Ventolin Ventolin No 2{puffs QID Ventolin HFA 108 (90 HFA 108 (90 3-27 _as_nee HFA 108 Base) Base) 00:00: ded} (90 Base) MCG/ACT MCG/ACT 00 MCG/ACT Ventolin Ventolin No 2{puffs QID Ventolin HFA 108 (90 HFA 108 (90 3-27 _as_nee HFA 108 Base) Base) 00:00: ded} (90 Base) MCG/ACT MCG/ACT 00 MCG/ACT Ventolin Ventolin No 2{puffs QID Ventolin HFA 108 (90 HFA 108 (90 3-27 _as_nee HFA 108 Base) Base) 00:00: ded} (90 Base) MCG/ACT MCG/ACT 00 MCG/ACT Ventolin Ventolin 2018-0 No 2{puffs QID Ventolin HFA 108 (90 HFA 108 (90 3-27 _as_nee HFA 108 Base) Base) 00:00: ded} (90 Base) MCG/ACT MCG/ACT 00 MCG/ACT Ventolin Ventolin 2017-0 No 2{puffs QID Ventolin HFA 108 (90 HFA 108 (90 3-27 _as_nee HFA 108 Base) Base) 00:00: ded} (90 Base) MCG/ACT MCG/ACT 00 MCG/ACT Ventolin Ventolin 2017-0 No 2{puffs QID Ventolin HFA 108 (90 HFA 108 (90 3-27 _as_nee HFA 108 Base) Base) 00:00: ded} (90 Base) MCG/ACT MCG/ACT 00 MCG/ACT Ventolin Ventolin 2017-0 No 2{puffs QID Ventolin HFA 108 (90 HFA 108 (90 3-27 _as_nee HFA 108 Base) Base) 00:00: ded} (90 Base) MCG/ACT MCG/ACT 00 MCG/ACT Ventolin Ventolin 2017-0 No 2{puffs QID Ventolin HFA 108 (90 HFA 108 (90 3-27 _as_nee HFA 108 Base) Base) 00:00: ded} (90 Base) MCG/ACT MCG/ACT 00 MCG/ACT Ventolin Ventolin 2017-0 No 2{puffs QID Ventolin HFA 108 (90 HFA 108 (90 3-27 _as_nee HFA 108 Base) Base) 00:00: ded} (90 Base) MCG/ACT MCG/ACT 00 MCG/ACT Ventolin Ventolin 2017-0 No 2{puffs QID Ventolin HFA 108 (90 HFA 108 (90 3-27 _as_nee HFA 108 Base) Base) 00:00: ded} (90 Base) MCG/ACT MCG/ACT 00 MCG/ACT Ventolin Ventolin 2017-0 No 2{puffs QID Ventolin HFA 108 (90 HFA 108 (90 3-27 _as_nee HFA 108 Base) Base) 00:00: ded} (90 Base) MCG/ACT MCG/ACT 00 MCG/ACT Ventolin Ventolin 2018-0 No 2{puffs QID Ventolin HFA 108 (90 HFA 108 (90 3-27 _as_nee HFA 108 Base) Base) 00:00: ded} (90 Base) MCG/ACT MCG/ACT 00 MCG/ACT Flonase Flonase Yes Na Cortes 2 spray in Common each Spirit nostril [facility] Astelin Astelin Yes Na Cortes not Common defined [facility] Lasix Lasix Yes Na Cortes 1 tablet Common [facility] Zyrtec Zyrtec Yes Na Cortes 1 tablet Comm on Allergy Allergy [facility] Esomeprazol Esomeprazol Yes Na Cortes TAKE ONE Common e Magnesium e Magnesium CAPSULE BY [facility] EVERY DAY [facility] Lasix Lasix Yes Na Cortes 1 tablet Common [facility] Acidophilus Acidophilus Yes Na Cortes not Common defined [facility] Erythromyci Erythromyci Yes Na Cortes 1 Common n n applicatio [facility] n [facility] Tessalon Tessalon Yes Na Cortes 1 capsule Common Perles Perles as needed [facility] Zithromax Zithromax Yes Na Cortes not Co mmon defined [facility] Ambien Ambien Yes Na Cortes 1 tablet Comm on at bedtime [facility] Valsartan Valsartan Yes Na Cortes 1 tablet [facility] Nexium Nexium Yes Na Cortes 1 capsule Com mon [facility] Meclizine Meclizine Yes Na Cortes 1 tablet Common HCl HCl as needed [facility] Amlodipine Amlodipine Yes Na Cortes 1 tablet Common Besylate Besylate [facility] Aspir-81 Aspir-81 Yes Na Cortes 1 tablet Common [facility] Augmentin Augmentin Yes Na Cortes 1 tablet Common [facility] Scandia Scandia Yes Na Cortes 1 tablet Common as needed [facility] Cyclobenzap Cyclobenzap Yes Na Cortes 1 tablet Common rine HCl rine HCl as needed Sp [facility] Amlodipine Amlodipine Yes Na Cortes 1 tablet Common Besylate Besylate Spirit [facility] Hydrochloro Hydrochloro Yes Na Cortes 1 tablet Common thiazide thiazide in the Spiri t morning [facility] Crestor Crestor Yes Na Cortes TAKE 1 Comm on TABLET AT [facility] BEDTIME [facility] Zithromax Zithromax No Zithromax 500 MG 500 MG 500 MG Cyclobenzap Cyclobenzap No 1{table TID Cyclobenza rine HCl 10 rine HCl 10 t_as_ne kye HCl MG MG eded} 10 MG Ambien 5 MG Ambien 5 MG No 1{table QD Ambien 5 t_at_be MG dtime} Aspir-81 81 Aspir-81 81 No 1{table QD Aspir-81 MG MG t} 81 MG Montelukast Montelukast No 1{table QD Montelukas Sodium 10 Sodium 10 t_in_th t Sodium MG MG e_eveni 10 MG ng} Lasix 20 MG Lasix 20 MG No 1{table Lasix 20 t} MG NexIUM 20 NexIUM 20 No 1{capsu QD NexIUM 20 MG MG le} MG Scandia Scandia No 1{table QID Scandia 325-10 MG 325-10 MG t_as_ne 325-10 MG eded} Crestor 10 Crestor 10 No QD Crestor 10 MG MG MG Meclizine Meclizine No 1{table BID Meclizine HCl 25 MG HCl 25 MG t_as_ne HCl 25 MG eded} Lasix 20 MG Lasix 20 MG No 1{table Lasix 20 t} MG ZyrTEC ZyrTEC No 1{table QD ZyrTEC Allergy 10 Allergy 10 t} Allergy 10 MG MG MG Esomeprazol Esomeprazol No Esomeprazo e Magnesium e Magnesium le 40 MG 40 MG Magnesium 40 MG amLODIPine amLODIPine No 1{table QD amLODIPine Besylate 5 Besylate 5 t} Besylate 5 MG MG MG Augmentin Augmentin No 1{table BID Augmentin 875-125 MG 875-125 MG t} 875-125 MG amLODIPine amLODIPine No 1{table QD amLODIPine Besylate 5 Besylate 5 t} Besylate 5 MG MG MG Valsartan Valsartan No Valsartan 320 MG 320 MG 320 MG Ventolin Ventolin No 2{puffs QID Ventolin HFA 108 (90 HFA 108 (90 _as_nee HFA 108 Base) Base) ded} (90 Base) MCG/ACT MCG/ACT MCG/ACT Astelin Astelin No Astelin Tessalon Tessalon No 1{capsu TID Tessalon Perles 100 Perles 100 le_as_n Perles 100 MG MG eeded} MG Valsartan Valsartan No 1{table QD Valsartan 320 MG 320 MG t} 320 MG Erythromyci Erythromyci No 1{appli QID Erythromyc n 5 MG/GM n 5 MG/GM cation} in 5 MG/GM Flonase 50 Flonase 50 No 2{spray QD Flonase 50 MCG/ACT MCG/ACT _in_eac MCG/ACT h_nostr il} Acidophilus Acidophilus No Acidophilu - - s - Rosuvastati Rosuvastati No Rosuvastat n Calcium n Calcium in Calcium 10 MG 10 MG 10 MG Zithromax Zithromax No Zithromax 500 MG 500 MG 500 MG Cyclobenzap Cyclobenzap No 1{table TID Cyclobenza rine HCl 10 rine HCl 10 t_as_ne kye HCl MG MG eded} 10 MG Ambien 5 MG Ambien 5 MG No 1{table QD Ambien 5 t_at_be MG dtime} Aspir-81 81 Aspir-81 81 No 1{table QD Aspir-81 MG MG t} 81 MG Montelukast Montelukast No 1{table QD Montelukas Sodium 10 Sodium 10 t_in_th t Sodium MG MG e_eveni 10 MG ng} Crestor 10 Crestor 10 No QD Crestor 10 MG MG MG Lasix 20 MG Lasix 20 MG No 1{table Lasix 20 t} MG ZyrTEC ZyrTEC No 1{table QD ZyrTEC Allergy 10 Allergy 10 t} Allergy 10 MG MG MG Scandia Scandia No 1{table QID Scandia 325-10 MG 325-10 MG t_as_ne 325-10 MG eded} Esomeprazol Esomeprazol No Esomeprazo e Magnesium e Magnesium le 40 MG 40 MG Magnesium 40 MG NexIUM 20 NexIUM 20 No 1{capsu QD NexIUM 20 MG MG le} MG Meclizine Meclizine No 1{table BID Meclizine HCl 25 MG HCl 25 MG t_as_ne HCl 25 MG eded} hydroCHLORO hydroCHLORO No 1{table QD hydroCHLOR thiazide thiazide t_in_th Othiazide 12.5 MG 12.5 MG e_morni 12.5 MG ng} Lasix 20 MG Lasix 20 MG No 1{table Lasix 20 t} MG amLODIPine amLODIPine No 1{table QD amLODIPine Besylate 5 Besylate 5 t} Besylate 5 MG MG MG amLODIPine amLODIPine No 1{table QD amLODIPine Besylate 5 Besylate 5 t} Besylate 5 MG MG MG Augmentin Augmentin No 1{table BID Augmentin 875-125 MG 875-125 MG t} 875-125 MG Ventolin Ventolin No 2{puffs QID Ventolin HFA 108 (90 HFA 108 (90 _as_nee HFA 108 Base) Base) ded} (90 Base) MCG/ACT MCG/ACT MCG/ACT Zithromax Zithromax No Zithromax 500 MG 500 MG 500 MG amLODIPine amLODIPine No 1{table QD amLODIPine Besylate 5 Besylate 5 t} Besylate 5 MG MG MG Cyclobenzap Cyclobenzap No 1{table TID Cyclobenza rine HCl 10 rine HCl 10 t_as_ne kye HCl MG MG eded} 10 MG Valsartan Valsartan No 1{table QD Valsartan 320 MG 320 MG t} 320 MG Ambien 5 MG Ambien 5 MG No 1{table QD Ambien 5 t_at_be MG dtime} Metoprolol Metoprolol No QD Metoprolol Succinate Succinate Succinate 50 MG 50 MG 50 MG Lasix 20 MG Lasix 20 MG No 1{table Lasix 20 t} MG Valsartan Valsartan No 1{table QD Valsartan 320 MG 320 MG t} 320 MG Augmentin Augmentin No 1{table BID Augmentin 875-125 MG 875-125 MG t} 875-125 MG Esomeprazol Esomeprazol No Esomeprazo e Magnesium e Magnesium le 40 MG 40 MG Magnesium 40 MG hydroCHLORO hydroCHLORO No 1{table QD hydroCHLOR thiazide thiazide t_in_th Othiazide 12.5 MG 12.5 MG e_morni 12.5 MG ng} Montelukast Montelukast No 1{table QD Montelukas Sodium 10 Sodium 10 t_in_th t Sodium MG MG e_eveni 10 MG ng} Aspir-81 81 Aspir-81 81 No 1{table QD Aspir-81 MG MG t} 81 MG Crestor 10 Crestor 10 No QD Crestor 10 MG MG MG Meclizine Meclizine No 1{table BID Meclizine HCl 25 MG HCl 25 MG t_as_ne HCl 25 MG eded} Flonase 50 Flonase 50 No 2{spray QD Flonase 50 MCG/ACT MCG/ACT _in_eac MCG/ACT h_nostr il} Lasix 20 MG Lasix 20 MG No 1{table Lasix 20 t} MG Acidophilus Acidophilus No Acidophilu - - s - Astelin Astelin No Astelin amLODIPine amLODIPine No 1{table QD amLODIPine Besylate 5 Besylate 5 t} Besylate 5 MG MG MG Ventolin Ventolin No 2{puffs QID Ventolin HFA 108 (90 HFA 108 (90 _as_nee HFA 108 Base) Base) ded} (90 Base) MCG/ACT MCG/ACT MCG/ACT Scandia Scandia No 1{table QID Scandia 325-10 MG 325-10 MG t_as_ne 325-10 MG eded} Tessalon Tessalon No 1{capsu TID Tessalon Perles 100 Perles 100 le_as_n Perles 100 MG MG eeded} MG NexIUM 20 NexIUM 20 No 1{capsu QD NexIUM 20 MG MG le} MG ZyrTEC ZyrTEC No 1{table QD ZyrTEC Allergy 10 Allergy 10 t} Allergy 10 MG MG MG Erythromyci Erythromyci No 1{appli QID Erythromyc n 5 MG/GM n 5 MG/GM cation} in 5 MG/GM Rosuvastati Rosuvastati No Rosuvastat n Calcium n Calcium in Calcium 10 MG 10 MG 10 MG Zithromax Zithromax No Zithromax 500 MG 500 MG 500 MG amLODIPine amLODIPine No 1{table QD amLODIPine Besylate 5 Besylate 5 t} Besylate 5 MG MG MG Cyclobenzap Cyclobenzap No 1{table TID Cyclobenza rine HCl 10 rine HCl 10 t_as_ne kye HCl MG MG eded} 10 MG Valsartan Valsartan No 1{table QD Valsartan 320 MG 320 MG t} 320 MG Ambien 5 MG Ambien 5 MG No 1{table QD Ambien 5 t_at_be MG dtime} Metoprolol Metoprolol No QD Metoprolol Succinate Succinate Succinate 50 MG 50 MG 50 MG Lasix 20 MG Lasix 20 MG No 1{table Lasix 20 t} MG Valsartan Valsartan No 1{table QD Valsartan 320 MG 320 MG t} 320 MG Augmentin Augmentin No 1{table BID Augmentin 875-125 MG 875-125 MG t} 875-125 MG Esomeprazol Esomeprazol No Esomeprazo e Magnesium e Magnesium le 40 MG 40 MG Magnesium 40 MG hydroCHLORO hydroCHLORO No 1{table QD hydroCHLOR thiazide thiazide t_in_th Othiazide 12.5 MG 12.5 MG e_morni 12.5 MG ng} Montelukast Montelukast No 1{table QD Montelukas Sodium 10 Sodium 10 t_in_th t Sodium MG MG e_eveni 10 MG ng} Aspir-81 81 Aspir-81 81 No 1{table QD Aspir-81 MG MG t} 81 MG Crestor 10 Crestor 10 No QD Crestor 10 MG MG MG Meclizine Meclizine No 1{table BID Meclizine HCl 25 MG HCl 25 MG t_as_ne HCl 25 MG eded} Flonase 50 Flonase 50 No 2{spray QD Flonase 50 MCG/ACT MCG/ACT _in_eac MCG/ACT h_nostr il} Lasix 20 MG Lasix 20 MG No 1{table Lasix 20 t} MG Acidophilus Acidophilus No Acidophilu - - s - Astelin Astelin No Astelin amLODIPine amLODIPine No 1{table QD amLODIPine Besylate 5 Besylate 5 t} Besylate 5 MG MG MG Ventolin Ventolin No 2{puffs QID Ventolin HFA 108 (90 HFA 108 (90 _as_nee HFA 108 Base) Base) ded} (90 Base) MCG/ACT MCG/ACT MCG/ACT Scandia Scandia No 1{table QID Scandia 325-10 MG 325-10 MG t_as_ne 325-10 MG eded} Tessalon Tessalon No 1{capsu TID Tessalon Perles 100 Perles 100 le_as_n Perles 100 MG MG eeded} MG NexIUM 20 NexIUM 20 No 1{capsu QD NexIUM 20 MG MG le} MG ZyrTEC ZyrTEC No 1{table QD ZyrTEC Allergy 10 Allergy 10 t} Allergy 10 MG MG MG Erythromyci Erythromyci No 1{appli QID Erythromyc n 5 MG/GM n 5 MG/GM cation} in 5 MG/GM Rosuvastati Rosuvastati No Rosuvastat n Calcium n Calcium in Calcium 10 MG 10 MG 10 MG Valsartan Valsartan No 1{table QD Valsartan 320 MG 320 MG t} 320 MG Zithromax Zithromax No Zithromax 500 MG 500 MG 500 MG amLODIPine amLODIPine No 1{table QD amLODIPine Besylate 5 Besylate 5 t} Besylate 5 MG MG MG Acidophilus Acidophilus No Acidophilu - - s - hydroCHLORO hydroCHLORO No 1{table QD hydroCHLOR thiazide thiazide t_in_th Othiazide 12.5 MG 12.5 MG e_morni 12.5 MG ng} Metoprolol Metoprolol No QD Metoprolol Succinate Succinate Succinate 50 MG 50 MG 50 MG Montelukast Montelukast No 1{table QD Montelukas Sodium 10 Sodium 10 t_in_th t Sodium MG MG e_eveni 10 MG ng} Lasix 20 MG Lasix 20 MG No 1{table Lasix 20 t} MG Scandia Scandia No 1{table QID Scandia 325-10 MG 325-10 MG t_as_ne 325-10 MG eded} Flonase 50 Flonase 50 No 2{spray QD Flonase 50 MCG/ACT MCG/ACT _in_eac MCG/ACT h_nostr il} Ambien 5 MG Ambien 5 MG No 1{table QD Ambien 5 t_at_be MG dtime} Cyclobenzap Cyclobenzap No 1{table TID Cyclobenza rine HCl 10 rine HCl 10 t_as_ne kye HCl MG MG eded} 10 MG ZyrTEC ZyrTEC No 1{table QD ZyrTEC Allergy 10 Allergy 10 t} Allergy 10 MG MG MG amLODIPine amLODIPine No 1{table QD amLODIPine Besylate 5 Besylate 5 t} Besylate 5 MG MG MG Meclizine Meclizine No 1{table BID Meclizine HCl 25 MG HCl 25 MG t_as_ne HCl 25 MG eded} Crestor 10 Crestor 10 No QD Crestor 10 MG MG MG Astelin Astelin No Astelin Augmentin Augmentin No 1{table BID Augmentin 875-125 MG 875-125 MG t} 875-125 MG Valsartan Valsartan No 1{table QD Valsartan 320 MG 320 MG t} 320 MG Esomeprazol Esomeprazol No Esomeprazo e Magnesium e Magnesium le 40 MG 40 MG Magnesium 40 MG Aspir-81 81 Aspir-81 81 No 1{table QD Aspir-81 MG MG t} 81 MG Rosuvastati Rosuvastati No Rosuvastat n Calcium n Calcium in Calcium 10 MG 10 MG 10 MG Lasix 20 MG Lasix 20 MG No 1{table Lasix 20 t} MG Erythromyci Erythromyci No 1{appli QID Erythromyc n 5 MG/GM n 5 MG/GM cation} in 5 MG/GM Tessalon Tessalon No 1{capsu TID Tessalon Perles 100 Perles 100 le_as_n Perles 100 MG MG eeded} MG Ventolin Ventolin No 2{puffs QID Ventolin HFA 108 (90 HFA 108 (90 _as_nee HFA 108 Base) Base) ded} (90 Base) MCG/ACT MCG/ACT MCG/ACT NexIUM 20 NexIUM 20 No 1{capsu QD NexIUM 20 MG MG le} MG Valsartan Valsartan No 1{table QD Valsartan 320 MG 320 MG t} 320 MG Zithromax Zithromax No Zithromax 500 MG 500 MG 500 MG amLODIPine amLODIPine No 1{table QD amLODIPine Besylate 5 Besylate 5 t} Besylate 5 MG MG MG Acidophilus Acidophilus No Acidophilu - - s - hydroCHLORO hydroCHLORO No 1{table QD hydroCHLOR thiazide thiazide t_in_th Othiazide 12.5 MG 12.5 MG e_morni 12.5 MG ng} Metoprolol Metoprolol No QD Metoprolol Succinate Succinate Succinate 50 MG 50 MG 50 MG Montelukast Montelukast No 1{table QD Montelukas Sodium 10 Sodium 10 t_in_th t Sodium MG MG e_eveni 10 MG ng} Lasix 20 MG Lasix 20 MG No 1{table Lasix 20 t} MG Scandia Scandia No 1{table QID Scandia 325-10 MG 325-10 MG t_as_ne 325-10 MG eded} Flonase 50 Flonase 50 No 2{spray QD Flonase 50 MCG/ACT MCG/ACT _in_eac MCG/ACT h_nostr il} Ambien 5 MG Ambien 5 MG No 1{table QD Ambien 5 t_at_be MG dtime} Cyclobenzap Cyclobenzap No 1{table TID Cyclobenza rine HCl 10 rine HCl 10 t_as_ne kye HCl MG MG eded} 10 MG ZyrTEC ZyrTEC No 1{table QD ZyrTEC Allergy 10 Allergy 10 t} Allergy 10 MG MG MG amLODIPine amLODIPine No 1{table QD amLODIPine Besylate 5 Besylate 5 t} Besylate 5 MG MG MG Meclizine Meclizine No 1{table BID Meclizine HCl 25 MG HCl 25 MG t_as_ne HCl 25 MG eded} Crestor 10 Crestor 10 No QD Crestor 10 MG MG MG Astelin Astelin No Astelin Augmentin Augmentin No 1{table BID Augmentin 875-125 MG 875-125 MG t} 875-125 MG Valsartan Valsartan No 1{table QD Valsartan 320 MG 320 MG t} 320 MG Esomeprazol Esomeprazol No Esomeprazo e Magnesium e Magnesium le 40 MG 40 MG Magnesium 40 MG Aspir-81 81 Aspir-81 81 No 1{table QD Aspir-81 MG MG t} 81 MG Rosuvastati Rosuvastati No Rosuvastat n Calcium n Calcium in Calcium 10 MG 10 MG 10 MG Lasix 20 MG Lasix 20 MG No 1{table Lasix 20 t} MG Erythromyci Erythromyci No 1{appli QID Erythromyc n 5 MG/GM n 5 MG/GM cation} in 5 MG/GM Tessalon Tessalon No 1{capsu TID Tessalon Perles 100 Perles 100 le_as_n Perles 100 MG MG eeded} MG Ventolin Ventolin No 2{puffs QID Ventolin HFA 108 (90 HFA 108 (90 _as_nee HFA 108 Base) Base) ded} (90 Base) MCG/ACT MCG/ACT MCG/ACT NexIUM 20 NexIUM 20 No 1{capsu QD NexIUM 20 MG MG le} MG Aspir-81 81 Aspir-81 81 No 1{table QD Aspir-81 MG MG t} 81 MG Flonase 50 Flonase 50 No 2{spray QD Flonase 50 MCG/ACT MCG/ACT _in_eac MCG/ACT h_nostr il} Rosuvastati Rosuvastati No Rosuvastat n Calcium n Calcium in Calcium 10 MG 10 MG 10 MG Meclizine Meclizine No 1{table BID Meclizine HCl 25 MG HCl 25 MG t_as_ne HCl 25 MG eded} Valsartan Valsartan No 1{table QD Valsartan 320 MG 320 MG t} 320 MG Zithromax Zithromax No Zithromax 500 MG 500 MG 500 MG Esomeprazol Esomeprazol No Esomeprazo e Magnesium e Magnesium le 40 MG 40 MG Magnesium 40 MG Cyclobenzap Cyclobenzap No 1{table TID Cyclobenza rine HCl 10 rine HCl 10 t_as_ne kye HCl MG MG eded} 10 MG Ambien 5 MG Ambien 5 MG No 1{table QD Ambien 5 t_at_be MG dtime} amLODIPine amLODIPine No 1{table QD amLODIPine Besylate 5 Besylate 5 t} Besylate 5 MG MG MG Acidophilus Acidophilus No Acidophilu - - s - Astelin Astelin No Astelin Erythromyci Erythromyci No 1{appli QID Erythromyc n 5 MG/GM n 5 MG/GM cation} in 5 MG/GM Augmentin Augmentin No 1{table BID Augmentin 875-125 MG 875-125 MG t} 875-125 MG Tessalon Tessalon No 1{capsu TID Tessalon Perles 100 Perles 100 le_as_n Perles 100 MG MG eeded} MG Lasix 20 MG Lasix 20 MG No 1{table Lasix 20 t} MG Ventolin Ventolin No 2{puffs QID Ventolin HFA 108 (90 HFA 108 (90 _as_nee HFA 108 Base) Base) ded} (90 Base) MCG/ACT MCG/ACT MCG/ACT Augmentin Augmentin No 1{table BID Augmentin 500-125 MG 500-125 MG t} 500-125 MG amLODIPine amLODIPine No 1{table QD amLODIPine Besylate 5 Besylate 5 t} Besylate 5 MG MG MG Montelukast Montelukast No 1{table QD Montelukas Sodium 10 Sodium 10 t_in_th t Sodium MG MG e_eveni 10 MG ng} NexIUM 20 NexIUM 20 No 1{capsu QD NexIUM 20 MG MG le} MG Scandia Scandia No 1{table QID Scandia 325-10 MG 325-10 MG t_as_ne 325-10 MG eded} ZyrTEC ZyrTEC No 1{table QD ZyrTEC Allergy 10 Allergy 10 t} Allergy 10 MG MG MG Lasix 20 MG Lasix 20 MG No 1{table Lasix 20 t} MG Valsartan Valsartan No 1{table QD Valsartan 320 MG 320 MG t} 320 MG hydroCHLORO hydroCHLORO No 1{table QD hydroCHLOR thiazide thiazide t_in_th Othiazide 12.5 MG 12.5 MG e_morni 12.5 MG ng} Crestor 10 Crestor 10 No QD Crestor 10 MG MG MG Metoprolol Metoprolol No QD Metoprolol Succinate Succinate Succinate 50 MG 50 MG 50 MG Aspir-81 81 Aspir-81 81 No 1{table QD Aspir-81 MG MG t} 81 MG Flonase 50 Flonase 50 No 2{spray QD Flonase 50 MCG/ACT MCG/ACT _in_eac MCG/ACT h_nostr il} Rosuvastati Rosuvastati No Rosuvastat n Calcium n Calcium in Calcium 10 MG 10 MG 10 MG Meclizine Meclizine No 1{table BID Meclizine HCl 25 MG HCl 25 MG t_as_ne HCl 25 MG eded} Valsartan Valsartan No 1{table QD Valsartan 320 MG 320 MG t} 320 MG Zithromax Zithromax No Zithromax 500 MG 500 MG 500 MG Esomeprazol Esomeprazol No Esomeprazo e Magnesium e Magnesium le 40 MG 40 MG Magnesium 40 MG Cyclobenzap Cyclobenzap No 1{table TID Cyclobenza rine HCl 10 rine HCl 10 t_as_ne kye HCl MG MG eded} 10 MG Ambien 5 MG Ambien 5 MG No 1{table QD Ambien 5 t_at_be MG dtime} amLODIPine amLODIPine No 1{table QD amLODIPine Besylate 5 Besylate 5 t} Besylate 5 MG MG MG Acidophilus Acidophilus No Acidophilu - - s - Astelin Astelin No Astelin Erythromyci Erythromyci No 1{appli QID Erythromyc n 5 MG/GM n 5 MG/GM cation} in 5 MG/GM Augmentin Augmentin No 1{table BID Augmentin 875-125 MG 875-125 MG t} 875-125 MG Tessalon Tessalon No 1{capsu TID Tessalon Perles 100 Perles 100 le_as_n Perles 100 MG MG eeded} MG Lasix 20 MG Lasix 20 MG No 1{table Lasix 20 t} MG Ventolin Ventolin No 2{puffs QID Ventolin HFA 108 (90 HFA 108 (90 _as_nee HFA 108 Base) Base) ded} (90 Base) MCG/ACT MCG/ACT MCG/ACT Augmentin Augmentin No 1{table BID Augmentin 500-125 MG 500-125 MG t} 500-125 MG amLODIPine amLODIPine No 1{table QD amLODIPine Besylate 5 Besylate 5 t} Besylate 5 MG MG MG Montelukast Montelukast No 1{table QD Montelukas Sodium 10 Sodium 10 t_in_th t Sodium MG MG e_eveni 10 MG ng} NexIUM 20 NexIUM 20 No 1{capsu QD NexIUM 20 MG MG le} MG Scandia Scandia No 1{table QID Scandia 325-10 MG 325-10 MG t_as_ne 325-10 MG eded} ZyrTEC ZyrTEC No 1{table QD ZyrTEC Allergy 10 Allergy 10 t} Allergy 10 MG MG MG Lasix 20 MG Lasix 20 MG No 1{table Lasix 20 t} MG Valsartan Valsartan No 1{table QD Valsartan 320 MG 320 MG t} 320 MG hydroCHLORO hydroCHLORO No 1{table QD hydroCHLOR thiazide thiazide t_in_th Othiazide 12.5 MG 12.5 MG e_morni 12.5 MG ng} Crestor 10 Crestor 10 No QD Crestor 10 MG MG MG Metoprolol Metoprolol No QD Metoprolol Succinate Succinate Succinate 50 MG 50 MG 50 MG Augmentin Augmentin No 1{table BID Augmentin 875-125 MG 875-125 MG t} 875-125 MG Acidophilus Acidophilus No Acidophilu - - s - amLODIPine amLODIPine No 1{table QD amLODIPine Besylate 5 Besylate 5 t} Besylate 5 MG MG MG Augmentin Augmentin No 1{table BID Augmentin 500-125 MG 500-125 MG t} 500-125 MG Flonase 50 Flonase 50 No 2{spray QD Flonase 50 MCG/ACT MCG/ACT _in_eac MCG/ACT h_nostr il} Meclizine Meclizine No 1{table BID Meclizine HCl 25 MG HCl 25 MG t_as_ne HCl 25 MG eded} Crestor 10 Crestor 10 No QD Crestor 10 MG MG MG Lasix 20 MG Lasix 20 MG No 1{table Lasix 20 t} MG Scandia Scandia No 1{table QID Scandia 325-10 MG 325-10 MG t_as_ne 325-10 MG eded} Montelukast Montelukast No Montelukas Sodium 10 Sodium 10 t Sodium MG MG 10 MG Ambien 5 MG Ambien 5 MG No 1{table QD Ambien 5 t_at_be MG dtime} Aspir-81 81 Aspir-81 81 No 1{table QD Aspir-81 MG MG t} 81 MG Cyclobenzap Cyclobenzap No 1{table TID Cyclobenza rine HCl 10 rine HCl 10 t_as_ne kye HCl MG MG eded} 10 MG Rosuvastati Rosuvastati No Rosuvastat n Calcium n Calcium in Calcium 10 MG 10 MG 10 MG hydroCHLORO hydroCHLORO No 1{table QD hydroCHLOR thiazide thiazide t_in_th Othiazide 12.5 MG 12.5 MG e_morni 12.5 MG ng} Erythromyci Erythromyci No 1{appli QID Erythromyc n 5 MG/GM n 5 MG/GM cation} in 5 MG/GM Valsartan Valsartan No 1{table QD Valsartan 320 MG 320 MG t} 320 MG Astelin Astelin No Astelin amLODIPine amLODIPine No 1{table QD amLODIPine Besylate 5 Besylate 5 t} Besylate 5 MG MG MG Valsartan Valsartan No 1{table QD Valsartan 320 MG 320 MG t} 320 MG Esomeprazol Esomeprazol No Esomeprazo e Magnesium e Magnesium le 40 MG 40 MG Magnesium 40 MG Metoprolol Metoprolol No QD Metoprolol Succinate Succinate Succinate 50 MG 50 MG 50 MG Zithromax Zithromax No Zithromax 500 MG 500 MG 500 MG Tessalon Tessalon No 1{capsu TID Tessalon Perles 100 Perles 100 le_as_n Perles 100 MG MG eeded} MG Ventolin Ventolin No 2{puffs QID Ventolin HFA 108 (90 HFA 108 (90 _as_nee HFA 108 Base) Base) ded} (90 Base) MCG/ACT MCG/ACT MCG/ACT NexIUM 20 NexIUM 20 No 1{capsu QD NexIUM 20 MG MG le} MG Lasix 20 MG Lasix 20 MG No 1{table Lasix 20 t} MG ZyrTEC ZyrTEC No 1{table QD ZyrTEC Allergy 10 Allergy 10 t} Allergy 10 MG MG MG Augmentin Augmentin No 1{table BID Augmentin 875-125 MG 875-125 MG t} 875-125 MG Meclizine Meclizine No 1{table BID Meclizine HCl 25 MG HCl 25 MG t_as_ne HCl 25 MG eded} Crestor 10 Crestor 10 No QD Crestor 10 MG MG MG amLODIPine amLODIPine No 1{table QD amLODIPine Besylate 5 Besylate 5 t} Besylate 5 MG MG MG Scandia Scandia No 1{table QID Scandia 325-10 MG 325-10 MG t_as_ne 325-10 MG eded} Flonase 50 Flonase 50 No 2{spray QD Flonase 50 MCG/ACT MCG/ACT _in_eac MCG/ACT h_nostr il} Montelukast Montelukast No Montelukas Sodium 10 Sodium 10 t Sodium MG MG 10 MG Lasix 20 MG Lasix 20 MG No 1{table Lasix 20 t} MG Aspir-81 81 Aspir-81 81 No 1{table QD Aspir-81 MG MG t} 81 MG Zithromax Zithromax No Zithromax 500 MG 500 MG 500 MG Ambien 5 MG Ambien 5 MG No 1{table QD Ambien 5 t_at_be MG dtime} Cyclobenzap Cyclobenzap No 1{table TID Cyclobenza rine HCl 10 rine HCl 10 t_as_ne kye HCl MG MG eded} 10 MG Augmentin Augmentin No 1{table BID Augmentin 500-125 MG 500-125 MG t} 500-125 MG Rosuvastati Rosuvastati No Rosuvastat n Calcium n Calcium in Calcium 10 MG 10 MG 10 MG hydroCHLORO hydroCHLORO No 1{table QD hydroCHLOR thiazide thiazide t_in_th Othiazide 12.5 MG 12.5 MG e_morni 12.5 MG ng} Erythromyci Erythromyci No 1{appli QID Erythromyc n 5 MG/GM n 5 MG/GM cation} in 5 MG/GM Valsartan Valsartan No 1{table QD Valsartan 320 MG 320 MG t} 320 MG Astelin Astelin No Astelin amLODIPine amLODIPine No 1{table QD amLODIPine Besylate 5 Besylate 5 t} Besylate 5 MG MG MG Valsartan Valsartan No 1{table QD Valsartan 320 MG 320 MG t} 320 MG Esomeprazol Esomeprazol No Esomeprazo e Magnesium e Magnesium le 40 MG 40 MG Magnesium 40 MG Metoprolol Metoprolol No QD Metoprolol Succinate Succinate Succinate 50 MG 50 MG 50 MG Acidophilus Acidophilus No Acidophilu - - s - Tessalon Tessalon No 1{capsu TID Tessalon Perles 100 Perles 100 le_as_n Perles 100 MG MG eeded} MG Ventolin Ventolin No 2{puffs QID Ventolin HFA 108 (90 HFA 108 (90 _as_nee HFA 108 Base) Base) ded} (90 Base) MCG/ACT MCG/ACT MCG/ACT NexIUM 20 NexIUM 20 No 1{capsu QD NexIUM 20 MG MG le} MG Lasix 20 MG Lasix 20 MG No 1{table Lasix 20 t} MG ZyrTEC ZyrTEC No 1{table QD ZyrTEC Allergy 10 Allergy 10 t} Allergy 10 MG MG MG Metoprolol Metoprolol No QD Metoprolol Succinate Succinate Succinate 50 MG 50 MG 50 MG Rosuvastati Rosuvastati No Rosuvastat n Calcium n Calcium in Calcium 10 MG 10 MG 10 MG Montelukast Montelukast No Montelukas Sodium 10 Sodium 10 t Sodium MG MG 10 MG amLODIPine amLODIPine No 1{table QD amLODIPine Besylate 5 Besylate 5 t} Besylate 5 MG MG MG Valsartan Valsartan No Valsartan 320 MG 320 MG 320 MG Lasix 20 MG Lasix 20 MG No 1{table Lasix 20 t} MG Ambien 5 MG Ambien 5 MG No 1{table QD Ambien 5 t_at_be MG dtime} Flonase 50 Flonase 50 No 2{spray QD Flonase 50 MCG/ACT MCG/ACT _in_eac MCG/ACT h_nostr il} Esomeprazol Esomeprazol No Esomeprazo e Magnesium e Magnesium le 40 MG 40 MG Magnesium 40 MG Astelin Astelin No Astelin Zithromax Zithromax No Zithromax 500 MG 500 MG 500 MG Ventolin Ventolin No 2{puffs QID Ventolin HFA 108 (90 HFA 108 (90 _as_nee HFA 108 Base) Base) ded} (90 Base) MCG/ACT MCG/ACT MCG/ACT Scandia Scandia No 1{table QID Scandia 325-10 MG 325-10 MG t_as_ne 325-10 MG eded} Augmentin Augmentin No 1{table BID Augmentin 500-125 MG 500-125 MG t} 500-125 MG Lasix 20 MG Lasix 20 MG No 1{table Lasix 20 t} MG amLODIPine amLODIPine No 1{table QD amLODIPine Besylate 5 Besylate 5 t} Besylate 5 MG MG MG NexIUM 20 NexIUM 20 No 1{capsu QD NexIUM 20 MG MG le} MG Albuterol Albuterol No Albuterol Sulfate HFA Sulfate HFA Sulfate 108 (90 108 (90 HFA 108 Base) Base) (90 Base) MCG/ACT MCG/ACT MCG/ACT hydroCHLORO hydroCHLORO No hydroCHLOR thiazide thiazide Othiazide 12.5 MG 12.5 MG 12.5 MG Augmentin Augmentin No 1{table BID Augmentin 875-125 MG 875-125 MG t} 875-125 MG ZyrTEC ZyrTEC No 1{table QD ZyrTEC Allergy 10 Allergy 10 t} Allergy 10 MG MG MG Tessalon Tessalon No 1{capsu TID Tessalon Perles 100 Perles 100 le_as_n Perles 100 MG MG eeded} MG Cyclobenzap Cyclobenzap No 1{table TID Cyclobenza rine HCl 10 rine HCl 10 t_as_ne kye HCl MG MG eded} 10 MG Meclizine Meclizine No 1{table BID Meclizine HCl 25 MG HCl 25 MG t_as_ne HCl 25 MG eded} Erythromyci Erythromyci No 1{appli QID Erythromyc n 5 MG/GM n 5 MG/GM cation} in 5 MG/GM Aspir-81 81 Aspir-81 81 No 1{table QD Aspir-81 MG MG t} 81 MG Acidophilus Acidophilus No Acidophilu - - s - Metoprolol Metoprolol No QD Metoprolol Succinate Succinate Succinate 50 MG 50 MG 50 MG Rosuvastati Rosuvastati No Rosuvastat n Calcium n Calcium in Calcium 10 MG 10 MG 10 MG Montelukast Montelukast No Montelukas Sodium 10 Sodium 10 t Sodium MG MG 10 MG amLODIPine amLODIPine No 1{table QD amLODIPine Besylate 5 Besylate 5 t} Besylate 5 MG MG MG Valsartan Valsartan No Valsartan 320 MG 320 MG 320 MG Lasix 20 MG Lasix 20 MG No 1{table Lasix 20 t} MG Ambien 5 MG Ambien 5 MG No 1{table QD Ambien 5 t_at_be MG dtime} Flonase 50 Flonase 50 No 2{spray QD Flonase 50 MCG/ACT MCG/ACT _in_eac MCG/ACT h_nostr il} Esomeprazol Esomeprazol No Esomeprazo e Magnesium e Magnesium le 40 MG 40 MG Magnesium 40 MG Astelin Astelin No Astelin Zithromax Zithromax No Zithromax 500 MG 500 MG 500 MG Ventolin Ventolin No 2{puffs QID Ventolin HFA 108 (90 HFA 108 (90 _as_nee HFA 108 Base) Base) ded} (90 Base) MCG/ACT MCG/ACT MCG/ACT Scandia Scandia No 1{table QID Scandia 325-10 MG 325-10 MG t_as_ne 325-10 MG eded} Augmentin Augmentin No 1{table BID Augmentin 500-125 MG 500-125 MG t} 500-125 MG Lasix 20 MG Lasix 20 MG No 1{table Lasix 20 t} MG amLODIPine amLODIPine No 1{table QD amLODIPine Besylate 5 Besylate 5 t} Besylate 5 MG MG MG NexIUM 20 NexIUM 20 No 1{capsu QD NexIUM 20 MG MG le} MG Albuterol Albuterol No Albuterol Sulfate HFA Sulfate HFA Sulfate 108 (90 108 (90 HFA 108 Base) Base) (90 Base) MCG/ACT MCG/ACT MCG/ACT hydroCHLORO hydroCHLORO No hydroCHLOR thiazide thiazide Othiazide 12.5 MG 12.5 MG 12.5 MG Augmentin Augmentin No 1{table BID Augmentin 875-125 MG 875-125 MG t} 875-125 MG ZyrTEC ZyrTEC No 1{table QD ZyrTEC Allergy 10 Allergy 10 t} Allergy 10 MG MG MG Tessalon Tessalon No 1{capsu TID Tessalon Perles 100 Perles 100 le_as_n Perles 100 MG MG eeded} MG Cyclobenzap Cyclobenzap No 1{table TID Cyclobenza rine HCl 10 rine HCl 10 t_as_ne kye HCl MG MG eded} 10 MG Meclizine Meclizine No 1{table BID Meclizine HCl 25 MG HCl 25 MG t_as_ne HCl 25 MG eded} Erythromyci Erythromyci No 1{appli QID Erythromyc n 5 MG/GM n 5 MG/GM cation} in 5 MG/GM Aspir-81 81 Aspir-81 81 No 1{table QD Aspir-81 MG MG t} 81 MG Acidophilus Acidophilus No Acidophilu - - s - ZyrTEC ZyrTEC No 1{table QD ZyrTEC Allergy 10 Allergy 10 t} Allergy 10 MG MG MG Ambien 5 MG Ambien 5 MG No 1{table QD Ambien 5 t_at_be MG dtime} Augmentin Augmentin No 1{table BID Augmentin 500-125 MG 500-125 MG t} 500-125 MG amLODIPine amLODIPine No 1{table QD amLODIPine Besylate 5 Besylate 5 t} Besylate 5 MG MG MG Astelin Astelin No Astelin Metoprolol Metoprolol No QD Metoprolol Succinate Succinate Succinate 50 MG 50 MG 50 MG Lasix 20 MG Lasix 20 MG No 1{table Lasix 20 t} MG Flonase 50 Flonase 50 No 2{spray QD Flonase 50 MCG/ACT MCG/ACT _in_eac MCG/ACT h_nostr il} Esomeprazol Esomeprazol No Esomeprazo e Magnesium e Magnesium le 40 MG 40 MG Magnesium 40 MG Montelukast Montelukast No Montelukas Sodium 10 Sodium 10 t Sodium MG MG 10 MG Zithromax Zithromax No Zithromax 500 MG 500 MG 500 MG Tessalon Tessalon No 1{capsu TID Tessalon Perles 100 Perles 100 le_as_n Perles 100 MG MG eeded} MG amLODIPine amLODIPine No 1{table QD amLODIPine Besylate 5 Besylate 5 t} Besylate 5 MG MG MG Erythromyci Erythromyci No 1{appli QID Erythromyc n 5 MG/GM n 5 MG/GM cation} in 5 MG/GM Lasix 20 MG Lasix 20 MG No 1{table Lasix 20 t} MG Scandia Scandia No 1{table QID Scandia 325-10 MG 325-10 MG t_as_ne 325-10 MG eded} Ventolin Ventolin No 2{puffs QID Ventolin HFA 108 (90 HFA 108 (90 _as_nee HFA 108 Base) Base) ded} (90 Base) MCG/ACT MCG/ACT MCG/ACT Albuterol Albuterol No Albuterol Sulfate HFA Sulfate HFA Sulfate 108 (90 108 (90 HFA 108 Base) Base) (90 Base) MCG/ACT MCG/ACT MCG/ACT hydroCHLORO hydroCHLORO No hydroCHLOR thiazide thiazide Othiazide 12.5 MG 12.5 MG 12.5 MG Cyclobenzap Cyclobenzap No 1{table TID Cyclobenza rine HCl 10 rine HCl 10 t_as_ne kye HCl MG MG eded} 10 MG NexIUM 20 NexIUM 20 No 1{capsu QD NexIUM 20 MG MG le} MG Augmentin Augmentin No 1{table BID Augmentin 875-125 MG 875-125 MG t} 875-125 MG Meclizine Meclizine No 1{table BID Meclizine HCl 25 MG HCl 25 MG t_as_ne HCl 25 MG eded} Acidophilus Acidophilus No Acidophilu - - s - Aspir-81 81 Aspir-81 81 No 1{table QD Aspir-81 MG MG t} 81 MG Rosuvastati Rosuvastati No Rosuvastat n Calcium n Calcium in Calcium 10 MG 10 MG 10 MG Valsartan Valsartan No Valsartan 320 MG 320 MG 320 MG ZyrTEC ZyrTEC No 1{table QD ZyrTEC Allergy 10 Allergy 10 t} Allergy 10 MG MG MG Ambien 5 MG Ambien 5 MG No 1{table QD Ambien 5 t_at_be MG dtime} Augmentin Augmentin No 1{table BID Augmentin 500-125 MG 500-125 MG t} 500-125 MG amLODIPine amLODIPine No 1{table QD amLODIPine Besylate 5 Besylate 5 t} Besylate 5 MG MG MG Astelin Astelin No Astelin Metoprolol Metoprolol No QD Metoprolol Succinate Succinate Succinate 50 MG 50 MG 50 MG Lasix 20 MG Lasix 20 MG No 1{table Lasix 20 t} MG Flonase 50 Flonase 50 No 2{spray QD Flonase 50 MCG/ACT MCG/ACT _in_eac MCG/ACT h_nostr il} Esomeprazol Esomeprazol No Esomeprazo e Magnesium e Magnesium le 40 MG 40 MG Magnesium 40 MG Montelukast Montelukast No Montelukas Sodium 10 Sodium 10 t Sodium MG MG 10 MG Zithromax Zithromax No Zithromax 500 MG 500 MG 500 MG Tessalon Tessalon No 1{capsu TID Tessalon Perles 100 Perles 100 le_as_n Perles 100 MG MG eeded} MG amLODIPine amLODIPine No 1{table QD amLODIPine Besylate 5 Besylate 5 t} Besylate 5 MG MG MG Erythromyci Erythromyci No 1{appli QID Erythromyc n 5 MG/GM n 5 MG/GM cation} in 5 MG/GM Lasix 20 MG Lasix 20 MG No 1{table Lasix 20 t} MG Scandia Scandia No 1{table QID Scandia 325-10 MG 325-10 MG t_as_ne 325-10 MG eded} Ventolin Ventolin No 2{puffs QID Ventolin HFA 108 (90 HFA 108 (90 _as_nee HFA 108 Base) Base) ded} (90 Base) MCG/ACT MCG/ACT MCG/ACT Albuterol Albuterol No Albuterol Sulfate HFA Sulfate HFA Sulfate 108 (90 108 (90 HFA 108 Base) Base) (90 Base) MCG/ACT MCG/ACT MCG/ACT hydroCHLORO hydroCHLORO No hydroCHLOR thiazide thiazide Othiazide 12.5 MG 12.5 MG 12.5 MG Cyclobenzap Cyclobenzap No 1{table TID Cyclobenza rine HCl 10 rine HCl 10 t_as_ne kye HCl MG MG eded} 10 MG NexIUM 20 NexIUM 20 No 1{capsu QD NexIUM 20 MG MG le} MG Augmentin Augmentin No 1{table BID Augmentin 875-125 MG 875-125 MG t} 875-125 MG Meclizine Meclizine No 1{table BID Meclizine HCl 25 MG HCl 25 MG t_as_ne HCl 25 MG eded} Acidophilus Acidophilus No Acidophilu - - s - Aspir-81 81 Aspir-81 81 No 1{table QD Aspir-81 MG MG t} 81 MG Rosuvastati Rosuvastati No Rosuvastat n Calcium n Calcium in Calcium 10 MG 10 MG 10 MG Valsartan Valsartan No Valsartan 320 MG 320 MG 320 MG hydroCHLORO hydroCHLORO No 1{table QD hydroCHLOR thiazide thiazide t_in_th Othiazide 12.5 MG 12.5 MG e_morni 12.5 MG ng} Erythromyci Erythromyci No 1{appli QID Erythromyc n 5 MG/GM n 5 MG/GM cation} in 5 MG/GM ZyrTEC ZyrTEC No 1{table QD ZyrTEC Allergy 10 Allergy 10 t} Allergy 10 MG MG MG Meclizine Meclizine No 1{table BID Meclizine HCl 25 MG HCl 25 MG t_as_ne HCl 25 MG eded} Rosuvastati Rosuvastati No Rosuvastat n Calcium n Calcium in Calcium 10 MG 10 MG 10 MG Zithromax Zithromax No Zithromax 500 MG 500 MG 500 MG Astelin Astelin No Astelin Tessalon Tessalon No 1{capsu TID Tessalon Perles 100 Perles 100 le_as_n Perles 100 MG MG eeded} MG Aspir-81 81 Aspir-81 81 No 1{table QD Aspir-81 MG MG t} 81 MG Flonase 50 Flonase 50 No 2{spray QD Flonase 50 MCG/ACT MCG/ACT _in_eac MCG/ACT h_nostr il} Acidophilus Acidophilus No Acidophilu - - s - Cyclobenzap Cyclobenzap No 1{table TID Cyclobenza rine HCl 10 rine HCl 10 t_as_ne kye HCl MG MG eded} 10 MG Esomeprazol Esomeprazol No Esomeprazo e Magnesium e Magnesium le 40 MG 40 MG Magnesium 40 MG amLODIPine amLODIPine No 1{table QD amLODIPine Besylate 5 Besylate 5 t} Besylate 5 MG MG MG Crestor 10 Crestor 10 No QD Crestor 10 MG MG MG Lasix 20 MG Lasix 20 MG No 1{table Lasix 20 t} MG Ambien 5 MG Ambien 5 MG No 1{table QD Ambien 5 t_at_be MG dtime} Scandia Scandia No 1{table QID Scandia 325-10 MG 325-10 MG t_as_ne 325-10 MG eded} Lasix 20 MG Lasix 20 MG No 1{table Lasix 20 t} MG NexIUM 20 NexIUM 20 No 1{capsu QD NexIUM 20 MG MG le} MG amLODIPine amLODIPine No 1{table QD amLODIPine Besylate 5 Besylate 5 t} Besylate 5 MG MG MG Valsartan Valsartan No Valsartan 320 MG 320 MG 320 MG Augmentin Augmentin No 1{table BID Augmentin 875-125 MG 875-125 MG t} 875-125 MG Ventolin Ventolin No 2{puffs QID Ventolin HFA 108 (90 HFA 108 (90 _as_nee HFA 108 Base) Base) ded} (90 Base) MCG/ACT MCG/ACT MCG/ACT Astelin Astelin No Astelin Tessalon Tessalon No 1{capsu TID Tessalon Perles 100 Perles 100 le_as_n Perles 100 MG MG eeded} MG hydroCHLORO hydroCHLORO No 1{table QD hydroCHLOR thiazide thiazide t_in_th Othiazide 12.5 MG 12.5 MG e_morni 12.5 MG ng} Erythromyci Erythromyci No 1{appli QID Erythromyc n 5 MG/GM n 5 MG/GM cation} in 5 MG/GM Flonase 50 Flonase 50 No 2{spray QD Flonase 50 MCG/ACT MCG/ACT _in_eac MCG/ACT h_nostr il} Acidophilus Acidophilus No Acidophilu - - s - Rosuvastati Rosuvastati No Rosuvastat n Calcium n Calcium in Calcium 10 MG 10 MG 10 MG Immunizations Ordered Immunization Filled Immunization Date Status Commen ts Source Name Name Shannan Campbell 2019-03-21 Completed [facility] (Triamcinolone) (Triamcinolone) 14:52:00 [facility] Shannan Campbell 2019-03-21 Completed [facility] (Triamcinolone) (Triamcinolone) 14:52:00 [facility] Shannan Campbell 2019-03-21 Completed [facility] (Triamcinolone) (Triamcinolone) 14:52:00 [facility] Shannan Campbell 2019-03-21 Completed [facility] (Triamcinolone) (Triamcinolone) 14:52:00 [facility] Shannan Campbell 2019-03-21 Completed [facility] (Triamcinolone) (Triamcinolone) 14:52:00 [facility] Shannan Campbell 2019-03-21 Completed [facility] (Triamcinolone) (Triamcinolone) 14:52:00 [facility] Shannan Campbell 2018-08-19 Completed [facility] (Triamcinolone) (Triamcinolone) 09:46:00 [facility] I [facility] 2018-08-19 Completed [facility] (Triamcinolone) (Triamcinolone) 09:46:00 - I [facility] 2018-08-19 Completed [facility] (Triamcinolone) (Triamcinolone) 09:46:00 - I [facility] 2018-08-19 Completed [facility] (Triamcinolone) (Triamcinolone) 09:46:00 - I [facility] 2018-08-19 Completed [facility] (Triamcinolone) (Triamcinolone) 09:46:00 - I [facility] 2018-08-19 Completed [facility] (Triamcinolone) (Triamcinolone) 09:46:00 - I [facility] Vital Signs Vital Name Observation Time Observation Value Comments Source Systolic blood 2022-11-17 20:15:00 144 mm[Hg] [facility] of pressure [facility] Diastolic blood 2022-11-17 20:15:00 99 mm[Hg] [facility] 2022-11-17 20:15:00 79 /min [facility] Body temperature 2022-11-17 20:15:00 36.72 [facility] Respiratory rate 2022-11-17 20:15:00 [facility] 2022-11-17 20:15:00 162.6 cm [facility] Body weight 2022-11-17 20:15:00 108.863 kg [facility] BMI 2022-11-17 20:15:00 41.20 kg/m2 [facility] Systolic blood 2022-09-22 20:42:00 139 mm[Hg] [facility] of [facility] Diastolic blood 2022-09-22 20:42:00 73 mm[Hg] [facility] Heart rate 2022-09-22 20:42:00 75 /min [facility] Body temperature 2022-09-22 20:42:00 36.72 [facility] Respiratory rate 2022-09-22 20:42:00 18 /min [facility] Body height 2022-09-22 20:42:00 162.6 cm [facility] Body weight 2022-09-22 20:42:00 107.502 kg [facility] BMI 2022-09-22 20:42:00 40.68 kg/m2 [facility] Systolic blood 2022-09-08 19:26:00 139 mm[Hg] [facility] Diastolic blood 2022-09-08 19:26:00 87 mm[Hg] Unive rsity of pressure [facility] Heart rate 2022-09-08 19:26:00 68 /min [facility] Body temperature 2022-09-08 19:26:00 36.83 [facility] [facility] Respiratory rate 2022-09-08 19:26:00 19 /min [facility] Body height 2022-09-08 19:26:00 162.6 cm [facility] Body weight 2022-09-08 19:26:00 106.232 kg [facility] BMI 2022-09-08 19:26:00 40.20 kg/m2 [facility] Heart rate 2022-08-24 20:00:00 59 /min [facility] Oxygen saturation in 2022-08-24 20:00:00 94 /min [facility] blood by [facility] Pulse oximetry Branch Systolic blood 2022-08-24 19:55:00 147 mm[Hg] [facility] Diastolic blood 2022-08-24 19:55:00 60 mm[Hg] Unive rsity of pressure [facility] Respiratory rate 2022-08-24 19:55:00 16 /min [facility] Body temperature 2022-08-24 18:25:00 36.28 [place] [facility] Body weight 2022-08-22 16:00:00 105.688 kg [facility] BMI 2022-08-22 16:00:00 39.99 kg/m2 [facility] Systolic blood 2022-08-24 13:59:00 177 mm[Hg] [facility] Diastolic blood 2022-08-24 13:59:00 79 mm[Hg] [facility] Heart rate 2022-08-24 13:59:00 72 /min [facility] Body temperature 2022-08-24 13:59:00 36.83 [place] [facility] Respiratory rate 2022-08-24 13:59:00 18 /min [facility] Oxygen saturation in 2022-08-24 13:59:00 99 /min [facility] Arterial blood by [facility] Pulse oximetry Branch Body weight 2022-08-22 16:00:00 105.688 kg [facility] BMI 2022-08-22 16:00:00 39.99 kg/m2 [facility] Systolic blood 2022-08-04 14:27:00 138 mm[Hg] [facility] Diastolic blood 2022-08-04 14:27:00 73 mm[Hg] [facility] Heart rate 2022-08-04 14:26:00 64 /min [facility] Body temperature 2022-08-04 14:26:00 36.72 [facility] Respiratory rate 2022-08-04 14:26:00 18 /min [facility] Body height 2022-08-04 14:26:00 162.6 cm [facility] Body weight 2022-08-04 14:26:00 105.688 kg [facility] BMI 2022-08-04 14:26:00 39.99 kg/m2 [facility] Systolic blood 2022-07-28 19:34:00 161 mm[Hg] [facility] Diastolic blood 2022-07-28 19:34:00 88 mm[Hg] [facility] Heart rate 2022-07-28 19:31:00 88 /min [facility] Body temperature 2022-07-28 19:31:00 36.56 [facility] Respiratory rate 2022-07-28 19:31:00 18 /min [facility] Body height 2022-07-28 19:31:00 162.6 cm [facility] Body weight 2022-07-28 19:31:00 105.688 kg [facility] BMI 2022-07-28 19:31:00 39.99 kg/m2 [facility] Systolic blood 2022-07-26 19:36:00 145 mm[Hg] [facility] Diastolic blood 2022-07-26 19:36:00 85 mm[Hg] [facility] Heart rate 2022-07-26 19:36:00 68 /min [facility] Body temperature 2022-07-26 19:36:00 36.67 [facility] [facility] Body height 2022-07-26 19:36:00 162.6 cm [facility] Body weight 2022-07-26 19:36:00 105.87 kg [facility] [place] [facility] BMI 2022-07-26 19:36:00 40.06 kg/m2 [facility] [place] [facility] Systolic blood 2022-07-17 15:19:00 144 mm[Hg] [facility]iver [facility] [place] [facility] Diastolic blood 2022-07-17 15:19:00 90 mm[Hg] Unive [facility] Heart rate 2022-07-17 15:18:00 50 /min [facility] [place] [facility] Body temperature 2022-07-17 15:18:00 36.83 Jena Univ [facility] Respiratory rate 2022-07-17 15:18:00 18 /min Univ [facility] [place] [facility] Body height 2022-07-17 15:18:00 162.6 cm [facility] [place] [facility] Body weight 2022-07-17 15:18:00 105.688 kg [facility] [place] [facility] BMI 2022-07-17 15:18:00 39.99 kg/m2 [facility] [place] [facility] Systolic blood 2022-07-13 21:14:00 131 mm[Hg] [facility] [place] [facility] Diastolic blood 2022-07-13 21:14:00 83 mm[Hg] Unive rsity of [facility] Heart rate 2022-07-13 21:14:00 77 /min Universi ty of [facility] Body temperature 2022-07-13 21:14:00 36.83 Jena Univ [facility] Respiratory rate 2022-07-13 21:14:00 18 /min Univ ersity of [facility] Body height 2022-07-13 21:14:00 162.6 cm Universi ty of [facility] Body weight 2022-07-13 21:14:00 105.688 kg Universi ty of [facility] BMI 2022-07-13 21:14:00 39.99 kg/m2 [facility] Systolic blood 2022-06-06 20:42:00 172 mm[Hg] Univer sity of pressure [facility] Diastolic blood 2022-06-06 20:42:00 83 mm[Hg] Unive rsity of pressure [facility] Heart rate 2022-06-06 20:42:00 65 /min Universi ty of [facility] Body temperature 2022-06-06 20:42:00 36.83 Jena Univ ersity of [facility] Respiratory rate 2022-06-06 20:42:00 18 /min Univ ersity of [facility] Body height 2022-06-06 20:42:00 162.6 cm Universi ty of [facility] Body weight 2022-06-06 20:42:00 105.87 kg Universi ty of [facility] BMI 2022-06-06 20:42:00 40.06 kg/m2 Universi [facility] of [facility] height 2022-02-10 08:00:00 64.5 [in_i] [facility] weight 2022-02-10 08:00:00 226 [lb_av] Common S [facility] bmi 2022-02-10 08:00:00 38.19 kg/m2 Common S [facility] height 2021-08-19 12:10:00 64.5 [in_i] Common [facility] weight 2021-08-19 12:10:00 226 [lb_av] Common [facility] temperature 2021-08-19 12:10:00 99.1 [degF] [facility] bmi 2021-08-19 12:10:00 38.19 kg/m2 Common [facility] height 2021-07-06 11:40:00 64.50 [in_i] Common [facility] weight 2021-07-06 11:40:00 226 [lb_av] Common [facility] bmi 2021-07-06 11:40:00 38.19 kg/m2 [facility] height 2021-04-08 16:20:00 64.50 [in_i] [facility] weight 2021-04-08 16:20:00 226.2 [lb_av] [facility] temperature 2021-04-08 16:20:00 96.9 [degF] [facility] bmi 2021-04-08 16:20:00 38.22 kg/m2 [facility] oximetry 2021-04-08 16:20:00 95 % [facility] respiratory rate 2021-04-08 16:20:00 19 /min Comm on [facility] blood pressure 2021-04-08 16:20:00 150 mm[Hg] [facility] - systolic [facility] blood pressure 2021-04-08 16:20:00 70 mm[Hg] [facility] - diastolic [facility] Systolic blood 2019-04-08 16:01:00 157 mm[Hg] Univer sity of [facility] Diastolic blood 2019-04-08 16:01:00 90 mm[Hg] Unive rsity of [facility] Heart rate 2019-04-08 16:01:00 80 /min Universi [facility] Body temperature 2019-04-08 16:01:00 36.83 Jena Univ ersity [facility] Respiratory rate 2019-04-08 16:01:00 18 /min [facility] Body height 2019-04-08 16:01:00 167.6 cm Universi ty [facility] [place] Body weight 2019-04-08 16:01:00 106.414 kg Universi ty [facility] BMI 2019-04-08 16:01:00 37.87 kg/m2 Universi ty [facility] Systolic blood 2019-03-11 13:52:00 154 mm[Hg] [facility] [place] [facility] [place] Diastolic blood 2019-03-11 13:52:00 87 mm[Hg] Unive rsity of [facility] Heart rate 2019-03-11 13:52:00 80 /min Universi ty [facility] Body temperature 2019-03-11 13:52:00 36.83 Jena [facility] Respiratory rate 2019-03-11 13:52:00 18 /min [facility] Body height 2019-03-11 13:52:00 167.6 cm Universi ty [facility] Body weight 2019-03-11 13:52:00 107.956 kg Universi ty [facility] BMI 2019-03-11 13:52:00 38.41 kg/m2 [facility] Procedures Procedure Date / Time Performing Clinician Source Performed [facility] PATIENT FINANCIAL 2022-09-22 20:26:39 Doctor Unassigned, [facility] POLICY [facility] POCT URINALYSIS W/O 2022-09-22 00:00:00 Concha Jackson [facility] SPECIFIC GRAVITY [facility] HYSTEROSCOPY 2022-08-24 16:23:00 AdLesley maradiaga [place] o [facility] POLYPECTOMY 2022-08-24 16:23:00 AdLesley maradiaga [place] o [facility] DILATION AND CURETTAGE 2022-08-24 16:23:00 Lesley Johnson [facility] DAY SURGERY - ADC 2022-08-24 06:01:00 Doctor Giovanni, [facility] MEDICAL RELEASE/CLEARANCE 2022-08-10 06:01:00 Doctor Unassigned, [facility] FORMS [facility] MEDICAL RELEASE/CLEARANCE 2022-08-10 06:01:00 Doctor Unassigned, [facility] FORMS [facility] MEDICAL RELEASE/CLEARANCE 2022-08-04 06:01:00 Doctor Giovanni, [facility] FORMS [facility] DSU PRE-OP 2022-08-04 06:01:00 Doctor Giovanni [facility] MEDICAL RELEASE/CLEARANCE 2022-08-04 06:01:00 Doctor Unabrittnee [facility] FORMS [facility] DSU PRE-OP 2022-08-04 06:01:00 Doctor Giovanni [facility] POCT URINALYSIS W/O 2022-07-28 00:00:00 Concha Jackson [facility] SPECIFIC GRAVITY Medical Branch DISCLOSURE AND CONSENT, 2022-07-26 06:01:00 Doctor Giovanni [facility] MEDICAL AND SURGICAL [facility] PROCEDURES POCT TEST 2022-07-26 00:00:00 Tommy Jesus [facility] [place] XR KNEE 4+ VW RIGHT 2022-07-17 22:32:05 Trae Sweeney [facility] [place] ARTHROCENTESIS 2022-07-17 21:30:00 Nitin Tanner [facility] ASPIR&/INJ MAJOR JT/BURSA W/O US US PELVIS COMPLETE WITH 2022-07-06 20:02:30 Mai Dodge [facility] TRANSVAGINAL Medical Branch CONSENT/REFUSAL FOR 2022-07-06 18:57:24 Doctor Giovanni, [facility] DIAGNOSIS AND TREATMENT [facility] ASSIGNMENT OF BENEFITS 2022-07-06 18:57:08 Doctor Unajjigned, [facility] THYROID STIMULATING 2022-06-06 21:27:00 Mai Dodge [facility] HORMONE Medical Branch CBC WITH DIFF 2022-06-06 21:27:00 Echo Mai [place] o [facility] [place] [facility] [place] ASSIGNMENT OF BENEFITS 2022-06-06 20:19:19 Doctor Unassigned, Un [facility] XR KNEE 4+ VW LEFT 2022-05-02 19:36:26 Trae Sweeney [facility] [place] ARTHROCENTESIS 2022-05-02 19:00:00 Trae Sweeney [facility] ASPIR&/INJ MAJOR JT/BURSA W/O US BILATERAL VENOUS DUPLEX 2019-03-11 13:16:58 Francine Rob [facility] [place] LOWER [facility]TREMITY BY Medical Bran h VASCULAR LAB Plan of Care Planned Activity Planned Date Details Comments Source Future Scheduled 2022-11-25 COVID-19 VACCINE (#1) [facility] Test 23:55:17 [code = COVID-19 VACCINE (#1)] Future Scheduled 2022-11-25 65+ [facility]OCOCCAL [facility] 23:55:17 VACCINE (1 - PCV) [code = 65+ PNEUMOCOCCAL VACCINE (1 - PCV)] Future Scheduled 2022-11-25 Hepatitis C screening [facility] Test 23:55:17 (procedure) [code = 599487944] Future Scheduled 2022-11-25 SHINGLES VACCINES (1 [facility] Test 23:55:17 of 2) [code = SHINGLES VACCINES (1 of 2)] Future Scheduled 2022-11-25 Screening for [facility] Test 23:55:17 malignant neoplasm of cervix (procedure) [code = 973014736] Future Scheduled 2022-11-25 BREAST CANCER [facility] Test 23:55:17 SCREENING [code = BREAST CANCER SCREENING] Future Scheduled 2022-11-25 COLONOSCOPY SCREENING [facility] Test 23:55:17 [code = COLONOSCOPY SCREENING] Future Scheduled 2022-11-25 INFLUENZA VACCINE [facility] Test 23:55:17 [code = INFLUENZA VACCINE] Future Scheduled 2022-04-24 HEPATITIS B VACCINES [facility] Test 10:23:39 (1 of 3 - 3-dose series) [code = HEPATITIS B VACCINES (1 of 3 - 3-dose series)] Future Scheduled 2022-04-24 COVID-19 VACCINE (#1) [facility] Test 10:23:39 [code = COVID-19 VACCINE (#1)] Future Scheduled 2022-04-24 Hepatitis C screening [facility] Test 10:23:39 (procedure) [code = 724048284] Future Scheduled 2022-04-24 Screening for [facility] Test 10:23:39 malignant neoplasm of cervix (procedure) [code = 050883791] Future Scheduled 2022-04-24 BREAST CANCER [facility] Test 10:23:39 SCREENING [code = BREAST CANCER SCREENING] Future Scheduled 2022-04-24 COLONOSCOPY SCREENING [facility] Test 10:23:39 [code = COLONOSCOPY SCREENING] Future Scheduled 2022-04-24 SHINGLES VACCINES (1 Met [facility] Test 10:23:39 of 2) [code = SHINGLES VACCINES (1 of 2)] Future Scheduled 2022-04-24 65+ P[facility]UMOCOCCAL [facility] Test 10:23:39 VACCINE (1 - PCV) [code = 65+ PNEUMOCOCCAL VACCINE (1 - PCV)] Future Scheduled 2022-04-24 INFLUENZA VACCINE [facility] Test 10:23:39 [code = INFLUENZA VACCINE] Encounters Start End Encounter Admission Attending Care Care Encounter Source Date/Time Date/Time Type Type Clinicians Facility Department ID 2022-09-15 Outpatient Odalys, STLMLC STLMLC [id number] Common 14:32:00 Kathryn [id number] [facility] 2022-04-17 Outpatient Cortes, Na STLMLC STLMLC [id number] 2 Common 10:39:00 [id number] [facility] 2022-03-28 Outpatient Cortes, Na STLMLC STLMLC [id number] 2 Common 09:22:00 [id number] [facility] 2022-02-09 Outpatient Cortes, Na STLMLC STLMLC [id number] 2 Common 16:03:00 [id number] [facility] 2021-08-24 Outpatient Cortes, Na STLMLC STLMLC [id number] 2 Common 14:21:01 [id number] [facility] 2021-08-24 Outpatient Cortes, Na STLMLC STLMLC [id number] 2 Common 13:48:14 [id number] [facility] 2021-08-24 Outpatient Cortes, Na STLMLC STLMLC [id number] 2 Common 11:39:12 [id number] [facility] 2021-08-24 Outpatient Cortes, Na STLMLC STLMLC [id number] 2 Common 11:35:54 [id number] [facility] 2021-08-24 Outpatient Cortes, Na STLMLC [facility] [id number] 2 Common 11:35:34 [id number] [facility] 2021-08-24 Outpatient Claudette Cortes STULISES [facility] [id number] 2 Common 11:06:09 [id number] [facility] 2021-08-24 Outpatient Claudette Cortes STULISES [facility] [id number] 2 Common 10:59:13 [id number] [facility] 2023-07-06 2023-07-06 Outpatient R CONCHA JACKSON [facility] [id number] Univers 14:30:00 14:30:[address] [facility] 2022-12-12 2022-12-12 Outpatient R ECHO [facility] [id number] Univers 00:00:00 00:00:00 [facility] 2022-11-20 2022-11-20 Outpatient R ECHO [facility] [id number] Univers 00:00:00 00:00:[address] [facility] 2022-11-17 2022-11-17 Outpatient R CONCHA JACKSON [facility] [id number] Univers 15:00:00 15:37:[address] [facility] 2022-11-17 2022-11-17 Office [facility] 1.2.840.114 [id number] Univers 15:00:00 15:37:52 Visit Concha RODRIGUEZ 350.1.13.10 willa [facility] 4.2.7.2.686 Anum HESS [id number] [place] [address] 2022-11-06 2022-11-06 Outpatient R CONCHA JACKSON [facility] [id number] Univers 14:30:00 14:30:00 CONCHA JACKSON zita [facility] 2022-10-25 2022-10-25 Outpatient R TOMMY JESUS [facility] [id number] Univers 15:00:00 15:00:00 [facility] 2022-10-18 2022-10-18 Telephone [facility] [id number] Univers 00:00:00 00:00:00 Lesley Schilling MICHAEL 350.1.13.10 [place] [id number] [place] dical NAL 134 [facility] 2022-10-12 2022-10-12 [facility] [id number] Univers 00:00:00 00:00:[address] [facility] 2022-10-05 2022-10-05 [facility] [id number] Univers 00:00:00 00:00:[address] [facility] 2022-09-22 2022-09-22 Outpatient [facility] [id number] Univers 14:30:00 15:19:[address] [facility] 2022-09-22 2022-09-22 Office [facility] 1.2.840.114 [id number] Univers 14:30:00 15:19:39 Visit Concha RODRIGUEZ 350.1.13.10 i [place] [id number] [place] dical NAL 098 [facility] 2022-09-22 2022-09-22 Orders Doctor PAVAN 1.2.840.114 [id number] Univers 00:00:00 00:00:00 Only Unassigned, DELMER 350.1.13.10 [place] [facility] 4.2.7.2.686 Renato as [id number] [address] 2022-09-22 2022-09-22 Telephone [facility] 1.2.840.114 [id number] Univers 00:00:00 00:00:00 Concha MICHAEL 350.1.13.10 [place] [id number] [place] dical NAL 098 [facility] 2022-09-13 2022-09-13 Outpatient [facility] [id number] Univers 00:00:00 00:00:00 MAI melton [facility] 2022-09-08 2022-09-08 Outpatient R [facility] [id number] Univers 13:15:00 14:05:17 LESLEY ity [facility] 2022-09-08 2022-09-08 Office [facility] 1.2.840.114 [id number] Univers 13:15:00 14:05:17 Visit Lesley RODRIGUEZ 350.1.13.10 it[place] [id number] [place] dical NAL [address] [place] [address] 2022-08-31 2022-08-31 Telephone [facility] [id number] [id number] Univers 00:00:00 00:00:00 Lesley RODRIGUEZ 350.1.13.10 [facility] [place] [id number] [place] dical NAL [address] [place] [address] 2022-08-30 2022-08-30 [facility] [id number] Univers 00:00:00 00:00:00 MAI itzita 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 2022-08-24 2022-08-24 [facility] 1.2.840.114 [id number] Univers 07:45:00 14:10:00 Encounter Lesley Schilling YARELISTON 350.1.13.10 [place]ICAL [id number] [facility] [address] [place] 2022-08-24 2022-08-24 Surgery [facility] 1.2.840.114 [id number] Univers 09:45:00 11:30:00 Lesley Schilling [place] 350.1.13.10 it[place]ICAL [id number] [facility] [address] Branch 2022-08-24 2022-08-24 Orders Doctor BROWNE 1.2.840.114 [id number] Univers 00:00:00 00:00:00 Only Unassigned, DEL[place] 350.1.13.10 [place] of [place] [facility] 4.2.7.2.686 Renato as [id number] [address] 2022-08-22 2022-08-22 Pet Care Technician 2, Adc Lab [facility] 1.2.840.114 [id number] Univers 13:15:00 13:30:00 Visit Adum, Lesley Tonie RODRIGUEZ 350.1.13.10 [place] [id number] [place] dical NAL 353 [facility] 2022-08-22 2022-08-22 Outpatient R AD, [facility] [id number] Univers 13:15:00 13:15:00 LESLEY ity [facility] 2022-08-15 2022-08-15 Outpatient R [facility] [id number] Univers 13:00:00 13:00:00 ity [facility] 2022-08-15 2022-08-15 Outpatient R [facility] [id number] Univers 11:45:00 11:45:00 ity [facility] 2022-08-04 2022-08-04 Outpatient R ADUM, [facility] [id number] Univers 08:30:00 09:35:35 LESLEY ity [facility] 2022-08-04 2022-08-04 Office [facility] 1.2.840.114 [id number] Univers 08:30:00 09:35:35 Visit Lesley RODRIGUEZ 350.1.13.10 [place] [id number] [place] dical NAL 134 [facility] 2022-08-04 2022-08-04 Prep For Ad, [facility] 1.2.840.114 [id number] Univers 00:00:00 00:00:00 Surgery Lesley Tonie RODRIGUEZ 350.1.13.10 it[facility] 4.2.[place] [id number] [place] dical NAL 134 [facility] 2022-08-01 2022-08-01 Refill Manuel [facility] 1.2.840.114 [id number] Univers 00:00:00 00:00:00 Concha RODRIGUEZ 350.1.13.10 i ty [facility] 4.[place] [id number] [place] dical NAL 098 [facility] 2022-07-28 2022-07-28 Outpatient [facility] [id number] Univers 13:00:00 14:27:21 CONCHA ity [facility] 2022-07-28 2022-07-28 Office [facility] 1.2.840.114 [id number] Univers 13:00:00 14:27:21 Visit Concha SANTOYOBOGDAN 350.1.13.10 i ty [facility] 4.[place] [id number] [place] dicks NAL [address] [place] [address] 2022-07-26 2022-07-26 Outpatient R EDIN TOMMY [facility] [id number] Univers 13:45:00 14:19:16 ity [facility] 2022-07-26 2022-07-26 Office Edin [facility] [id number] [id number] Univers 13:45:00 14:19:16 Visit Dg RODRIGUEZ 350.1.13.10 i ty [facility] 4.[place] [id number] [place] dical NAL 134 [facility] 2022-07-26 2022-07-26 Orders Doctor BROWNE 1.2.840.114 [id number] Univers 00:00:00 00:00:00 Only Unassigned, [place] 350.1.13.10 [place] [facility] 4.2.7.2.686 Renato as [id number] [address] 2022-07-20 2022-07-20 Outpatient R ECHO [facility] [id number] Univers 00:00:00 00:00:00 MAI ity [facility] 2022-07-17 2022-07-17 Office Patel 1.2.840.1 [id number] Methodi 15:30:00 17:16:41 Visit Trae 60473.1.1 040 [facility] 3.430.2.7 Hospit a .[id number] l .8 2022-07-17 2022-07-17 Outpatient R ECHO [facility] [id number] Univers 09:00:00 09:45:24 MAI melton [facility] 2022-07-17 2022-07-17 Office Echo [facility] 1.2.370.579 [id number] Univers 09:00:00 09:45:24 Visit Mai RODRIGUEZ 350.1.13.10 i [place] [id number] [place] dical NAL [address] [place] [address] 2022-07-17 2022-07-17 Travel 1.2.840.1 [id number] [id number] Methodi 00:00:00 00:00:[address] 3.430.2.7 0.2.7.3.698 Ho spita .3.580405 084.8 l .8 2022-07-17 2022-07-17 Outpatient BOREMMETT, [facility] [id number] [place] 00:00:00 00:00:00 TRAE 040 Method i 2022-07-17 2022-07-17 [facility]patient [facility] [id number] [place] 00:00:00 00:00:00 TRAE 145 Method i 2022-07-14 2022-07-14 Telephone Echo [facility] 1.2.840.114 [id number] Univers 00:00:00 00:00:00 Mai RODRIGUEZ 350.1.13.10 i [place] [id number] [place] dical NAL [address] [place] [address] 2022-07-13 2022-07-13 Outpatient R ECHO [facility] [id number] Univers 15:30:00 15:54:50 MAI melton [facility] 2022-07-13 2022-07-13 Office Echo [facility] 1.2.276.436 [id number] Univers 15:30:00 15:54:50 Visit Mai RODRIGUEZ 350.1.13.10 i [place] [id number] [place] dical [facility] 134 [facility] 2022-07-06 2022-07-06 Outpatient R ECHO [facility] [id number] Univers 12:57:47 23:59:00 MAI melton [facility] 2022-07-06 2022-07-06 [facility] 1.2.840.114 [id number] Univers 12:57:47 23:59:00 Encounter Mai SANTOYOBOGDAN 350.1.13.10 [place] C[place] [id number] [facility] [address] [place] 2022-07-06 2022-07-06 Orders Doctor PAVAN 1..840.114 [id number] Univers 00:00:00 00:00:00 Only Unassigned, [place] 350.1.13.10 ity of [place] [facility] 4.2.7.2.686 Renato as [id number] [facility] [address] [place] 2022-06-19 2022-06-19 [facility] [id number] Univers 13:15:00 13:15:00 MAI itzita [facility] 2022-06-15 2022-06-15 [facility] [id number] Univers 00:00:00 00:00:00 MAI linh [facility] 2022-06-12 2022-06-12 [facility] [id number] Univers 00:00:00 00:00:00 MAI mayszita [facility] 2022-06-07 2022-06-07 Telephone [facility] 1.2.840.114 [id number] Univers 00:00:00 00:00:00 Mai MICHAEL 350.1.13.10 i [place] [id number] [place] dical NAL [address] [place] [address] 2022-06-06 2022-06-06 Pet Care Technician 2, Adc Lab [facility] 1.2.840.114 [id number] Univers 15:30:00 16:19:06 Visit Mai Dodge 350.1.13.10 [place] [id number] [place] dical NAL 353 [facility] 2022-06-06 2022-06-06 Out[facility] [id number] Univers 14:30:00 15:12:44 MAI ity [facility] 2022-06-06 2022-06-06 Office [facility] 1.2.940.741 [id number] Univers 14:30:00 15:00:00 Visit Mai MICHAEL 350.1.13.10 i ty [facility] [place] [id number] [place] dical NAL 134 [facility] 2022-06-06 2022-06-06 Orders Doctor BROWNE 1.2.840.114 [id number] [employer] 00:00:00 00:00:00 Only Unassigned, DELMER 350.1.13.10 ity of [facility] 4.2.7.2.686 Renato as [phone] [address] 2022-05-31 2022-05-31 (TEL) STLMLC STLMLC [id number] Co mmon 00:00:00 00:00:00 [facility] 2022-05-25 2022-05-25 (TEL) STLMLC STLMLC [id number] Co mmon 00:00:00 00:00:00 [facility] 2022-05-02 2022-05-02 Office Patel 1.2.840.1 [id number] Methodi 14:00:00 16:52:25 Visit Trae 05863.1.[address] [place] 3.430.2.7 Hospit a .3.277746 l .8 2022-05-02 2022-05-02 Travel 1.2.840.1 1.2.214.606 [id number] Methodi 00:00:00 00:00:[address] 3.430.2.7 0.2.7.3.698 Ho spita .3.158807 084.8 l .8 2022-05-02 2022-05-02 Outpatient [facility] [id number] [place] 00:00:00 00:00:[address] 2022-05-02 2022-05-02 Outpatient [facility] [id number] [place] 00:00:00 00:00:[address] TRAE [address] 2022-04-24 2022-04-24 Travel 1.2.840.1 1.2.160.997 [id number] Methodi 00:00:00 00:00:[address] 3.430.2.7 0.2.7.3.698 Ho spita .3.809455 084.8 l .8 2022-04-24 2022-04-24 Travel 1.2.840.1 1.2.890.333 9006 [id number] Methodi 00:00:00 00:00:[address] 3.430.2.7 0.2.7.3.698 Ho spita .3.050361 084.8 l .8 2022-02-10 2022-02-10 OFFICE STLMLC STLMLC [id number] Co mmon 00:00:00 00:00:00 VISIT EST Spir it PT LEVEL 3 - [facility] 2022-02-09 2022-02-09 (TEL) STLMLC STLMLC [id number] Co mmon 00:00:00 00:00:00 [facility] 2021-08-19 2021-08-19 (TEL) STLMLC STLMLC [id number] Co mmon 00:00:00 00:00:00 [facility] 2021-08-19 2021-08-19 OFFICE STLMLC STLMLC [id number] Co mmon 00:00:00 00:00:00 VISIT EST Spir it PT LEVEL 3 - [facility] 2021-07-062021-07-06 (TEL) STLMLC STLMLC [id number] Co mmon 00:00:00 00:00:00 [facility] 2021-07-06 2021-07-06 OFFICE STLMLC STLMLC [id number] Co mmon 00:00:00 00:00:00 VISIT EST Spir it PT LEVEL 3 [facility] 2021-06-07 2021-06-07 (TEL) STLMLC STLMLC [id number] Co mmon 00:00:00 00:00:00 [facility] 2021-05-25 2021-05-25 OFFICE STLMLC STLMLC [id number] Co mmon 00:00:00 00:00:00 VISIT EST Spir it PT LEVEL 3 [facility] 2021-04-18 2021-04-18 (TEL) STLMLC STLMLC [id number] Co mmon 00:00:00 00:00:00 [facility] 2021-04-08 2021-04-08 (ESTPT) STLMLC STLMLC [id number] Co mmon 00:00:00 00:00:00 Establishe Mao rit d Patient [facility] 2021-03-25 2021-03-25 (TEL) STLMLC STLMLC [id number] Co mmon 00:00:00 00:00:00 [facility] 2021-03-22 2021-03-22 (TEL) STLMLC STLMLC [id number] Co mmon 00:00:00 00:00:00 [facility] 2021-02-09 2021-02-09 (TEL) STLMLC STLMLC [id number] Co mmon 00:00:00 00:00:00 [facility] 2020-05-12 2020-05-12 Outpatient STLMLC STLMLC [id number] Common 00:00:00 00:00:00 [facility] 2020-03-10 2020-03-10 [facility] [id number] Common 08:04:00 08:04:[address] [employer] [address] [facility] Medicine [facility] 2020-03-05 2020-03-05 Out[facility] [id number] Common 11:54:00 11:54:[address] [facility] 2020-03-05 2020-03-05 [facility] [id number] Common 10:00:00 10:00:[address] [facility] 2020-03-04 2020-03-04 Out[facility] [id number] Common 10:52:00 10:52:[address] [facility] 2020-02-10 2020-02-10 Out[facility] [id number] Common 09:17:00 09:17:[address] [facility] 2019-10-16 2019-10-16 Out[facility] [id number] Common 10:20:00 10:20:[address] [facility] [address] [facility] 2019-09-29 2019-09-29 Out[facility] [id number] Common 09:17:00 09:17:[address] [facility] 2019-09-10 2019-09-10 Out[facility] [id number] Common 11:08:00 11:08:[address] [facility] 2019-09-08 2019-09-08 Out[facility] [id number] Common 15:00:00 15:00:[address] [facility] 2019-08-07 2019-08-07 Out[facility] [id number] Common 08:40:00 08:40:[address] [facility] 2019-04-08 2019-04-08 Office [facility] 1.2.840.114 [id number] [facility] 10:52:18 11:09:02 Visit Francine Rodriguez 350.1.13.10 [id number] [place] [address] [facility] 2019-03-21 2019-03-21 Out[facility] [id number] Common 13:20:00 13:20:[address] [facility] 2019-03-11 2019-03-11 Hospital Francine Rob [facility] 1.2.[address] .[id number] [facility] [place] [place] 09:52:26 23:59:00 Encounter Kevin Man [facility] Michael 3 50.1.13.10 ity of [place].2.[place] [id number] [facility] [address] 2019-03-11 2019-03-11 Office [facility] 1.2.840.[id number] [facility] [place] [place] 08:38:53 09:13:26 Visit Francine Rodriguez 350.1.13.10 ity of [place] 4[place]2.7.2.[place] [phone] [place] 205 [facility] 2019-03-07 2019-03-07 Out[facility] [id number] Common 14:40:00 14:40:[address] [facility] 2018-10-04 2018-10-04 Out[facility] [id number] Common 15:48:00 15:48:[address] [facility] 2018-08-21 2018-08-21 Out[facility] [id number] Common 11:41:00 11:41:[address] [facility] 2018-08-19 2018-08-19 Out[facility] [id number] Common 08:30:00 08:30:[address] [facility] 2018-08-09 2018-08-09 Out[facility] [id number] Common 09:43:00 09:43:[address] [facility] 2018-07-25 2018-07-25 Out[facility] [id number] Common 15:45:00 15:45:[address] [facility] 2018-07-25 2018-07-25 Out[facility] [id number] Common 08:09:00 08:09:[address] [facility] 2018-01-24 2018-01-24 Out[facility] [id number] Common 15:00:00 15:00:[address] [facility] 2017-11-09 2017-11-09 Out[facility] [id number] Common 08:33:00 08:33:[address] [facility] 2017-11-07 2017-11-07 Out[facility] [id number] Common 14:15:00 14:15:[address] [facility] 2017-10-23 2017-10-23 Out[facility] [id number] Common 10:45:00 10:45:[address] [facility] Results Test Description Test Time Test Comments Results Result Comments Source POCT URINALYSIS W/O SPECIFIC GRAVITY 2022-09-22 20:54:00 Test Item Value Reference Range Interpretation Comme nts POCT PH U (test code = 3254) 5 mg/dl 5-8 POCT U LEUK EST (test code = 3263) neg Negative - Negative POCT U NIT (test code = 3262) neg Negative - Negative POCT U PROT (test code = 3259) trace Negative - Negative POCT U GLU (test code = 3256) neg Negative - Negative POCT U KETONE (test code = 3258) neg Negative - Negative POCT U BLD (test code = 3257) neg Negative - Negative [facility] [id number] 20:54:00 Test Item Value Reference Range Interpretation Comments POCT PH U (test code = 3254) 5 mg/dl 5-8 POCT U LEUK EST (test code = neg Negative - Negative 3263) POCT U NIT (test code = 3262) neg Negative - Negative POCT U PROT (test code = 3259) trace Negative - Negative POCT U GLU (test code = 3256) neg Negative - Negative POCT U KETONE (test code = 3258) neg Negative - Negative POCT U BLD (test code = 3257) neg Negative - Negative [facility] URINALYSIS W/O SPECIFIC [id number] 19:30:00 Test Item Value Reference Range Interpretation Comments POCT PH U (test code = 3254) 6 mg/dl 5-8 POCT U LEUK EST (test code = negative Negative - Negative 3263) POCT U NIT (test code = 3262) negative Negative - Negative POCT U PROT (test code = 3259) negative Negative - Negative POCT U GLU (test code = 3256) negative Negative - Negative POCT U KETONE (test code = 3258) negative Negative - Negative POCT U BLD (test code = 3257) negative Negative - Negative [facility] URINALYSIS W/O SPECIFIC [id number] 19:30:00 Test Item Value Reference Range Interpretation Comments POCT PH U (test code = 3254) 6 mg/dl 5-8 POCT U LEUK EST (test code = negative Negative - Negative 3263) POCT U NIT (test code = 3262) negative Negative - Negative POCT U PROT (test code = 3259) negative Negative - Negative POCT U GLU (test code = 3256) negative Negative - Negative POCT U KETONE (test code = 3258) negative Negative - Negative POCT U BLD (test code = 3257) negative Negative - Negative [facility] URINALYSIS W/O SPECIFIC [id number] 19:30:00 Test Item Value Reference Range Interpretation Comments POCT PH U (test code = 3254) 6 mg/dl 5-8 POCT U LEUK EST (test code = negative Negative - Negative 3263) POCT U NIT (test code = 3262) negative Negative - Negative POCT U PROT (test code = 3259) negative Negative - Negative POCT U GLU (test code = 3256) negative Negative - Negative POCT U KETONE (test code = 3258) negative Negative - Negative POCT U BLD (test code = 3257) negative Negative - Negative [facility] [id number] 19:41:00 Test Item Value Reference Range Interpretation Comments POCT PREG (test code = 1605) Negative On board controls acceptable with C Yes Line (test code = 3574) POCT PREG LOT # (test code = 3575) POCT PREG TEST DATE (test code = 3576) Lab Interpretation (test code = Normal 69506-2) [facility] [id number] 19:41:00 Test Item Value Reference Range Interpretation Comments POCT PREG (test code = 1605) Negative On board controls acceptable with C Yes Line (test code = 3574) POCT PREG LOT # (test code = 3575) POCT PREG TEST DATE (test code = 3576) Lab Interpretation (test code = Normal 39098-1) [facility] [id number] 00:26:47 Test Item Value Reference Range Interpretation Comments TSH (test code = See_Comment Biotin has been [id number]) reported to cau se a negative bias, interpret resul ts relative to pat patricia's use of biotin. [Automated mess age] The system [employer] generated this result transmitted ref erence range: 0.45 - 4 .70 mIU/L. The refe rence range was not u sed to interpret this result as normal/abnor mal. Lab Interpretation (test Normal code = 90406-4) [facility] WITH [id number] 22:46:01 Test Item Value Reference Range Interpretation Comments WBC (test code = See_Comment [Automated 0908-2) message] The sy stem which generated this result transmitted reference range : 4.30 - 11.10 10*3/?L. The reference range was not used to interpret this result as normal/abnormal . RBC (test code = See_Comment [Automated 471-8) message] The sy stem which generated this result transmitted reference range : 3.93 - 5.25 10*6/?L. The reference range was not used to interpret this result as normal/abnormal . HGB (test code = 14.3 g/dL 11.6-15.0 718-7) HCT (test code = 44.6 % 35.7-45.2 4544-3) MCV (test code = 95.5 fL 80.6-95.5 787-2) MCH (test code = 30.6 pg 25.9-32.8 785-6) MCHC (test code = 32.1 g/dL 31.6-35.1 786-4) RDW-SD (test code = 50.2 fL 39.0-49.9 H 74811-4) RDW-CV (test code = 14.3 % 12.0-15.5 788-0) PLT (test code = See_Comment [Automated 777-3) message] The sy stem which generated this result transmitted reference range : 166 - 358 10*3/ ?L. The reference r antoinette was not used to interpret this result as normal/abnormal . MPV (test code = 12.4 fL 9.5-12.9 30562-4) NRBC/100 WBC (test See_Comment [Automat ed code = [id number]) message] The system which generated this result transmitted reference range : 0.0 - 10.0 /100 WBCs. The refer ence range was not u sed to interpret th is result as normal/abnormal . NRBC x10^3 (test code See_Comment [Auto mated = [id number]) message] The s ystem which generated this result transmitted reference range : 10*3/?L. The reference range was not used to interpret this result as normal/abnormal . GRAN MAT (NEUT) % 53.8 % (test code = 770-8) IMM GRAN % (test code 0.40 % = 0248314097) LYMPH % (test code = 34.4 % 736-9) MONO % (test code = 7.7 % 5905-5) EOS % (test code = 3.1 % 713-8) BASO % (test code = 0.6 % 706-2) GRAN MAT x10^3(ANC) 4.99 10*3/uL 1.88-7.09 (test code = 5008668417) IMM GRAN x10^3 (test 0.04 10*3/uL 0.00-0.06 code = 0664042854) LYMPH x10^3 (test code 3.20 10*3/uL 1.32-3.29 = 731-0) MONO x10^3 (test code 0.72 10*3/uL 0.33-0.92 = 742-7) EOS x10^3 (test code = 0.29 10*3/uL 0.03-0.39 711-2) BASO x10^3 (test code 0.06 10*3/uL 0.01-0.07 = 704-7) Lab Interpretation Abnormal (test code = 18394-6) [facility][id number] 00:00:00 Test Item Value Reference Range Interpretation Comments SARS-CoV-2 INTERPRETATION (test NEGATIVE SEE NOTE code = 80952-9) SOURCE (test code = 49863-5) NOT SPECIFIED SARS-COV 2 AntigenSARS-COV 2 Antigen
[2022-11-26] MEDS ORDERED: DIPHENHYDRAMINE 50 MG/ML VIAL ONE (01:15)
[2022-11-26] MEDS ORDERED: METHYLPREDNISOLONE 125 MG INJ ONE (01:15)
[2022-11-26] MEDS ORDERED: FAMOTIDINE 20 MG/2 ML VIAL IV ONE (01:16)
--- NOTE | 2022-11-26 02:16 | EDPHYS ---
Physician Documentation [facility] Name: Solange Raymundo Age: 67 yrs Sex: Female : 1955 Arrival Date: 11/25/2022 Time: 23:52 Bed 9 Private MD: ED Physician Blayne Thurman HPI: 11/26 00:38 This 67 yrs old Female presents to ER via Ambulatory with complaints of Rash. sp4 02:08 67-year-old female presents with acute pruritic rash within skin creases at the site sp4 where her clothing is rubbing on her skin. Patient developed acute pruritic rash in the morning yesterday after she washed her clothes and put it on. Rash is most prominent underneath the brassiere, also around the waistline and also bilateral groin creases. No respiratory compromise. Historical: - Allergies: 00:18 No Known Allergies; ll3 - Home Meds: 00:18 Nexium 20 mg Oral cpDR 1 cap once daily [Active]; valsartan-hydrochlorothiazide 160-25 ll3 mg oral tablet 1 tab daily [Active]; metoprolol tartrate 50 mg Oral tablet once [Active]; rosuvastatin 10 mg oral Capsule, Sprinkle daily [Active]; Gemtesa 75 mg oral tablet daily [Active]; - PMHx: 00:18 Hyperlipidemia; Hypertension; SVT; ll3 - Immunization history:: Client reports receiving the 2nd dose of the Covid vaccine. - Social history:: Smoking status: Patient denies any tobacco usage or history of. - Family history:: not pertinent. ROS: 02:08 Constitutional: Negative for fever, chills, and weight loss, Eyes: Negative for injury, sp4 pain, redness, and discharge, ENT: Negative for injury, pain, and discharge, Skin: Negative for injury, and discoloration, bilateral truncal rash, bilateral groin rash 02:08 All other systems are negative. Exam: 02:08 Constitutional: This is a well developed, well nourished patient who is awake, alert, sp4 and in no acute distress. Head/Face: Normocephalic, atraumatic. Eyes: Pupils equal round and reactive to light, extra-ocular motions intact. Lids and lashes normal. Conjunctiva and sclera are not injected. Cornea within normal limits. Periorbital areas with no swelling, redness, or edema. ENT: Nares patent. No nasal discharge, no septal abnormalities noted. Tympanic membranes are normal and external auditory canals are clear. Oropharynx with no redness, swelling, or masses, exudates, or evidence of obstruction, uvula midline. Mucous membranes moist. Neck: Trachea midline, no thyromegaly or masses palpated, and no cervical lymphadenopathy. Supple, full range of motion without nuchal rigidity, or vertebral point tenderness. No Meningismus. Chest/axilla: Normal chest wall appearance and motion. Nontender with no deformity. No lesions are appreciated. Cardiovascular: Regular rate and rhythm with a normal S1 and S2. No gallops, murmurs, or rubs. Normal PMI, no JVD. No pulse deficits. Respiratory: Lungs have equal breath sounds bilaterally, clear to auscultation and percussion. No rales, rhonchi or wheezes noted. No increased work of breathing, no retractions or nasal flaring. Abdomen/GI: Soft, non-tender, with normal bowel sounds. No distension or tympany. No guarding or rebound. No evidence of tenderness throughout. Back: No spinal tenderness. No costovertebral tenderness. Skin: Warm, dry with normal turgor. Normal color with no lesions, and no evidence of cellulitis. Truncal hives consistent with contact dermatitis, mostly with being skin creases with the clothing is rubbing on the skin, bilateral groin rashes consistent with contact dermatitis MS/ Extremity: Pulses equal, no cyanosis. Neurovascular intact. Full, normal range of motion. Neuro: Awake and alert, GCS 15, oriented to person, place, time, and situation. Cranial nerves II-XII grossly intact. Motor strength 5/5 in all extremities. Sensory grossly intact. Psych: Awake, alert, with orientation to person, place and time. Behavior, mood, and affect are within normal limits Vital Signs: 00:16 BP 155 / 91; Pulse 75; Resp 16; Temp 97.9(O); Pulse Ox 97% on R/A; Weight 104.33 kg ll3 (R); Height 5 ft. 4 in. (R); 00:16 Body Mass Index 39.48 (104.33 kg, 162.56 cm) ll3 MDM: 01:51 Patient medically screened. sp4 02:08 Differential diagnosis: impetigo, varicella, allergic reaction, parasite infection. sp4 Data reviewed: vital signs, nurses notes. ED course: Rash was managed as allergic dermatitis. . 02:14 ED course: Rash has improved after administration of medications for allergic sp4 dermatitis. 11/26 00:47 Order name: Saline Lock; Complete Time: 01:30 sp4 Administered Medications: 01:10 Drug: Famotidine IVP 20 mg Route: IVP; Site: left forearm; kl 01:53 Follow up: Response: No adverse reaction; Marked relief of symptoms kl 01:12 Drug: diphenhydrAMINE IVP 25 mg Route: IVP; Site: left forearm; kl 01:53 Follow up: Response: No adverse reaction; Marked relief of symptoms kl 01:18 Drug: MethylPREDNISolone Sodium Succinate IM 125 mg Route: IM; Site: left deltoid; kl 01:53 Follow up: Response: No adverse reaction; Marked relief of symptoms kl Disposition Summary: 11/26/22 02:15 Discharge Ordered Location: Home sp4 Problem: new sp4 Symptoms: have improved sp4 Condition: Stable sp4 Diagnosis - Allergic contact dermatitis due to other agents sp4 Followup: sp4 - With: Private Physician - When: 7 - 10 days - Reason: Recheck today's complaints Discharge Instructions: - Discharge Summary Sheet sp4 - Contact Dermatitis sp4 Forms: - Thank You Letter sp4 Prescriptions: - Prednisone 20 mg Oral Tablet - take 2 tablets by ORAL route once daily for 5 days; 10 tablet; Refills: 0, sp4 Product Selection Permitted Signatures: Shruthi Barnes RN RN kl Ranulfo Mathews RN RN 3 Blayne Thurman MD MD sp4
--- NOTE | 2022-11-26 02:16 | ER ---
Nurse's Notes [facility] Name: Solange Raymundo Age: 67 yrs Sex: Female : 1955 Arrival Date: 11/25/2022 Time: 23:52 Bed 9 Private MD: Diagnosis: Allergic contact dermatitis due to other agents Presentation: 11/26 00:16 Chief complaint: Patient states: C/o itchy rash to waist band of bra and pants area. ll3 Coronavirus screen: Vaccine status: Patient reports receiving the 2nd dose of the covid vaccine. At this time, the client does not indicate any symptoms associated with coronavirus-19. Ebola Screen: No symptoms or risks identified at this time. Initial Sepsis Screen: Does the patient meet any 2 criteria? No. Patient's initial sepsis screen is negative. Does the patient have a suspected source of infection? No. Patient's initial sepsis screen is negative. Risk Assessment: Do you want to hurt yourself or someone else? Patient reports no desire to harm self or others. Onset of symptoms was November 26, 2022. Care prior to arrival: Medication(s) given: Benadryl 1 hr [employer]. 00:16 Method Of Arrival: Ambulatory ll3 00:16 Acuity: DORIS 3 ll3 Triage Assessment: 00:18 General: Appears uncomfortable, Behavior is calm, cooperative. Pain: Denies pain. ll3 Neuro: Level of Consciousness is awake, alert, obeys commands, Oriented to person, place, time, situation. Respiratory: Respiratory effort is even, unlabored, Respiratory pattern is regular, symmetrical. Derm: Rash noted that is macular, itchy, red, raised, on left mid back, right mid back, diaphragm and abdomen. Historical: - Allergies: 00:18 No Known Allergies; ll3 - Home Meds: 00:18 Nexium 20 mg Oral cpDR 1 cap once daily [Active]; valsartan-hydrochlorothiazide 160-25 ll3 mg oral tablet 1 tab daily [Active]; metoprolol tartrate 50 mg Oral tablet once [Active]; rosuvastatin 10 mg oral Capsule, Sprinkle daily [Active]; Gemtesa 75 mg oral tablet daily [Active]; - PMHx: 00:18 Hyperlipidemia; Hypertension; SVT; ll3 - Immunization history:: Client reports receiving the 2nd dose of the Covid vaccine. - Social history:: Smoking status: Patient denies any tobacco usage or history of. - Family history:: not pertinent. Screenin:22 [facility] ED Fall Risk Assessment (Adult) History of falling in the last 3 months, ll3 including since admission No falls in past 3 months (0 pts) Confusion or Disorientation No (0 pts) Intoxicated or Sedated No (0 pts) Impaired Gait No (0 pts) Mobility Assist Device Used No (0 pt) Altered Elimination No (0 pt) Score/Fall Risk Level 0 - 2 = Low Risk Oriented to surroundings, Maintained a safe environment, Educated pt \T\ family on fall prevention, incl call for assistance when getting out of bed. Abuse screen: Denies threats or abuse. Denies injuries from another. Nutritional screening: No deficits noted. Tuberculosis screening: No symptoms or risk factors identified. Assessment: 00:18 General: See triage assessment. ll3 Vital Signs: 00:16 BP 155 / 91; Pulse 75; Resp 16; Temp 97.9(O); Pulse Ox 97% on R/A; Weight 104.33 kg ll3 (R); Height 5 ft. 4 in. (R); 00:16 Body Mass Index 39.48 (104.33 kg, 162.56 cm) ll3 ED Course: 11/25 23:59 Patient arrived in ED. [id number] 11/26 00:18 Triage completed. ll3 00:18 Arm band placed on Patient placed in an exam room, on a stretcher, on pulse oximetry. ll3 00:22 Patient has correct armband on for positive identification. Bed in low position. Call ll3 light in reach. Side rails up X 1. Adult w/ patient. 00:38 Blayne Thurman MD is Attending Physician. sp4 02:23 No provider procedures requiring assistance completed. IV discontinued, intact, ll3 bleeding controlled, No redness/swelling at site. Pressure dressing applied. Administered Medications: 01:10 Drug: Famotidine IVP 20 mg Route: IVP; Site: left forearm; kl 01:53 Follow up: Response: No adverse reaction; Marked relief of symptoms kl 01:12 Drug: diphenhydrAMINE IVP 25 mg Route: IVP; Site: left forearm; kl 01:53 Follow up: Response: No adverse reaction; Marked relief of symptoms kl 01:18 Drug: MethylPREDNISolone Sodium Succinate IM 125 mg Route: IM; Site: left deltoid; kl 01:53 Follow up: Response: No adverse reaction; Marked relief of symptoms Medication: 02:24 VIS not applicable for this client. ll3 Outcome: 02:15 Discharge ordered by . sp4 02:23 Discharged to home ambulatory, with significant other. ll3 02:23 Condition: stable 02:23 Discharge instructions given to patient, significant other, Instructed on discharge instructions, follow up and referral plans. medication usage, Demonstrated understanding of instructions, follow-up care, medications, Prescriptions given X 1. 02:24 Patient left the ED. ll3 Signatures: Shruthi Barnes RN RN Francine Davey [place], RN RN ll3 Blayne Thurman MD MD sp4
[2022-11-26 02:34] VITALS: BP 155/91; TEMP 97.9; O2SAT 97
== END 2022-11-26 02:24 | disposition home or self-care (01) ==
LOC: ER 23:52
DX: L23.89 Allergic contact dermatitis due to other agents (principal)
CPT/HCPCS: J1200; J2930; 96372; 96374; 96375; 99284